=== PATIENT | female | born 1955 | race Caucasian/White ===

== ENCOUNTER → 2017-10-17 15:17 | Outpatient (CLI) | payer OTHER, SELFPAY ==
[2017-10-17 16:10] LABS: AST(SGOT) 20 U/L (15-37); Absolute Lymphocyte Count 1.33 X10^3/ul (0.83-4.51); Absolute Neutrophil Count 2.3 X10^3/uL (2.0-7.7); Alanine Aminotransfer ALT/SGPT 28 U/L (13-56); Albumin, Serum 3.6 g/dL (3.2-5.0); BUN 8 mg/dL (7-18); Basophil# 0.03 X10^3/uL; Basophil% 0.7 % (0-1); CRP 8.18 mg/L (0.0-3.0); Creatinine, Serum 0.78 mg/dL (0.55-1.02); EST Glomerular Filtration Rate 80 mL/min (>60); Eosinophil# 0.04 X10^3/uL; Est Glom Filt Rate - Afr Amer 97 mL/min (>60); Hematocrit 40.8 % (37-47); Hemoglobin 13.4 g/dl (12.0-15.0); Lymphocyte # 1.33 X10^3/ul (4.0); Lymphocyte % 32.6 % (19-41); Mean Corp Hgb Conc 32.8 g/gl (32-36); Mean Corpuscular Hgb 32.9 pg (27.0-32.0); Mean Corpuscular Volume 100.2 fL (81-99); Mean Platelet Vol. 11.3 fl (6.2-12.0); Monocyte% 9.8 % (0-10); Neutrophil # 2.28 X10^3/uL (2.7-7.7); Neutrophil % 55.9 % (47-70); Platelet Count 162 K/mm3 (150-450); RBC Distribution Width CV 12.4 % (11.6-14.6); RBC Distribution Width SD 44.8 fl (35.1-43.9); Red Blood Count 4.07 M/mm3 (4.2-5.4); White Blood Count 4.1 K/mm3 (4.4-11.0)
[2017-10-17 16:18] LABS: POSITIVE COUNT NO; POSITIVE DIFFERENTIAL NO
[2017-10-17 16:19] LABS: POSITIVE MORPHOLOGY NO
[2017-10-17 16:33] LABS: Erythrocyte Sedimentation Rate 7 mm/hr (0-30)
== END ==
PROVIDERS: Family Provider Internal Medicine Infectious Disease; PCP Internal Medicine Infectious Disease; Visit Provider Internal Medicine Rheumatology
DX: M81.0 Age-related osteoporosis without current pathological fracture (principal)
CPT/HCPCS: 36415; 82040; 82565; 84450; 84460; 84520; 85025; 85652; 86140

== ENCOUNTER → 2018-01-20 10:53 | Outpatient (CLI) | payer OTHER, SELFPAY ==
[2018-01-20 12:23] LABS: Vitamin D,25 Hydroxy 34.1 ng/mL (29.95-100.01)
== END ==
PROVIDERS: Family Provider Internal Medicine Infectious Disease; PCP Internal Medicine Infectious Disease; Visit Provider Internal Medicine Rheumatology
DX: M81.0 Age-related osteoporosis without current pathological fracture (principal)
CPT/HCPCS: 36415; 82306; 82310

== ENCOUNTER → 2018-01-23 09:09 | Outpatient (CLI) | payer OTHER, SELFPAY ==
[2018-01-23 10:13] LABS: Absolute Lymphocyte Count 1.15 X10^3/ul (0.83-4.51); Absolute Neutrophil Count 3.7 X10^3/uL (2.0-7.7); Basophil# 0.02 X10^3/uL; Basophil% 0.4 % (0-1); Eosinophil# 0.08 X10^3/uL; Eosinophils% 1.5 % (0-5); Hematocrit 43.1 % (37-47); Hemoglobin 14.2 g/dl (12.0-15.0); Lymphocyte # 1.15 X10^3/ul (4.0); Lymphocyte % 21.8 % (19-41); Mean Corp Hgb Conc 32.9 g/gl (32-36); Mean Corpuscular Hgb 33.1 pg (27.0-32.0); Mean Corpuscular Volume 100.5 fL (81-99); Mean Platelet Vol. 11.4 fl (6.2-12.0); Monocyte# 0.37 X10^3/uL; Neutrophil # 3.65 X10^3/uL (2.7-7.7); Neutrophil % 69.3 % (47-70); Platelet Count 155 K/mm3 (150-450); RBC Distribution Width CV 11.9 % (11.6-14.6); Red Blood Count 4.29 M/mm3 (4.2-5.4); White Blood Count 5.3 K/mm3 (4.4-11.0)
[2018-01-23 10:31] LABS: POSITIVE COUNT NO; POSITIVE DIFFERENTIAL NO; POSITIVE MORPHOLOGY NO
[2018-01-23 10:37] LABS: AST(SGOT) 24 U/L (15-37); Alanine Aminotransfer ALT/SGPT 21 U/L (13-56); Albumin, Serum 3.5 g/dL (3.2-5.0); BUN 8 mg/dL (7-18); CRP < 2.90 mg/L (0.0-3.0); EST Glomerular Filtration Rate 78 mL/min (>60); Est Glom Filt Rate - Afr Amer 94 mL/min (>60)
[2018-01-23 10:38] LABS: Erythrocyte Sedimentation Rate 2 mm/hr (0-30)
== END ==
PROVIDERS: Family Provider Internal Medicine Infectious Disease; PCP Internal Medicine Infectious Disease; Visit Provider Internal Medicine Rheumatology
DX: M81.0 Age-related osteoporosis without current pathological fracture (principal)
CPT/HCPCS: 36415; 82040; 82565; 84450; 84460; 84520; 85025; 85652; 86140

== ENCOUNTER → 2018-05-12 11:48 | Outpatient (CLI) | payer OTHER, SELFPAY ==
--- NOTE | 2018-05-12 11:52 | BI_ITS ---
MAMMOGRAPHY - BILATERAL SCREENING REASON FOR EXAM: Female, 63 years old. Routine annual screening examination. PERTINENT HISTORY: Sister with breast cancer. TECHNIQUE: Digital bilateral breast travis (3D mammographic acquisition) in the CC and MLO projections. 2-D mediolateral oblique (MLO) and craniocaudad (CC) views of both breasts were obtained. CAD: Full Field Digital Mammography with Computer Added Detection was performed. COMPARISON: Comparison is made with prior study dated June 22, 2015 and July 16, 2014. FINDINGS: Breast Composition: There are scattered areas of fibroglandular density. There are no dominant masses or suspicious calcifications. No other significant abnormalities are identified. There has been no significant change since the prior study. BI/SCREENING MAMM (CAD), BILAT IMPRESSION: Stable bilateral screening mammogram. Yearly follow-up mammogram recommended. (A) ASSESSMENT CATEGORY: BIRADS Category 1: Negative. A letter regarding these results will be sent to the patient by the facility within 30 days. Approximately 10% of breast cancers are not detected by mammography. A normal mammogram should not delay biopsy of a clinically suspicious abnormality. [id number] Electronically Signed: Nikolas Masters MD at 11:08 EDT Tel [phone], Service support ,
== END ==
PROVIDERS: Family Provider Internal Medicine Infectious Disease; PCP Internal Medicine Infectious Disease; Referring Provider Obstetrics & Gynecology; Visit Provider Obstetrics & Gynecology
DX: Z12.31 Encounter for screening mammogram for malignant neoplasm of breast (principal)
CPT/HCPCS: 77063; 77067

== ENCOUNTER → 2018-05-14 15:27 | Outpatient (CLI) | payer OTHER, SELFPAY ==
[2018-05-14 17:53] LABS: AST(SGOT) 19 U/L (15-37); Alanine Aminotransfer ALT/SGPT 24 U/L (13-56); Albumin, Serum 3.6 g/dL (3.2-5.0); BUN 9 mg/dL (7-18); CRP < 2.90 mg/L (0.0-3.0); Creatinine, Serum 0.83 mg/dL (0.55-1.02); EST Glomerular Filtration Rate 74 mL/min (>60); Est Glom Filt Rate - Afr Amer 89 mL/min (>60)
[2018-05-14 18:04] LABS: Basophil# 0.04 X10^3/uL; Basophil% 0.7 % (0-1); Eosinophil# 0.07 X10^3/uL; Eosinophils% 1.2 % (0-5); Hematocrit 41.8 % (37-47); Hemoglobin 13.7 g/dl (12.0-15.0); Lymphocyte % 19.2 % (19-41); Mean Corp Hgb Conc 32.8 g/gl (32-36); Mean Corpuscular Hgb 32.6 pg (27.0-32.0); Mean Corpuscular Volume 99.5 fL (81-99); Mean Platelet Vol. 11.7 fl (6.2-12.0); Monocyte% 8.7 % (0-10); Neutrophil # 4.02 X10^3/uL (2.7-7.7); Neutrophil % 70.2 % (47-70); Platelet Count 185 K/mm3 (150-450); RBC Distribution Width CV 12.4 % (11.6-14.6); White Blood Count 5.7 K/mm3 (4.4-11.0)
[2018-05-14 18:11] LABS: POSITIVE COUNT NO; POSITIVE DIFFERENTIAL NO; POSITIVE MORPHOLOGY NO
[2018-05-14 18:23] LABS: Erythrocyte Sedimentation Rate 3 mm/hr (0-30)
== END ==
PROVIDERS: Family Provider Internal Medicine Infectious Disease; PCP Internal Medicine Infectious Disease; Referring Provider Internal Medicine Rheumatology; Visit Provider Internal Medicine Rheumatology
DX: M81.0 Age-related osteoporosis without current pathological fracture (principal)
CPT/HCPCS: 36415; 82040; 82565; 84450; 84460; 84520; 85025; 85652; 86140

== ENCOUNTER → 2018-08-07 11:29 | Outpatient (CLI) | payer OTHER, SELFPAY ==
[2018-08-07 14:10] LABS: Erythrocyte Sedimentation Rate 2 mm/hr (0-30)
[2018-08-07 14:15] LABS: Absolute Lymphocyte Count 1.82 X10^3/ul (0.83-4.51); Absolute Neutrophil Count 2.8 X10^3/uL (2.0-7.7); Basophil# 0.03 X10^3/uL; Basophil% 0.6 % (0-1); Eosinophil# 0.04 X10^3/uL; Eosinophils% 0.8 % (0-5); Hematocrit 44.9 % (37-47); Hemoglobin 14.6 g/dl (12.0-15.0); Lymphocyte # 1.82 X10^3/ul (4.0); Lymphocyte % 36.1 % (19-41); Mean Corp Hgb Conc 32.5 g/gl (32-36); Mean Corpuscular Hgb 32.8 pg (27.0-32.0); Mean Corpuscular Volume 100.9 fL (81-99); Mean Platelet Vol. 11.8 fl (6.2-12.0); Monocyte# 0.36 X10^3/uL; Monocyte% 7.1 % (0-10); Neutrophil # 2.78 X10^3/uL (2.7-7.7); Neutrophil % 55.2 % (47-70); Platelet Count 178 K/mm3 (150-450); RBC Distribution Width CV 12.6 % (11.6-14.6); RBC Distribution Width SD 46.2 fl (35.1-43.9); Red Blood Count 4.45 M/mm3 (4.2-5.4)
[2018-08-07 14:16] LABS: POSITIVE COUNT NO; POSITIVE DIFFERENTIAL NO; POSITIVE MORPHOLOGY NO
[2018-08-07 14:18] LABS: AST(SGOT) 22 U/L (15-37); Alanine Aminotransfer ALT/SGPT 25 U/L (13-56); Albumin, Serum 3.8 g/dL (3.2-5.0); BUN 8 mg/dL (7-18); CRP < 2.90 mg/L (0.0-3.0); Calcium,Total 8.8 mg/dL (8.5-10.1); Creatinine, Serum 0.85 mg/dL (0.55-1.02); EST Glomerular Filtration Rate 72 mL/min (>60); Est Glom Filt Rate - Afr Amer 87 mL/min (>60)
[2018-08-07 14:23] LABS: Vitamin D,25 Hydroxy 74.4 ng/mL (29.95-100.01)
--- OUTSIDE RECORDS SUMMARY | 2018-10-12 03:07 | XMS RPT_ITS ---
:1955 Author Organization OHIP Support Name Relationship Address Phone R Unavailable Unavailable Unavailable SCHRIER, KAVITA Unavailable [address] + [place] [address] Marsha HURTADO Unavailable [address] + [place] [address] R Unavailable Unavailable Unavailable SCHRIER, KAVITA Unavailable [address] + [place] [address] Marsha HURTADO Unavailable [address] + [place] [address] R Unavailable Unavailable Unavailable SCHRIER, KAVITA Unavailable [address] + [place] [address] Marsha HURTADO Unavailable [address] + [place] [address] NOT GIVEN Unavailable Unavailable Unavailable NOT GIVEN Unavailable Unavailable Unavailable NOT GIVEN Unavailable Unavailable Unavailable R Unavailable Unavailable Unavailable NBA KAVITA Unavailable [address] + [place] [address] Marsha HURTADO Unavailable [address] + [place] [address] R Unavailable Unavailable Unavailable NBA, KAVITA Unavailable [address] + [place] [address] Marsha HURTADO Unavailable [address] + [place] [address] R Unavailable Unavailable Unavailable SCHALYSSA, KAVITA Unavailable [address] + [place] [address] Marsha HURTADO Unavailable [address] + [place] [address] Care Team Providers Name Role Phone IVELISSE GRIFFITH MD Admitting Unavailable IVELISSE GRIFFITH MD Attending Unavailable IVELISSE GRIFFITH MD Primary Care Unavailable IVELISSE GRIFFITH MD Consulting Unavailable PROVIDER, UNKNOWN Consulting Unavailable PROVIDER, UNKNOWN Consulting Unavailable PROVIDER, UNKNOWN Consulting Unavailable IVELISSE GIRFFITH MD Admitting Unavailable IVELISSE GRIFFITH MD Attending Unavailable IVELISSE GRIFFITH MD Primary Care Unavailable IVELISSE GRIFFITH MD Consulting Unavailable PROVIDER, UNKNOWN Consulting Unavailable PROVIDER, UNKNOWN Consulting Unavailable PROVIDER, UNKNOWN Consulting Unavailable IVELISSE GRIFFITH MD Admitting Unavailable IVELISSE GRIFFITH MD Attending Unavailable IVELISSE GRIFFITH MD Primary Care Unavailable IVELISSE GRIFFITH MD Consulting Unavailable PROVIDER, UNKNOWN Consulting Unavailable PROVIDER, UNKNOWN Consulting Unavailable PROVIDER, UNKNOWN Consulting Unavailable ALFONSO HAIR Referring Unavailable NADYA, ACHAL Attending Unavailable NADYA, ACHAL Referring Unavailable OMRAN, YASSER Primary Care Unavailable NADYA, ACHAL Attending Unavailable NADYA, ACHAL Referring Unavailable OMRAN, YASSER Primary Care Unavailable NADYA, ACHAL Attending Unavailable NADYA, ACHAL Referring Unavailable OMRAN, YASSER Primary Care Unavailable Alfonso Hair Consulting Unavailable NADYA, ACHAL Attending Unavailable NADYA, ACHAL Referring Unavailable OMRAN, YASSER Primary Care Unavailable Alfonso Hair Consulting Unavailable Sav Lindsay Attending Unavailable OMRAN, YASSER Primary Care Unavailable Sav Lindsay Referring Unavailable NADYA, ACHAL Attending Unavailable NADYA, ACHAL Referring Unavailable OMRAN, YASSER Primary Care Unavailable PROBLEMS PROBLEMS DATE TYPE CONDITION / CODE ATTENDING STATUS SOURCE 08/07/2018 Unknown M81.0 - NADYA, ACHAL Active [place] [facility] osteoporosis [facility] without current Repository pathological fracture / M81.0(ICD-10) 07/16/2018 Active Unknown / NA Active [facility](Unknown) [facility] [place] Repository 2018 Principle Immunodeficiency, IVELISSE GRIFFITH Active [facility] Diagnosis unspecified / MD Rivera D849(ICD-10) Hospital Repository 2018 Secondary Age-related IVELISSE GRIFFITH Active [facility] Diagnosis osteoporosis [facility] without current Hospital pathological Repository fracture / M810(ICD-10) 04/01/2018 Principle Rheumatoid IVELISSE GRIFFITH Active [facility] Diagnosis arthritis, [facility] unspecified / Hospital M069(ICD-10) Repository 03/25/2018 Principle Encounter for IVELISSE GRIFFITH Active Jani Aakash Diagnosis general adult [facility] examination Repository without abnormal findings / Z0000(ICD-10) PROCEDURES PROCEDURES No Procedure Records FoundRESULTS RESULTS ERYTHROCYTE SED RATE Collected: 08/07/2018 Status: F Source: [place] 11:38 AM [facility] REPOSITORY TYPE CODE TESTS RESULT OUT OF RANGE REFERENCE UNITS LAB L102.0000 0-30 mm/hr Normal SED RATE 2 Performed By: #### L101.9900, L100.0100 #### [facility] [address] [place], [address] CBC W/DIFF, AUTOMATED Collected: 08/07/2018 Status: F Source: [place] 11:38 AM [facility] REPOSITORY TYPE CODE TESTS RESULT OUT OF RANGE REFERENCE UNITS LAB L100.1000 4.4-11.0 K/mm3 Normal WBC 5.0 LAB L100.1200 4.2-5.4 M/mm3 Normal RBC 4.45 LAB L100.1300 12.0-15.0 g/dl Normal HGB 14.6 LAB L100.1400 37-47 % Normal HCT 44.9 LAB L100.1500 81-99 fL High MCV 100.9 LAB L100.1600 27.0-32.0 pg High MCH 32.8 LAB L100.1700 32-36 g/gl Normal MCHC 32.5 LAB L100.1810 11.6-14.6 % Normal RDW CV 12.6 LAB L100.1820 35.1-43.9 fl High RDW SD 46.2 LAB L100.1900 150-450 K/mm3 Normal PLT 178 LAB L100.2000 6.2-12.0 fl Normal MPV 11.8 LAB L100.2100 47-70 % Normal NEUT% 55.2 LAB L100.2200 19-41 % Normal LY% 36.1 LAB L100.2300 0-10 % Normal MONO% 7.1 LAB L100.2400 0-5 % Normal EO% 0.8 LAB L100.2500 0-1 % Normal BASO% 0.6 LAB L100.2550 0.0-0.9 % Normal IM GRAN % 0.200 Result Comment: IG% - Immature Granulocytes (promyelocytes, myelocytes and metamyelocytes) > 1% indicates that a LEFT SHIFT is Present. LAB L100.2620 2.0-7.7 X10 3/uL Normal Absolute Neut 2.8 LAB L100.2720 0.83-4.51 X10 3/ul Normal Absolute Lymph 1.82 Performed By: #### L101.9900, L100.0100 #### [facility] [address] [place], [address] BUN Collected: 08/07/2018 Status: F Source: [place] 11:38 AM [facility] REPOSITORY TYPE CODE TESTS RESULT OUT OF RANGE REFERENCE UNITS LAB L501.1000 7-18 mg/dL Normal BUN 8 Performed By: #### L501.1000, L501.1105, L501.1800, L501.2200, L501.4100, L501.4405, L501.6710 #### [facility] [address] [place], [address] SERUM CREATININE AND Collected: 08/07/2018 Status: F Source: [place] GFR 11:38 AM [facility] REPOSITORY TYPE CODE TESTS RESULT OUT OF RANGE REFERENCE UNITS LAB L501.1100 0.55-1.02 mg/dL Normal 0.85 CREAT,SERUM Result Comment: The validity of the calculated GFR AND GFRAA in patients over 70 years has not been determined. Clinical correlation is essential. LAB L501.1110 >60 mL/min Normal EST GFR 72 Result Comment: Non- GFR Calc LAB L501.1115 >60 mL/min Normal EST GFR - AA 87 Result Comment: GFR Calc Performed By: #### L501.1000, L501.1105, L501.1800, L501.2200, L501.4100, L501.4405, L501.6710 #### [facility] [address] [place], [address] ALBUMIN, SERUM Collected: 08/07/2018 Status: F Source: [place] 11:38 AM [facility] REPOSITORY TYPE CODE TESTS RESULT OUT OF RANGE REFERENCE UNITS LAB L501.1800 3.2-5.0 g/dL Normal ALB 3.8 Performed By: #### L501.1000, L501.1105, L501.1800, L501.2200, L501.4100, L501.4405, L501.6710 #### [facility] [address] [place], [address] CALCIUM,TOTAL Collected: 08/07/2018 Status: F Source: [place] 11:38 AM [facility] REPOSITORY TYPE CODE TESTS RESULT OUT OF RANGE REFERENCE UNITS LAB L501.2200 8.5-10.1 mg/dL Normal CA 8.8 Performed By: #### L501.1000, L501.1105, L501.1800, L501.2200, L501.4100, L501.4405, L501.6710 #### [facility] [place], [place], [id number] AST(SGOT) Collected: 08/07/2018 Status: F Source: [place] 11:38 AM [facility] REPOSITORY TYPE CODE TESTS RESULT OUT OF RANGE REFERENCE UNITS LAB L501.4100 15-37 U/L Normal AST 22 Performed By: #### L501.1000, L501.1105, L501.1800, L501.2200, L501.4100, L501.4405, L501.6710 #### [facility] [address] [place], [address] ALANINE AMINOTRANSFERAS Collected: 08/07/2018 Status: F Source: [place] (SGPT) 11:38 AM [facility] REPOSITORY TYPE CODE TESTS RESULT OUT OF RANGE REFERENCE UNITS LAB L501.4405 13-56 U/L Normal ALT 25 Performed By: #### L501.1000, L501.1105, L501.1800, L501.2200, L501.4100, L501.4405, L501.6710 #### [facility] [address] [place], [address] CRP Collected: 08/07/2018 Status: F Source: [place] 11:38 AM [facility] REPOSITORY TYPE CODE TESTS RESULT OUT OF RANGE REFERENCE UNITS LAB L501.6710 0.0-3.0 mg/L Normal < 2.90 C-REACTIVE PROT Result Comment: C-Reactive Protein (CRP) provides useful information for the diagnosis, therapy and monitoring of inflammatory processes and associated diseases. For the evaluation of Relative Risk for Cardiovascular Disease, a High Sensitivity CRP (HSCRP) should be ordered. Performed By: #### L501.1000, L501.1105, L501.1800, L501.2200, L501.4100, L501.4405, L501.6710 #### [facility] [address] [place], [place], [address] VITAMIN D,25 HYDROXY Collected: 08/07/2018 Status: F Source: [place] 11:38 AM [facility] REPOSITORY TYPE CODE TESTS RESULT OUT OF RANGE REFERENCE UNITS LAB L506.1000 29.95-100.01 ng/mL Normal Vitamin D 74.4 25-OH Result Comment: Vitamin D 25(OH) Status Range Deficiency <20 ng/mL (50nmol/L) Insuffciency 20 - 30 ng/mL (50 - 75 nmol/L) Sufficiency 30 - 100 ng/mL (75 - 250 nmol/L) Toxicity >100 ng/mL (>250 nmol/L) Performed By: #### L506.1000 #### [facility] [address] [place], [place], [address] MRI BRAIN WO/W Observed: 07/16/2018 Status: F [facility] REPOSITORY * * *Final Report* * * DATE OF EXAM: Jul 16 2018 11:55AM [facility] 0295 - MRI BRAIN WO/W IVCON / PROCEDURE REASON: MULTIPLE SCLEROSIS * * * * Physician Interpretation * * * * EXAMINATION: MRI BRAIN WO/W IVCON HISTORY: Multiple sclerosis. Routine follow-up TECHNIQUE: Brain MRI with demyelinating disease protocol with and without IV gadolinium. MQ: [id number] Contrast: 9ml mL Dotarem IV COMPARISON: 11/13/2016 brain MRI without and with contrast RESULT: MR BRAIN: Parenchymal Findings: There are multiple foci of hyperintensity on FLAIR and T2 within the white matter, compatible with the clinical diagnosis of multiple sclerosis. New T2 Lesions: None Interval Improvement: None. New Enhancing Lesions: None T2 Gary of Disease: Mild in the supratentorial white matter, and more advanced in severity in the aldo, similar to the prior exam. Parenchymal Volume Loss: Mild. Other Significant Findings/Site(s) of New T2 Lesion(s): Minimally increased heterogenous signal in the right frontal white matter between 2 previously discrete lesions (compare series 2, image 10 on the present study versus series 2, image 9 on the prior study), although no discrete new lesion is present in this region. IMPRESSION: Multiple intracranial white matter lesions compatible with multiple sclerosis. No new T2 lesions and no new enhancing lesions. Mild parenchymal volume loss. Other Significant Intracranial Findings: None *Note: New T2 Lesions includes both new and enlarging plaques on T2-weighted FLAIR images (new lesions greater than or equal to 5mm3 or an increase in diameter of an existing lesion by greater than or equal to 2mm). Shop Manager: PSCB Transcribe Date/Time: Jul 16 2018 2:25P Dictated by : GOLD CARRILLO MD This examination was interpreted and the report reviewed and electronically signed by: GOLD CARRILLO MD on Jul 16 2018 2:32PM EST [id number] PROGRESS Observed: 07/16/2018 Status: COMPLETED Source: [place] EM 11:45 AM [facility] REPOSITORY O ID: [id number] Author: Arianna (Luann Hess Service: (none) Author Type: [place] Type: Progress Notes Filed: 07/16/2018 11:46 AM Note Text: Radiology Service Progress Note PATIENT NAME: Cookie Hurtado DATE OF SERVICE: July 16, 2018 TIME: 11:45 AM PATIENT IDENTITY VERIFICATION COMPLETED USING TWO (2) METHODS: Patient confirmed name verbally and Date of . PATIENT GENDER DATA: Female. status: : No status: NO. PATIENT RELEVANT IMPLANT DATA REVIEWED: Yes CONTRAST INDUCED NEPHROPATHY RISK FACTORS: Patient age > 60 years CREATININE: No results found for: CREAT, EGFROTH, EGFRAA P.O.C.T. RESULTS: Outside Creatinine: .83 mg/dl, Calculated GFR 74, Date 05/14/18 July 16, 2018 RADIOLOGIST NOTIFIED?: No ALLERGIES: Reviewed and unchanged CONTRAST ALLERGY: NO. PERIPHERAL IV ACCESS: Ambulatory: IV type: A peripheral IV was started in the Right antecubital site with a Angio cath: 22 gauge., Site assessment: Clean,Dry and Intact, Site disposition Discontinued RADIOLOGY DEPARTMENT: MR; Exam(s) Completed: Head: Multiple Sclerosis SIGNED BY: RT Oumar July 16, 2018 11:45 AM BUN Collected: 05/14/2018 Status: F Source: [place] 3:40 PM [facility] REPOSITORY TYPE CODE TESTS RESULT OUT OF RANGE REFERENCE UNITS LAB L501.1000 7-18 mg/dL Normal BUN 9 Performed By: #### L501.1000, L501.1105, L501.1800, L501.4100, L501.4405, L501.6710 #### [facility] [address] [place], [place], [id number] SERUM CREATININE AND Collected: 05/14/2018 Status: F Source: [place] G[place] 3:40 PM [facility] REPOSITORY TYPE CODE TESTS RESULT OUT OF RANGE REFERENCE UNITS LAB L501.1100 0.55-1.02 mg/dL Normal 0.83 CREAT,SERUM Result Comment: The validity of the calculated GFR AND GFRAA in patients over 70 years has not been determined. Clinical correlation is essential. LAB L501.1110 >60 mL/min Normal EST GFR 74 Result Comment: Non- GFR Calc LAB L501.1115 >60 mL/min Normal EST GFR - AA 89 Result Comment: GFR Calc Performed By: #### L501.1000, L501.1105, L501.1800, L501.4100, L501.4405, L501.6710 #### [facility] [address] [place], [address] ALBUMIN, SERUM Collected: 05/14/2018 Status: F Source: [place] 3:40 PM [facility] REPOSITORY TYPE CODE TESTS RESULT OUT OF RANGE REFERENCE UNITS LAB L501.1800 3.2-5.0 g/dL Normal ALB 3.6 Performed By: #### L501.1000, L501.1105, L501.1800, L501.4100, L501.4405, L501.6710 #### [facility] [address] [place], [place], [address] AST(SGOT) Collected: 05/14/2018 Status: F Source: [place] 3:40 PM [facility] REPOSITORY TYPE CODE TESTS RESULT OUT OF RANGE REFERENCE UNITS LAB L501.4100 15-37 U/L Normal AST 19 Result Comment: Slight Hemolysis, Result may be falsely increased. Performed By: #### L501.1000, L501.1105, L501.1800, L501.4100, L501.4405, L501.6710 #### [facility] [address] [place], [place], [id number] ALANINE AMINOTRANSFERAS Collected: 05/14/2018 Status: F Source: [place] (SGPT) 3:40 PM [facility] REPOSITORY TYPE CODE TESTS RESULT OUT OF RANGE REFERENCE UNITS LAB L501.4405 13-56 U/L Normal ALT 24 Performed By: #### L501.1000, L501.1105, L501.1800, L501.4100, L501.4405, L501.6710 #### [facility] [address] [facility] [place], [place], [id number] CRP Collected: 05/14/2018 Status: F Source: [place] 3:40 PM [facility] REPOSITORY TYPE CODE TESTS RESULT OUT OF RANGE REFERENCE UNITS LAB L501.6710 0.0-3.0 mg/L Normal < 2.90 C-REACTIVE PROT Result Comment: C-Reactive Protein (CRP) provides useful information for the diagnosis, therapy and monitoring of inflammatory processes and associated diseases. For the evaluation of Relative Risk for Cardiovascular Disease, a High Sensitivity CRP (HSCRP) should be ordered. Performed By: #### L501.1000, L501.1105, L501.1800, L501.4100, L501.4405, L501.6710 #### [facility] [address] [place], [place], [id number] CBC W/DIFF, AUTOMATED Collected: 05/14/2018 Status: F Source: [place] 3:40 PM [facility] REPOSITORY TYPE CODE TESTS RESULT OUT OF RANGE REFERENCE UNITS LAB L100.1000 4.4-11.0 K/mm3 Normal WBC 5.7 LAB L100.1200 4.2-5.4 M/mm3 Normal RBC 4.20 LAB L100.1300 12.0-15.0 g/dl Normal HGB 13.7 LAB L100.1400 37-47 % Normal HCT 41.8 LAB L100.1500 81-99 fL High MCV 99.5 LAB L100.1600 27.0-32.0 pg High MCH 32.6 LAB L100.1700 32-36 g/gl Normal MCHC 32.8 LAB L100.1810 11.6-14.6 % Normal RDW CV 12.4 LAB L100.1820 35.1-43.9 fl High RDW SD 45.0 LAB L100.1900 150-450 K/mm3 Normal PLT 185 LAB L100.2000 6.2-12.0 fl Normal MPV 11.7 LAB L100.2100 47-70 % High NEUT% 70.2 LAB L100.2200 19-41 % Normal LY% 19.2 LAB L100.2300 0-10 % Normal MONO% 8.7 LAB L100.2400 0-5 % Normal EO% 1.2 LAB L100.2500 0-1 % Normal BASO% 0.7 LAB L100.2550 0.0-0.9 % Normal IM GRAN % 0.000 Result Comment: IG% - Immature Granulocytes (promyelocytes, myelocytes and metamyelocytes) > 1% indicates that a LEFT SHIFT is Present. LAB L100.2620 2.0-7.7 X10 3/uL Normal Absolute Neut 4.0 LAB L100.2720 0.83-4.51 X10 3/ul Normal Absolute Lymph 1.10 Performed By: #### L100.0100, L101.9900 #### [facility] [address] [facility] [place], [address] ERYTHROCYTE SED RATE Collected: 05/14/2018 Status: F Source: [place] 3:40 PM [facility] REPOSITORY TYPE CODE TESTS RESULT OUT OF RANGE REFERENCE UNITS LAB L102.0000 0-30 mm/hr Normal SED RATE 3 Performed By: #### L100.0100, L101.9900 #### [facility] [address] [place] [place], [address] SCREENING MAMM (CAD), Observed: 05/12/2018 Status: F Source: [place] 11:54 AM [facility] REPOSITORY [facility] Imaging Services [address] [place] [address] SCREENING MAMM (CAD), BILAT MR#: [id number] Acct: [id number] Name: COOKIE HURTADO Rep #: [id number] : 1955 F 63 From: Nikolas Masters MD PCP: IVELISSE GRIFFITH Status: REG CLI Study: SCREENING MAMM (CAD), BILAT Date of Exam: 05/12/18 Exam# [id number] Ordering Dr: Sav Lindsay MD MAMMOGRAPHY - BILATERAL SCREENING REASON FOR EXAM: Female, 63 years old. Routine annual screening examination. PERTINENT HISTORY: Sister with breast cancer. TECHNIQUE: Digital bilateral breast travis (3D mammographic acquisition) in the CC and MLO projections. 2-D mediolateral oblique (MLO) and craniocaudad (CC) views of both breasts were obtained. CAD: Full Field Digital Mammography with Computer Added Detection was performed. COMPARISON: Comparison is made with prior study dated June 22, 2015 and July 16, 2014. FINDINGS: Breast Composition: There are scattered areas of fibroglandular density. There are no dominant masses or suspicious calcifications. No other significant abnormalities are identified. There has been no significant change since the prior study. BI/SCREENING MAMM (CAD), BILAT IMPRESSION: Stable bilateral screening mammogram. Yearly follow-up mammogram recommended. (A) ASSESSMENT CATEGORY: BIRADS Category 1: Negative. A letter regarding these results will be sent to the patient by the facility within 30 days. Approximately 10% of breast cancers are not detected by mammography. A normal mammogram should not delay biopsy of a clinically suspicious abnormality. [id number] Electronically Signed: Nikolas Masters MD at 11:08 EDT Tel [phone], Service support , CC: Sav Lindsay MD; IVELISSE GRIFFITH Shop Manager: Signed CBC W/DIFF, AUTOMATED Collected: 01/23/2018 Status: F Source: [place] 9:23 AM [facility] REPOSITORY TYPE CODE TESTS RESULT OUT OF RANGE REFERENCE UNITS LAB L100.1000 4.4-11.0 K/mm3 Normal WBC 5.3 LAB L100.1200 4.2-5.4 M/mm3 Normal RBC 4.29 LAB L100.1300 12.0-15.0 g/dl Normal HGB 14.2 LAB L100.1400 37-47 % Normal HCT 43.1 LAB L100.1500 81-99 fL High MCV 100.5 LAB L100.1600 27.0-32.0 pg High MCH 33.1 LAB L100.1700 32-36 g/gl Normal MCHC 32.9 LAB L100.1810 11.6-14.6 % Normal RDW CV 11.9 LAB L100.1820 35.1-43.9 fl Normal RDW SD 43.0 LAB L100.1900 150-450 K/mm3 Normal PLT 155 LAB L100.2000 6.2-12.0 fl Normal MPV 11.4 LAB L100.2100 47-70 % Normal NEUT% 69.3 LAB L100.2200 19-41 % Normal LY% 21.8 LAB L100.2300 0-10 % Normal MONO% 7.0 LAB L100.2400 0-5 % Normal EO% 1.5 LAB L100.2500 0-1 % Normal BASO% 0.4 LAB L100.2550 0.0-0.9 % Normal IM GRAN % 0.000 Result Comment: IG% - Immature Granulocytes (promyelocytes, myelocytes and metamyelocytes) > 1% indicates that a LEFT SHIFT is Present. LAB L100.2620 2.0-7.7 X10 3/uL Normal Absolute Neut 3.7 LAB L100.2720 0.83-4.51 X10 3/ul Normal Absolute Lymph 1.15 Performed By: #### L100.0100, L101.9900 #### [facility] [address] [place], [address] ERYTHROCYTE SED RATE Collected: 01/23/2018 Status: F Source: [place] 9:23 AM [facility] REPOSITORY TYPE CODE TESTS RESULT OUT OF RANGE REFERENCE UNITS LAB L102.0000 0-30 mm/hr Normal SED RATE 2 Performed By: #### L100.0100, L101.9900 #### [facility] [address] [place], [address] BUN Collected: 01/23/2018 Status: F Source: [place] 9:23 AM [facility] REPOSITORY TYPE CODE TESTS RESULT OUT OF RANGE REFERENCE UNITS LAB L501.1000 7-18 mg/dL Normal BUN 8 Performed By: #### L501.1000, L501.1105, L501.1800, L501.4100, L501.4405, L501.6710 #### [facility] [address] [place], [address] SERUM CREATININE AND Collected: 01/23/2018 Status: F Source: [place] GFR 9:23 AM [facility] REPOSITORY TYPE CODE TESTS RESULT OUT OF RANGE REFERENCE UNITS LAB L501.1100 0.55-1.02 mg/dL Normal 0.80 CREAT,SERUM Result Comment: The validity of the calculated GFR AND GFRAA in patients over 70 years has not been determined. Clinical correlation is essential. LAB L501.1110 >60 mL/min Normal EST GFR 78 Result Comment: Non- GFR Calc LAB L501.1115 >60 mL/min Normal EST GFR - AA 94 Result Comment: GFR Calc Performed By: #### L501.1000, L501.1105, L501.1800, L501.4100, L501.4405, L501.6710 #### [facility] [address] [place], [address] ALBUMIN, SERUM Collected: 01/23/2018 Status: F Source: [place] 9:23 AM [facility] REPOSITORY TYPE CODE TESTS RESULT OUT OF RANGE REFERENCE UNITS LAB L501.1800 3.2-5.0 g/dL Normal ALB 3.5 Performed By: #### L501.1000, L501.1105, L501.1800, L501.4100, L501.4405, L501.6710 #### [facility] [address] [place], [address] AST(SGOT) Collected: 01/23/2018 Status: F Source: [place] 9:23 AM [facility] REPOSITORY TYPE CODE TESTS RESULT OUT OF RANGE REFERENCE UNITS LAB L501.4100 15-37 U/L Normal AST 24 Performed By: #### L501.1000, L501.1105, L501.1800, L501.4100, L501.4405, L501.6710 #### [facility] [address] [facility] [address] [place], [place], [address] ALANINE AMINOTRANSFERAS Collected: 01/23/2018 Status: F Source: [place] (SGPT) 9:23 AM [facility] REPOSITORY TYPE CODE TESTS RESULT OUT OF RANGE REFERENCE UNITS LAB L501.4405 13-56 U/L Normal ALT 21 Performed By: #### L501.1000, L501.1105, L501.1800, L501.4100, L501.4405, L501.6710 #### [facility] [address] [place], [address] CRP Collected: 01/23/2018 Status: F Source: [place] 9:23 AM [facility] REPOSITORY TYPE CODE TESTS RESULT OUT OF RANGE REFERENCE UNITS LAB L501.6710 0.0-3.0 mg/L Normal < 2.90 C-REACTIVE PROT Result Comment: C-Reactive Protein (CRP) provides useful information for the diagnosis, therapy and monitoring of inflammatory processes and associated diseases. For the evaluation of Relative Risk for Cardiovascular Disease, a High Sensitivity CRP (HSCRP) should be ordered. Performed By: #### L501.1000, L501.1105, L501.1800, L501.4100, L501.4405, L501.6710 #### [facility] [address] [place], [address] CALCIUM,TOTAL Collected: 01/20/2018 Status: F Source: [place] 10:56 AM [facility] REPOSITORY TYPE CODE TESTS RESULT OUT OF RANGE REFERENCE UNITS LAB L501.2200 8.5-10.1 mg/dL Normal CA 9.0 Performed By: #### L501.2200 #### [facility] [address] [place], [address] VITAMIN D,25 HYDROXY Collected: 01/20/2018 Status: F Source: [place] 10:56 AM [facility] REPOSITORY TYPE CODE TESTS RESULT OUT OF RANGE REFERENCE UNITS LAB L506.1000 29.95-100.01 ng/mL Normal Vitamin D 34.1 25-OH Result Comment: Vitamin D 25(OH) Status Range Deficiency <20 ng/mL (50nmol/L) Insuffciency 20 - 30 ng/mL (50 - 75 nmol/L) Sufficiency 30 - 100 ng/mL (75 - 250 nmol/L) Toxicity >100 ng/mL (>250 nmol/L) Performed By: #### L506.1000 #### [facility] [address] [place], [address] BUN Collected: 10/17/2017 Status: F Source: BLAIR 3:26 PM [facility] REPOSITORY TYPE CODE TESTS RESULT OUT OF RANGE REFERENCE UNITS LAB L501.1000 7-18 mg/dL Normal BUN 8 Performed By: #### L501.1000, L501.1105, L501.1800, L501.4100, L501.4405, L501.6710 #### [facility] [address] [place], [address] SERUM CREATININE AND Collected: 10/17/2017 Status: F Source: BLAIR GFR 3:26 PM [facility] REPOSITORY TYPE CODE TESTS RESULT OUT OF RANGE REFERENCE UNITS LAB L501.1100 0.55-1.02 mg/dL Normal 0.78 CREAT,SERUM Result Comment: The validity of the calculated GFR AND GFRAA in patients over 70 years has not been determined. Clinical correlation is essential. LAB L501.1110 >60 mL/min Normal EST GFR 80 Result Comment: Non- GFR Calc LAB L501.1115 >60 mL/min Normal EST GFR - AA 97 Result Comment: GFR Calc Performed By: #### L501.1000, L501.1105, L501.1800, L501.4100, L501.4405, L501.6710 #### [facility] [address] [place], [address] ALBUMIN, SERUM Collected: 10/17/2017 Status: F Source: LAPEL 3:26 PM [facility] REPOSITORY TYPE CODE TESTS RESULT OUT OF RANGE REFERENCE UNITS LAB L501.1800 3.2-5.0 g/dL Normal ALB 3.6 Performed By: #### L501.1000, L501.1105, L501.1800, L501.4100, L501.4405, L501.6710 #### [facility] [address] [place], [address] AST(SGOT) Collected: 10/17/2017 Status: F Source: LAPEL 3:26 PM [facility] REPOSITORY TYPE CODE TESTS RESULT OUT OF RANGE REFERENCE UNITS LAB L501.4100 15-37 U/L Normal AST 20 Performed By: #### L501.1000, L501.1105, L501.1800, L501.4100, L501.4405, L501.6710 #### [facility] [address] [place], [address] ALANINE AMINOTRANSFERAS Collected: 10/17/2017 Status: F Source: LAPEL (SGPT) 3:26 PM [facility] REPOSITORY TYPE CODE TESTS RESULT OUT OF RANGE REFERENCE UNITS LAB L501.4405 13-56 U/L Normal ALT 28 Result Comment: Please note revised ALT reference range effective 2017. Performed By: #### L501.1000, L501.1105, L501.1800, L501.4100, L501.4405, L501.6710 #### [facility] [address] [place], [address] CRP Collected: 10/17/2017 Status: F Source: LAPEL 3:26 PM [facility] REPOSITORY TYPE CODE TESTS RESULT OUT OF RANGE REFERENCE UNITS LAB L501.6710 0.0-3.0 mg/L High 8.18 C-REACTIVE PROT Result Comment: C-Reactive Protein (CRP) provides useful information for the diagnosis, therapy and monitoring of inflammatory processes and associated diseases. For the evaluation of Relative Risk for Cardiovascular Disease, a High Sensitivity CRP (HSCRP) should be ordered. Performed By: #### L501.1000, L501.1105, L501.1800, L501.4100, L501.4405, L501.6710 #### [facility] [address] [place], [place], [address] CBC W/DIFF, AUTOMATED Collected: 10/17/2017 Status: F Source: LAPEL 3:26 PM [facility] REPOSITORY TYPE CODE TESTS RESULT OUT OF RANGE REFERENCE UNITS LAB L100.1000 4.4-11.0 K/mm3 Low WBC 4.1 LAB L100.1200 4.2-5.4 M/mm3 Low RBC 4.07 LAB L100.1300 12.0-15.0 g/dl Normal HGB 13.4 LAB L100.1400 37-47 % Normal HCT 40.8 LAB L100.1500 81-99 fL High MCV 100.2 LAB L100.1600 27.0-32.0 pg High MCH 32.9 LAB L100.1700 32-36 g/gl Normal MCHC 32.8 LAB L100.1810 11.6-14.6 % Normal RDW CV 12.4 LAB L100.1820 35.1-43.9 fl High RDW SD 44.8 LAB L100.1900 150-450 K/mm3 Normal PLT 162 LAB L100.2000 6.2-12.0 fl Normal MPV 11.3 LAB L100.2100 47-70 % Normal NEUT% 55.9 LAB L100.2200 19-41 % Normal LY% 32.6 LAB L100.2300 0-10 % Normal MONO% 9.8 LAB L100.2400 0-5 % Normal EO% 1.0 LAB L100.2500 0-1 % Normal BASO% 0.7 LAB L100.2550 0.0-0.9 % Normal IM GRAN % 0.000 Result Comment: IG% - Immature Granulocytes (promyelocytes, myelocytes and metamyelocytes) > 1% indicates that a LEFT SHIFT is Present. LAB L100.2620 2.0-7.7 X10 3/uL Normal Absolute Neut 2.3 LAB L100.2720 0.83-4.51 X10 3/ul Normal Absolute Lymph 1.33 Performed By: #### L100.0100, L101.9900 #### [facility] [address] [place], [place], [address] ERYTHROCYTE SED RATE Collected: 10/17/2017 Status: F Source: LAPEL 3:26 PM [facility] REPOSITORY TYPE CODE TESTS RESULT OUT OF RANGE REFERENCE UNITS LAB L102.0000 0-30 mm/hr Normal SED RATE 7 Performed By: #### L100.0100, L101.9900 #### [facility] [address] [place], [place], [address] ALLERGIES ALLERGIES DATE TYPE / CODE NAME / CODE REACTION SEVERITY SOURCE DRUG/[id number](SNO AMOXICILLIN-POT DIARRHEA [place] [address]) CLAVULANATE [facility] [place] Repository Drug succinylcholine Unknown Unknown [place] 4 Allergy/089137626( chloride/W757561053( Community SNOMED CT) RXNORM) Hospital Repository Drug erythromycin Nausea/Vom/D Unknown [place] 4 Allergy/098221685( base/[id number](RXNO iarrhea Community SNOMED CT) RM) Hospital Repository Miscellaneous OTHER [place] 6 Allergy/706990406( [facility] SNOMED CT) [place] Repository DRUG/691695996(SNO ERYTHROMYCIN [place] [address]) [facility] [place] Repository DRUG PHENAZOPYRIDINE HCL [place] 6 INGREDI/656333506( [facility] SNOMED CT) [place] Repository Drug SULFA (SULFONAMIDE GI UPSET [place] 6 Class/381304993(SN ANTIBIOTICS) [facility] OMED CT) [place] Repository Miscellaneous No Known Drug Moderate Jani Pomeremary jane Allergy/848280076( Allergies ([facility]) Modifier) Hospital (Qualifier Repository Value) ENCOUNTERS ENCOUNTERS ADMIT/DISCHARGE ACCOUNT ADMITTING ENCOUNTER LOCATION SOURCE NUMBER CLASS 08/07/2018 [id number] [facility] ing:MTLAB Repository 07/16/2018/07/16/20 [id number] [address]ulatory [address] Repository 05/14/2018 [id number] [facility] ing:MTLAB Repository 05/12/2018 [id number] [facility] ing:OPBI Repository 2018 [id number] [facility] 04/01/2018 [id number] IVELISSE GRIFFITH [facility] Repository 03/25/2018/03/25/20 [id number] IVELISSE GRIFFITH [address] Repository 01/23/2018 [id number] [facility] ing:MTLAB Repository 01/20/2018 [id number] [facility] ing:MTLAB Repository 10/17/2017 [id number] [facility] ing:MTLAB Repository PAYERS PAYERS ENCOUNTER GUARANTOR PAYER SUBSCRIBER SOURCE 08/07/2018 Marsha CHILDSKHURRAM [employer] [id number] E Insurance:AULTCAREPol WAITKUNASDOB: [facility]ly [facility] icy Number: [id number] [id number] Repository [address]23[address]Lcz: (040) e Date:8529-51-53SJ [phone] () [address] [place] [address]DH: 08/07/2018 Secondary NOT GIVENUNK [place] Insurance:SELF PAY [facility] Number: Effective Repository Date:2018-08-07 05/14/2018 Marsha NORMAN [employer] [id number] E Insurance:AULTCAREPol WAITKUNASDOB: [facility] icy Number: [id number], [place] [id number] Repository 22002Plw: (888) e Date:5491-99-30ZQ [phone] () [address] [place] [address]NP: 05/14/2018 Secondary NOT GIVENUNK [place] Insurance:SELF PAY [facility] Number: Effective Repository Date:2018-05-14 05/12/2018 Marsha LAGUNAS Primary COOKIE [place] [id number] E Insurance:AULTCAREPol WAITKUNASDOB: [facility] icy Number: [id number], [place] [id number] Repository [address]Jar: (166) e Date:4479-93-03NA [phone] () [address] [place] [address]DE: 05/12/2018 Secondary NOT GIVENUNK [place] Insurance:SELF PAY [facility] Number: Effective Repository Date:2018 2018 COOKIE Morris Primary COOKIE Reesene WAITKUNASDOB: Insurance:AULTCAREPol WAITKUNASDOB: [facility] E icy Number: [id number] [place] [address] [id number] [address] [place], [place] e Date:1017-52-02Lpfx [place], [place] [address]Cyv: (330) Name: [id number] [phone] () 03/25/2018 COOKIE Morris Primary COOKIE Reesene WAITKUNASDOB: Insurance:ANTHEMPolic WAITKUNASDOB: [facility] E y Number: [id number] [place] [address] [id number] [address] [place], [place] Date:9526-61-82Kbwo [place], [place] [address]Yoc: (330) Name: [id number] [phone] () 01/23/2018 Marsha NORMAN [place] [id number] E Insurance:AULTCAREPol WAITKUNASDOB: [facility] AGATAHDaniele icy Number: [id number], [place] [id number] Repository [address]Ilu: (330) e Date:5935-30-24QR [phone] () [address] [place] [address]OT: 01/23/2018 Secondary NOT GIVENUNK [place] Insurance:SELF PAY [facility] Number: Effective Repository Date:2018-01-23 01/20/2018 D NORMAN [facility] COOKIE Mroris [place] [id number] E Insurance:AULTCAREPol WAITKUNASDOB: [facility] AGATHA icy Number: [id number], [place] [id number] Repository [address]Vbs: (992) e Date:0762-11-52NI [phone] () [address] [place] [address]ES: 01/20/2018 Secondary NOT GIVENUNK [place] Insurance:SELF PAY [facility] Number: Effective Repository Date:2018-01-20 10/17/2017 D Norman [facility] COOKIE [place] [id number] E Insurance:AULTCAREPol WAITKUNASDOB: [facility] [place] icy Number: [id number] [id number] Repository [address]Wvw: (330) e Date:2462-14-83UX [phone] () [address] [place] [address]HO: 10/17/2017 Secondary NOT GIVENUNK [place] Insurance:SELF PAY [facility] Number: Effective Repository Date:2017-10-17
== END ==
PROVIDERS: Family Provider Internal Medicine Infectious Disease; PCP Internal Medicine Infectious Disease; Referring Provider Internal Medicine Rheumatology; Visit Provider Internal Medicine Rheumatology
DX: M81.0 Age-related osteoporosis without current pathological fracture (principal)
CPT/HCPCS: 36415; 82040; 82306; 82310; 82565; 84450; 84460; 84520; 85025; 85652; 86140

== ENCOUNTER → 2018-08-22 15:07 | Outpatient (CLI) | payer OTHER, SELFPAY ==
[2018-08-22 17:13] LABS: Absolute Lymphocyte Count 1.01 X10^3/ul (0.83-4.51); Absolute Neutrophil Count 4.1 X10^3/uL (2.0-7.7); Basophil# 0.02 X10^3/uL; Basophil% 0.4 % (0-1); Eosinophil# 0.01 X10^3/uL; Eosinophils% 0.2 % (0-5); Hematocrit 42.4 % (37-47); Lymphocyte # 1.01 X10^3/ul (4.0); Lymphocyte % 18.3 % (19-41); Mean Corpuscular Hgb 33.4 pg (27.0-32.0); Mean Corpuscular Volume 101.2 fL (81-99); Mean Platelet Vol. 11.8 fl (6.2-12.0); Monocyte# 0.34 X10^3/uL; Monocyte% 6.1 % (0-10); Neutrophil # 4.14 X10^3/uL (2.7-7.7); Neutrophil % 74.8 % (47-70); POSITIVE COUNT NO; POSITIVE DIFFERENTIAL NO; POSITIVE MORPHOLOGY NO; Platelet Count 176 K/mm3 (150-450); RBC Distribution Width CV 12.5 % (11.6-14.6); RBC Distribution Width SD 45.6 fl (35.1-43.9); Red Blood Count 4.19 M/mm3 (4.2-5.4); White Blood Count 5.5 K/mm3 (4.4-11.0)
[2018-08-22 17:33] LABS: AST(SGOT) 20 U/L (15-37); Alanine Aminotransfer ALT/SGPT 24 U/L (13-56); Albumin, Serum 3.9 g/dL (3.2-5.0); Alkaline Phosphatase 88 U/L (45-117); Bilirubin, Direct 0.08 mg/dL (0.00-0.30); Globulin 3.3 g/dL (2.2-4.2); Protein, Total 7.2 g/dL (6.4-8.2)
== END ==
PROVIDERS: Family Provider Internal Medicine Infectious Disease; PCP Internal Medicine Infectious Disease; Referring Provider Psychiatry & Neurology Neurology; Visit Provider Psychiatry & Neurology Neurology
DX: G35 Multiple sclerosis (principal); M06.9 Rheumatoid arthritis, unspecified
CPT/HCPCS: 36415; 80076; 85025

== ENCOUNTER → 2018-10-28 | Outpatient (CLI) | payer OTHER, SELFPAY ==
[2018-10-28 12:26] LABS: Erythrocyte Sedimentation Rate 1 mm/hr (0-30)
[2018-10-28 12:31] LABS: Absolute Lymphocyte Count 1.26 X10^3/ul (0.83-4.51); Basophil# 0.02 X10^3/uL; Basophil% 0.4 % (0-1); Eosinophil# 0.07 X10^3/uL; Eosinophils% 1.4 % (0-5); Hematocrit 42.5 % (37-47); Lymphocyte # 1.26 X10^3/ul (4.0); Lymphocyte % 25.2 % (19-41); Mean Corp Hgb Conc 32.9 g/gl (32-36); Mean Platelet Vol. 11.3 fl (6.2-12.0); Monocyte# 0.61 X10^3/uL; Monocyte% 12.2 % (0-10); Neutrophil # 3.03 X10^3/uL (2.7-7.7); Neutrophil % 60.6 % (47-70); POSITIVE COUNT NO; POSITIVE DIFFERENTIAL NO; POSITIVE MORPHOLOGY NO; Platelet Count 174 K/mm3 (150-450); RBC Distribution Width CV 11.7 % (11.6-14.6); RBC Distribution Width SD 40.7 fl (35.1-43.9); Red Blood Count 4.38 M/mm3 (4.2-5.4)
[2018-10-28 12:47] LABS: AST(SGOT) 24 U/L (15-37); Alanine Aminotransfer ALT/SGPT 29 U/L (13-56); Albumin, Serum 3.8 g/dL (3.2-5.0); BUN 11 mg/dL (7-18); CRP < 2.90 mg/L (0.0-3.0); Calcium,Total 8.8 mg/dL (8.5-10.1); Creatinine, Serum 0.75 mg/dL (0.55-1.02); EST Glomerular Filtration Rate 84 mL/min (>60); Est Glom Filt Rate - Afr Amer 101 mL/min (>60); Vitamin D,25 Hydroxy 78.5 ng/mL (29.95-100.01)
== END | disposition home or self-care (01) ==
LOC: MTLAB 11:02
PROVIDERS: Family Provider Internal Medicine Infectious Disease; PCP Internal Medicine Infectious Disease; Referring Provider Internal Medicine Rheumatology; Visit Provider Internal Medicine Rheumatology
DX: M05.79 Rheumatoid arthritis with rheumatoid factor of multiple sites without organ or systems involvement (principal); G35 Multiple sclerosis
CPT/HCPCS: 36415; 82040; 82306; 82310; 82565; 84450; 84460; 84520; 85025; 85652; 86140

== ENCOUNTER → 2019-01-27 | Outpatient (CLI) | payer OTHER, SELFPAY ==
[2019-01-27 13:37] LABS: Absolute Lymphocyte Count 1.33 X10^3/ul (0.83-4.51); Absolute Neutrophil Count 2.8 X10^3/uL (2.0-7.7); Basophil# 0.02 X10^3/uL; Basophil% 0.4 % (0-1); Hematocrit 42.3 % (37-47); Hemoglobin 13.9 g/dl (12.0-15.0); Lymphocyte # 1.33 X10^3/ul (4.0); Lymphocyte % 27.3 % (19-41); Mean Corp Hgb Conc 32.9 g/gl (32-36); Mean Corpuscular Hgb 30.9 pg (27.0-32.0); Mean Platelet Vol. 10.5 fl (6.2-12.0); Monocyte# 0.63 X10^3/uL; Monocyte% 12.9 % (0-10); Neutrophil % 57.4 % (47-70); Platelet Count 200 K/mm3 (150-450); RBC Distribution Width CV 12.5 % (11.6-14.6); RBC Distribution Width SD 42.6 fl (35.1-43.9); White Blood Count 4.9 K/mm3 (4.4-11.0)
[2019-01-27 13:38] LABS: POSITIVE COUNT NO; POSITIVE DIFFERENTIAL NO; POSITIVE MORPHOLOGY NO
[2019-01-27 13:54] LABS: AST(SGOT) 19 U/L (15-37); Alanine Aminotransfer ALT/SGPT 22 U/L (13-56); Albumin, Serum 3.7 g/dL (3.2-5.0); BUN 10 mg/dL (7-18); CRP < 2.90 mg/L (0.0-3.0); Calcium,Total 8.9 mg/dL (8.5-10.1); Creatinine, Serum 0.73 mg/dL (0.55-1.02); EST Glomerular Filtration Rate 85 mL/min (>60); Est Glom Filt Rate - Afr Amer 103 mL/min (>60)
[2019-01-27 18:28] LABS: Erythrocyte Sedimentation Rate 1 mm/hr (0-30)
== END | disposition home or self-care (01) ==
LOC: MTLAB 12:00
PROVIDERS: Internal Medicine Rheumatology; Family Provider Internal Medicine Infectious Disease; PCP Internal Medicine Infectious Disease; Referring Provider Psychiatry & Neurology Neurology; Visit Provider Psychiatry & Neurology Neurology
DX: M05.79 Rheumatoid arthritis with rheumatoid factor of multiple sites without organ or systems involvement (principal); G35 Multiple sclerosis
CPT/HCPCS: 36415; 82040; 82306; 82310; 82565; 84450; 84460; 84520; 85025; 85652; 86140

== ENCOUNTER → 2019-04-15 14:08 | Outpatient (CLI) | payer OTHER, SELFPAY ==
[2019-04-21 16:23] LABS: HPV Reflexed? NOT INDICATED
== END ==
PROVIDERS: Visit Provider Obstetrics & Gynecology
DX: Z12.4 Encounter for screening for malignant neoplasm of cervix (principal)
CPT/HCPCS: 87624; 88175; G0145

== ENCOUNTER → 2019-04-27 16:23 | Outpatient (CLI) | payer OTHER, SELFPAY ==
[2019-04-27 18:12] LABS: Hematocrit 45.6 % (37-47); Hemoglobin 14.2 g/dL (12.0-15.0); Mean Corp Hgb Conc 31.1 g/dL (32-36); Mean Corpuscular Volume 96.4 fL (81-99); Mean Platelet Vol. 10.7 fl (6.2-12.0); Platelet Count 192 K/mm3 (150-450); RBC Distribution Width SD 43.2 fl (35.1-43.9); Red Blood Count 4.73 M/mm3 (4.2-5.4); White Blood Count 4.9 K/mm3 (4.4-11.0)
[2019-04-27 18:22] LABS: Erythrocyte Sedimentation Rate 1 mm/hr (0-30)
[2019-04-27 18:29] LABS: ALB/GLOB Ratio 1.2 RATIO (0.9-2.4); AST(SGOT) 19 U/L (15-37); Alanine Aminotransfer ALT/SGPT 21 U/L (13-56); Alkaline Phosphatase 75 U/L (45-117); Anion Gap 9 (5-15); BUN 10 mg/dL (7-18); BUN/Creat Ratio 13.5 RATIO (10-20); CRP < 2.90 mg/L (0.0-3.0); Calcium,Total 8.7 mg/dL (8.5-10.1); Chloride 102 mmol/L (98-107); Creatinine, Serum 0.74 mg/dL (0.55-1.02); EST Glomerular Filtration Rate 84 mL/min (>60); Est Glom Filt Rate - Afr Amer 102 mL/min (>60); Globulin 3.2 g/dL (2.2-4.2); Glucose 88 mg/dL (74-106); Potassium 4.1 mmol/L (3.5-5.1); Protein, Total 7.2 g/dL (6.4-8.2); Rheumatoid Factor < 10.0 IU/mL (<15); Sodium Level 142 mmol/L (136-145); Uric Acid 2.7 mg/dL (2.6-6.0)
[2019-04-28 10:30] LABS: Hepatitis B Surface Antibody Non-Reactive; Hepatitis B Surface Antigen Non-Reactive (Nonreactive); Hepatitis C Antibody Non-Reactive (Nonreactive); Vitamin D,25 Hydroxy 69.3 ng/mL (29.95-100.01)
[2019-04-28 15:57] LABS: Absolute Lymphocyte Count 0.58 X10^3/uL (0.83-4.51); Basophil# 0.04 X10^3/uL; Basophil% 0.8 % (0-1); Eosinophil# 0.07 X10^3/uL; Eosinophils% 1.4 % (0-5); Lymphocyte # 0.58 X10^3/ul (4.0); Lymphocyte % 11.2 % (19-41); Monocyte# 0.42 X10^3/uL; Monocyte% 8.1 % (0-10); Neutrophil # 4.04 X10^3/uL (2.7-7.7); Neutrophil % 78.3 % (47-70)
[2019-04-30 03:06] LABS: Hepatitis B Core Ab Total Negative (Negative)
[2019-04-30 12:42] LABS: ANTINUCLEAR ANTIBODIES DIRECT Positive (Negative)
[2019-04-30 13:05] LABS: CCP IgG Antibodies 7 units (0-19); Hepatitis B Core AB IgM Negative (Negative)
== END ==
PROVIDERS: Family Provider Internal Medicine Infectious Disease; PCP Internal Medicine Infectious Disease; Referring Provider Internal Medicine Rheumatology; Visit Provider Internal Medicine Rheumatology
DX: M81.0 Age-related osteoporosis without current pathological fracture (principal); M05.79 Rheumatoid arthritis with rheumatoid factor of multiple sites without organ or systems involvement; G35 Multiple sclerosis; G43.119 Migraine with aura, intractable, without status migrainosus; G47.00 Insomnia, unspecified
CPT/HCPCS: 36415; 80053; 82306; 84550; 85025; 85027; 85652; 86038; 86140; 86200; 86431; 86704; 86705; 86706; 86803; 87340

== ENCOUNTER → 2019-05-14 14:42 | Outpatient (CLI) | payer OTHER, SELFPAY ==
--- NOTE | 2019-05-14 14:45 | BI_ITS ---
MAMMOGRAPHY - BILATERAL SCREENING REASON FOR EXAM: Female, 64 years old. Routine annual screening examination. PERTINENT HISTORY: Sister with breast cancer. TECHNIQUE: Digital bilateral breast juan (3D mammographic acquisition) in the CC and MLO projections. 2-D mediolateral oblique (MLO) and craniocaudad (CC) views of both breasts were obtained. CAD: Full Field Digital Mammography with Computer Added Detection was performed. COMPARISON: Comparison is made with prior study dated May 12, 2018 and June 22, 2015. FINDINGS: Breast Composition: There are scattered areas of fibroglandular density. There are no dominant masses or suspicious calcifications. No other significant abnormalities are identified. There has been no significant change since the prior study. BI/SCREEN MAMM (CAD) W/JUAN BILAT IMPRESSION: Stable bilateral screening mammogram. Yearly follow-up mammogram recommended. (A) ASSESSMENT CATEGORY: BIRADS Category 1: Negative. A letter regarding these results will be sent to the patient by the facility within 30 days. Approximately 10% of breast cancers are not detected by mammography. A normal mammogram should not delay biopsy of a clinically suspicious abnormality. [id number] Electronically Signed: Nikolas Masters, at 15:42 EDT , Service support ,
== END ==
PROVIDERS: Family Provider Internal Medicine Infectious Disease; PCP Internal Medicine Infectious Disease; Referring Provider Obstetrics & Gynecology; Visit Provider Obstetrics & Gynecology
DX: Z12.31 Encounter for screening mammogram for malignant neoplasm of breast (principal)
CPT/HCPCS: 77063; 77067

== ENCOUNTER → 2019-07-14 12:27 | Outpatient (CLI) | payer OTHER, SELFPAY ==
[2019-07-14 09:09] VITALS: BMI 18.3
== END ==
PROVIDERS: Family Provider Internal Medicine Infectious Disease; PCP Internal Medicine Infectious Disease; Referring Provider Physician Assistant Surgical; Visit Provider Physician Assistant Surgical
DX: J02.9 Acute pharyngitis, unspecified (principal)
CPT/HCPCS: 87070

== ENCOUNTER → 2019-08-04 10:40 | Outpatient (CLI) | payer OTHER, SELFPAY ==
[2019-07-14 09:09] VITALS: BMI 18.3
[2019-08-04 12:32] LABS: ALB/GLOB Ratio 1.1 RATIO (0.9-2.4); AST(SGOT) 19 U/L (15-37); Alanine Aminotransfer ALT/SGPT 28 U/L (13-56); Albumin, Serum 3.5 g/dL (3.2-5.0); Alkaline Phosphatase 68 U/L (45-117); Anion Gap 3 (5-15); BUN 10 mg/dL (7-18); BUN/Creat Ratio 14.1 RATIO (10-20); CRP < 2.90 mg/L (0.0-3.0); Calcium,Total 8.7 mg/dL (8.5-10.1); Chloride 99 mmol/L (98-107); Creatinine, Serum 0.71 mg/dL (0.55-1.02); EST Glomerular Filtration Rate 88 mL/min (>60); Est Glom Filt Rate - Afr Amer 107 mL/min (>60); Globulin 3.3 g/dL (2.2-4.2); Glucose 88 mg/dL (74-106); Potassium 3.9 mmol/L (3.5-5.1); Protein, Total 6.8 g/dL (6.4-8.2); Sodium Level 133 mmol/L (136-145)
[2019-08-04 13:51] LABS: Erythrocyte Sedimentation Rate 2 mm/hr (0-30)
[2019-08-04 13:52] LABS: Absolute Lymphocyte Count 0.64 X10^3/uL (0.83-4.51); Absolute Neutrophil Count 4.8 X10^3/uL (2.0-7.7); Basophil# 0.03 X10^3/uL; Basophil% 0.5 % (0-1); Eosinophil# 0.07 X10^3/uL; Eosinophils% 1.2 % (0-5); Hematocrit 38.9 % (37-47); Hemoglobin 12.7 g/dL (12.0-15.0); Lymphocyte # 0.64 X10^3/ul (4.0); Lymphocyte % 10.6 % (19-41); Mean Corp Hgb Conc 32.6 g/dL (32-36); Mean Corpuscular Hgb 30.7 pg (27.0-32.0); Mean Platelet Vol. 10.5 fl (6.2-12.0); Monocyte# 0.44 X10^3/uL; Monocyte% 7.3 % (0-10); NRBC Flagged by Analyzer 0 % (0-5); Neutrophil # 4.83 X10^3/uL (2.7-7.7); Neutrophil % 80.2 % (47-70); Platelet Count 192 K/mm3 (150-450); RBC Distribution Width CV 12.1 % (11.6-14.6); Red Blood Count 4.14 M/mm3 (4.2-5.4)
== END ==
PROVIDERS: Family Provider Internal Medicine Infectious Disease; PCP Internal Medicine Infectious Disease; Referring Provider Internal Medicine Rheumatology; Visit Provider Internal Medicine Rheumatology
DX: G35 Multiple sclerosis (principal)
CPT/HCPCS: 36415; 80053; 82306; 85025; 85652; 86140

== ENCOUNTER → 2019-11-16 10:30 | Outpatient (CLI) | payer OTHER, SELFPAY ==
[2019-07-14 09:09] VITALS: BMI 18.3
[2019-11-16 12:15] LABS: Erythrocyte Sedimentation Rate 3 mm/hr (0-30)
[2019-11-16 12:18] LABS: Absolute Lymphocyte Count 0.67 X10^3/uL (0.83-4.51); Absolute Neutrophil Count 3.5 X10^3/uL (2.0-7.7); Basophil# 0.05 X10^3/uL; Eosinophil# 0.21 X10^3/uL; Eosinophils% 4.2 % (0-5); Hematocrit 43.5 % (37-47); Lymphocyte # 0.67 X10^3/ul (4.0); Lymphocyte % 13.5 % (19-41); Mean Corp Hgb Conc 32.2 g/dL (32-36); Mean Corpuscular Hgb 30.4 pg (27.0-32.0); Mean Corpuscular Volume 94.6 fL (81-99); Mean Platelet Vol. 10.8 fl (6.2-12.0); Monocyte# 0.58 X10^3/uL; Monocyte% 11.6 % (0-10); NRBC Flagged by Analyzer 0 % (0-5); Neutrophil # 3.46 X10^3/uL (2.7-7.7); Neutrophil % 69.5 % (47-70); Platelet Count 218 K/mm3 (150-450); RBC Distribution Width SD 41.8 fl (35.1-43.9)
[2019-11-16 12:21] LABS: Vitamin D,25 Hydroxy 67.4 ng/mL
[2019-11-16 12:26] LABS: ALB/GLOB Ratio 1.2 RATIO (0.9-2.4); AST(SGOT) 17 U/L (15-37); Alanine Aminotransfer ALT/SGPT 19 U/L (13-56); Albumin, Serum 3.8 g/dL (3.2-5.0); Alkaline Phosphatase 74 U/L (45-117); Anion Gap 6 (5-15); BUN 11 mg/dL (7-18); BUN/Creat Ratio 14.2 RATIO (10-20); CRP, High Sensitivity Cardiac 1.01 mg/L; Chloride 101 mmol/L (98-107); Creatinine, Serum 0.77 mg/dL (0.55-1.02); EST Glomerular Filtration Rate 80 mL/min (>60); Est Glom Filt Rate - Afr Amer 97 mL/min (>60); Globulin 3.3 g/dL (2.2-4.2); Glucose 89 mg/dL (74-106); Potassium 3.8 mmol/L (3.5-5.1); Protein, Total 7.1 g/dL (6.4-8.2); Sodium Level 136 mmol/L (136-145)
== END ==
PROVIDERS: PCP Internal Medicine Infectious Disease; Referring Provider Psychiatry & Neurology Neurology; Visit Provider Psychiatry & Neurology Neurology
DX: G35 Multiple sclerosis (principal); M81.0 Age-related osteoporosis without current pathological fracture
CPT/HCPCS: 80053; 82306; 85025; 85652; 86141

== ENCOUNTER → 2020-02-01 16:00 | Outpatient (CLI) | payer OTHER, SELFPAY ==
[2019-07-14 09:09] VITALS: BMI 18.3
[2020-02-01 18:59] LABS: Vitamin D,25 Hydroxy 89.4 ng/mL
[2020-02-01 19:01] LABS: Erythrocyte Sedimentation Rate 2 mm/hr (0-30)
[2020-02-01 19:02] LABS: ALB/GLOB Ratio 1.2 RATIO (0.9-2.4); AST(SGOT) 20 U/L (15-37); Alanine Aminotransfer ALT/SGPT 32 U/L (13-56); Albumin, Serum 3.9 g/dL (3.2-5.0); Alkaline Phosphatase 77 U/L (45-117); Anion Gap 5 (5-15); BUN 11 mg/dL (7-18); BUN/Creat Ratio 15.6 RATIO (10-20); CRP < 2.90 mg/L (0.0-3.0); Calcium,Total 8.7 mg/dL (8.5-10.1); Chloride 100 mmol/L (98-107); EST Glomerular Filtration Rate 89 mL/min (>60); Est Glom Filt Rate - Afr Amer 108 mL/min (>60); Globulin 3.3 g/dL (2.2-4.2); Glucose 72 mg/dL (74-106); Potassium 3.9 mmol/L (3.5-5.1); Protein, Total 7.2 g/dL (6.4-8.2); Sodium Level 136 mmol/L (136-145)
[2020-02-01 19:04] LABS: Absolute Lymphocyte Count 0.53 X10^3/uL (0.83-4.51); Absolute Neutrophil Count 3.5 X10^3/uL (2.0-7.7); Basophil# 0.04 X10^3/uL; Basophil% 0.9 % (0-1); Eosinophil# 0.04 X10^3/uL; Eosinophils% 0.9 % (0-5); Hematocrit 42.2 % (37-47); Hemoglobin 13.6 g/dL (12.0-15.0); Lymphocyte # 0.53 X10^3/ul (4.0); Lymphocyte % 11.4 % (19-41); Mean Corp Hgb Conc 32.2 g/dL (32-36); Mean Corpuscular Hgb 31.2 pg (27.0-32.0); Mean Corpuscular Volume 96.8 fL (81-99); Mean Platelet Vol. 10.8 fl (6.2-12.0); Monocyte% 10.8 % (0-10); NRBC Flagged by Analyzer 0 % (0-5); Neutrophil # 3.52 X10^3/uL (2.7-7.7); Neutrophil % 75.8 % (47-70); POSITIVE DIFFERENTIAL YES; Platelet Count 204 K/mm3 (150-450); RBC Distribution Width CV 12.3 % (11.6-14.6); RBC Distribution Width SD 43.7 fl (35.1-43.9); Red Blood Count 4.36 M/mm3 (4.2-5.4); White Blood Count 4.6 K/mm3 (4.4-11.0)
[2020-02-01 19:06] LABS: Differential Indicated SCAN CRITERIA MET
[2020-02-01 21:20] LABS: Anisocytosis RARE; Macrocytosis RARE; Platelet Estimate ADEQUATE (ADEQ)
== END ==
PROVIDERS: PCP Internal Medicine Infectious Disease; Referring Provider Psychiatry & Neurology Neurology; Visit Provider Psychiatry & Neurology Neurology
DX: G35 Multiple sclerosis (principal); M81.0 Age-related osteoporosis without current pathological fracture
CPT/HCPCS: 36415; 80053; 82306; 85025; 85652; 86140

== ENCOUNTER → 2020-05-03 15:27 | Outpatient (CLI) | payer OTHER, SELFPAY ==
[2019-07-14 09:09] VITALS: BMI 18.3
[2020-05-03 17:43] LABS: Absolute Lymphocyte Count 0.57 X10^3/uL (0.83-4.51); Absolute Neutrophil Count 3.4 X10^3/uL (2.0-7.7); Basophil# 0.04 X10^3/uL; Basophil% 0.9 % (0-1); Eosinophil# 0.11 X10^3/uL; Eosinophils% 2.4 % (0-5); Hematocrit 42.2 % (37-47); Hemoglobin 13.5 g/dL (12.0-15.0); Lymphocyte # 0.57 X10^3/ul (4.0); Lymphocyte % 12.4 % (19-41); Mean Corpuscular Hgb 30.9 pg (27.0-32.0); Mean Corpuscular Volume 96.6 fL (81-99); Mean Platelet Vol. 11.1 fl (6.2-12.0); Monocyte% 10.9 % (0-10); NRBC Flagged by Analyzer 0 % (0-5); Neutrophil # 3.37 X10^3/uL (2.7-7.7); Neutrophil % 73.2 % (47-70); POSITIVE DIFFERENTIAL YES; Platelet Count 195 K/mm3 (150-450); RBC Distribution Width CV 12.1 % (11.6-14.6); RBC Distribution Width SD 43.7 fl (35.1-43.9); Red Blood Count 4.37 M/mm3 (4.2-5.4); White Blood Count 4.6 K/mm3 (4.4-11.0)
[2020-05-03 18:00] LABS: Erythrocyte Sedimentation Rate 6 mm/hr (0-30)
[2020-05-03 18:01] LABS: Differential Indicated SCAN CRITERIA MET
[2020-05-03 18:10] LABS: Vitamin D,25 Hydroxy 46.5 ng/mL
[2020-05-03 18:34] LABS: Anisocytosis RARE; Macrocytosis RARE; Platelet Estimate ADEQUATE (ADEQ); Red Cell Morphology N CHROM NORMAL (NORM C&C)
[2020-05-03 19:03] LABS: AST(SGOT) 16 U/L (15-37); Alanine Aminotransfer ALT/SGPT 22 U/L (13-56); Albumin, Serum 3.8 g/dL (3.2-5.0); BUN 8 mg/dL (7-18); CRP < 2.90 mg/L (0.0-3.0); Calcium,Total 8.9 mg/dL (8.5-10.1); EST Glomerular Filtration Rate 89 mL/min (>60); Est Glom Filt Rate - Afr Amer 108 mL/min (>60)
== END ==
PROVIDERS: PCP Internal Medicine Infectious Disease; Referring Provider Internal Medicine Rheumatology; Visit Provider Internal Medicine Rheumatology
DX: M81.0 Age-related osteoporosis without current pathological fracture (principal)
CPT/HCPCS: 82040; 82306; 82310; 82565; 84450; 84460; 84520; 85025; 85652; 86140

== ENCOUNTER → 2020-05-18 12:53 | Outpatient (CLI) | payer OTHER, SELFPAY ==
[2019-07-14 09:09] VITALS: BMI 18.3
--- NOTE | 2020-05-18 12:55 | BI_ITS ---
MAMMOGRAPHY - BILATERAL SCREENING REASON FOR EXAM: Female, 65 years old. Routine annual screening examination. PERTINENT HISTORY: Sister with breast cancer. TECHNIQUE: Digital bilateral breast juan (3D mammographic acquisition) in the CC and MLO projections. 2-D mediolateral oblique (MLO) and craniocaudad (CC) views of both breasts were obtained. CAD: Full Field Digital Mammography with Computer Added Detection was performed. COMPARISON: Comparison is made with prior study dated 05/14/2019 and 05/12/2018. FINDINGS: Breast Composition: There are scattered areas of fibroglandular density. There are no dominant masses or suspicious calcifications. No other significant abnormalities are identified. There has been no significant change since the prior study. BI/SCREEN MAMM (CAD) W/JUAN BILAT IMPRESSION: Stable bilateral screening mammogram. Yearly follow-up mammogram recommended. (A) ASSESSMENT CATEGORY: BIRADS Category 1: Negative. A letter regarding these results will be sent to the patient by the facility within 30 days. Approximately 10% of breast cancers are not detected by mammography. A normal mammogram should not delay biopsy of a clinically suspicious abnormality. [id number] Electronically Signed: Nikolas Masters, at 14:11 EDT , Service support ,
== END ==
PROVIDERS: PCP Internal Medicine Infectious Disease; Referring Provider Obstetrics & Gynecology; Visit Provider Obstetrics & Gynecology
DX: Z12.31 Encounter for screening mammogram for malignant neoplasm of breast (principal)
CPT/HCPCS: 77063; 77067

== ENCOUNTER → 2020-08-03 07:41 | Outpatient (CLI) | payer OTHER, SELFPAY ==
[2019-07-14 09:09] VITALS: BMI 18.3
[2020-08-03 10:20] LABS: Absolute Lymphocyte Count 0.49 X10^3/uL (0.83-4.51); Absolute Neutrophil Count 3.3 X10^3/uL (2.0-7.7); Basophil# 0.03 X10^3/uL; Basophil% 0.7 % (0-1); Eosinophil# 0.04 X10^3/uL; Eosinophils% 0.9 % (0-5); Hematocrit 42.1 % (37-47); Hemoglobin 13.6 g/dL (12.0-15.0); Lymphocyte # 0.49 X10^3/ul (4.0); Lymphocyte % 11.3 % (19-41); Mean Corp Hgb Conc 32.3 g/dL (32-36); Mean Corpuscular Hgb 30.8 pg (27.0-32.0); Mean Corpuscular Volume 95.5 fL (81-99); Mean Platelet Vol. 10.9 fl (6.2-12.0); Monocyte% 11.5 % (0-10); NRBC Flagged by Analyzer 0 % (0-5); Neutrophil # 3.28 X10^3/uL (2.7-7.7); Neutrophil % 75.4 % (47-70); POSITIVE DIFFERENTIAL YES; Platelet Count 205 K/mm3 (150-450); RBC Distribution Width CV 12.1 % (11.6-14.6); RBC Distribution Width SD 42.5 fl (35.1-43.9); Red Blood Count 4.41 M/mm3 (4.2-5.4); White Blood Count 4.4 K/mm3 (4.4-11.0)
[2020-08-03 10:22] LABS: Differential Indicated SCAN CRITERIA MET
[2020-08-03 10:41] LABS: Differential Comment SCANNED; Erythrocyte Sedimentation Rate 3 mm/hr (0-30)
[2020-08-03 10:46] LABS: ALB/GLOB Ratio 1.2 RATIO (0.9-2.4); AST(SGOT) 22 U/L (15-37); Alanine Aminotransfer ALT/SGPT 22 U/L (13-56); Albumin, Serum 3.8 g/dL (3.2-5.0); Alkaline Phosphatase 76 U/L (45-117); Anion Gap 5 (5-15); BUN 10 mg/dL (7-18); BUN/Creat Ratio 14.7 RATIO (10-20); CRP < 2.90 mg/L (0.0-3.0); Calcium,Total 8.6 mg/dL (8.5-10.1); Chloride 101 mmol/L (98-107); Creatinine, Serum 0.68 mg/dL (0.55-1.02); EST Glomerular Filtration Rate 93 mL/min (>60); Est Glom Filt Rate - Afr Amer 112 mL/min (>60); Globulin 3.1 g/dL (2.2-4.2); Glucose 77 mg/dL (74-106); Potassium 3.6 mmol/L (3.5-5.1); Protein, Total 6.9 g/dL (6.4-8.2); Sodium Level 135 mmol/L (136-145)
== END ==
PROVIDERS: PCP Internal Medicine Infectious Disease; Referring Provider Internal Medicine Infectious Disease; Visit Provider Internal Medicine Infectious Disease
DX: M81.0 Age-related osteoporosis without current pathological fracture (principal); G35 Multiple sclerosis
CPT/HCPCS: 36415; 80053; 85025; 85652; 86140

== ENCOUNTER → 2020-09-19 08:41 | Outpatient (CLI) | payer OTHER, SELFPAY ==
[2019-07-14 09:09] VITALS: BMI 18.3
--- NOTE | 2020-09-19 08:43 | RAD_ITS ---
STUDY: X-RAY - BILATERAL RIBS WITH CHEST REASON FOR EXAM: Female, 65 years old. b/l rib pain, seems to be mid to lower back area-no injury x 4 days TECHNIQUE - RIBS: 4 view(s) of the ribs. TECHNIQUE - CHEST: Single PA view of the chest. COMPARISON: 08/26/2015. FINDINGS: Cardiac silhouette unremarkable. Pulmonary vascularity unremarkable. Aorta unremarkable. No focal patchy airspace opacities. No pleural effusions. COPD/emphysema. Upper abdomen unremarkable. Osseous structures intact. No pneumothorax. Chronic/healed right rib fractures. RAD/Ribs Attila Min 4V w/PA Chest IMPRESSION: No acute cardiopulmonary findings COPD/emphysema Chronic/healed right rib fractures Electronically Signed: Jarvis Santo DO at 9:16 EST Tel , Service support ,
== END ==
PROVIDERS: PCP Internal Medicine Infectious Disease; Referring Provider Nurse Practitioner Family; Visit Provider Nurse Practitioner Family
DX: R07.81 Pleurodynia (principal)
CPT/HCPCS: 71111

== ENCOUNTER 2020-09-27 16:22 | Outpatient (RCR) | payer OTHER, SELFPAY ==
[2019-07-14 09:09] VITALS: BMI 18.3
[2020-09-27] MEDS: COVID-19 VACC, MRNA(PFIZER)/PF 30 MCG/0.3 ML SYRINGE IM (14:10)
[2020-10-18] MEDS: COVID-19 VACC, MRNA(PFIZER)/PF 30 MCG/0.3 ML SYRINGE IM (14:00)
== END 2020-12-27 23:59 ==
LOC: IMMUN 16:22
PROVIDERS: PCP Internal Medicine Infectious Disease; Visit Provider Family Medicine
DX: Z23 Encounter for immunization (principal)
CPT/HCPCS: 0001A; 0002A; 91300

== ENCOUNTER → 2020-11-23 07:40 | Outpatient (CLI) | payer OTHER, SELFPAY ==
[2019-07-14 09:09] VITALS: BMI 18.3
[2020-11-23 10:35] LABS: Erythrocyte Sedimentation Rate 3 mm/hr (0-30)
[2020-11-23 10:37] LABS: Absolute Lymphocyte Count 0.67 X10^3/uL (0.83-4.51); Basophil# 0.03 X10^3/uL; Basophil% 0.7 % (0-1); Eosinophil# 0.06 X10^3/uL; Eosinophils% 1.4 % (0-5); Hematocrit 43.8 % (37-47); Lymphocyte # 0.67 X10^3/ul (0.83-4.51); Lymphocyte % 15.9 % (19-41); Mean Corpuscular Hgb 30.7 pg (27.0-32.0); Mean Corpuscular Volume 96.1 fL (81-99); Mean Platelet Vol. 11.2 fl (6.2-12.0); Monocyte# 0.47 X10^3/uL; Monocyte% 11.2 % (0-10); NRBC Flagged by Analyzer 0 % (0-5); Neutrophil # 2.97 X10^3/uL (2.7-7.7); Neutrophil % 70.6 % (47-70); Platelet Count 187 K/mm3 (150-450); RBC Distribution Width CV 12.1 % (11.6-14.6); RBC Distribution Width SD 42.9 fl (35.1-43.9); Red Blood Count 4.56 M/mm3 (4.2-5.4); White Blood Count 4.2 K/mm3 (4.4-11.0)
[2020-11-23 10:50] LABS: Cholesterol 279 mg/dL (200); High Density Lipoprotein 87 mg/dL; Triglycerides 152 mg/dL; Very Low Density Lipoprotein 30 mg/dL (5-40)
[2020-11-23 11:17] LABS: ALB/GLOB Ratio 1.1 RATIO (0.9-2.4); AST(SGOT) 22 U/L (15-37); Alanine Aminotransfer ALT/SGPT 23 U/L (13-56); Albumin, Serum 3.8 g/dL (3.2-5.0); Alkaline Phosphatase 87 U/L (45-117); Anion Gap 4 (5-15); BUN 12 mg/dL (7-18); BUN/Creat Ratio 17.8 RATIO (10-20); CRP < 2.90 mg/L (0.0-3.0); Calcium,Total 8.7 mg/dL (8.5-10.1); Chloride 102 mmol/L (98-107); Creatinine, Serum 0.68 mg/dL (0.55-1.02); EST Glomerular Filtration Rate 93 mL/min (>60); Est Glom Filt Rate - Afr Amer 113 mL/min (>60); Globulin 3.4 g/dL (2.2-4.2); Glucose 80 mg/dL (74-106); Potassium 3.8 mmol/L (3.5-5.1); Protein, Total 7.2 g/dL (6.4-8.2); Sodium Level 137 mmol/L (136-145)
== END ==
PROVIDERS: PCP Internal Medicine Infectious Disease; Referring Provider Internal Medicine Rheumatology; Visit Provider Internal Medicine Rheumatology
DX: M81.0 Age-related osteoporosis without current pathological fracture (principal); G35 Multiple sclerosis
CPT/HCPCS: 36415; 80053; 80061; 82306; 85025; 85652; 86140

== ENCOUNTER → 2021-02-24 13:38 | Outpatient (CLI) | payer OTHER, SELFPAY ==
[2019-07-14 09:09] VITALS: BMI 18.3
[2021-02-24 15:35] LABS: Absolute Lymphocyte Count 0.54 X10^3/uL (0.83-4.51); Absolute Neutrophil Count 3.5 X10^3/uL (2.0-7.7); Basophil# 0.03 X10^3/uL; Basophil% 0.7 % (0-1); Eosinophil# 0.03 X10^3/uL; Eosinophils% 0.7 % (0-5); Hematocrit 41.2 % (37-47); Hemoglobin 13.5 g/dL (12.0-15.0); Lymphocyte # 0.54 X10^3/ul (0.83-4.51); Lymphocyte % 12.2 % (19-41); Mean Corp Hgb Conc 32.8 g/dL (32-36); Mean Corpuscular Volume 94.7 fL (81-99); Monocyte# 0.35 X10^3/uL; Monocyte% 7.9 % (0-10); NRBC Flagged by Analyzer 0 % (0-5); Neutrophil # 3.46 X10^3/uL (2.7-7.7); Neutrophil % 78.3 % (47-70); POSITIVE DIFFERENTIAL YES; Platelet Count 195 K/mm3 (150-450); RBC Distribution Width SD 42.2 fl (35.1-43.9); Red Blood Count 4.35 M/mm3 (4.2-5.4); White Blood Count 4.4 K/mm3 (4.4-11.0)
[2021-02-24 15:46] LABS: ALB/GLOB Ratio 1.1 RATIO (0.9-2.4); AST(SGOT) 31 U/L (15-37); Alanine Aminotransfer ALT/SGPT 43 U/L (13-56); Albumin, Serum 3.7 g/dL (3.2-5.0); Alkaline Phosphatase 79 U/L (45-117); Anion Gap 7 (5-15); BUN 9 mg/dL (7-18); BUN/Creat Ratio 13.3 RATIO (10-20); Calcium,Total 9.1 mg/dL (8.5-10.1); Chloride 101 mmol/L (98-107); Creatinine, Serum 0.68 mg/dL (0.55-1.02); EST Glomerular Filtration Rate 93 mL/min (>60); Est Glom Filt Rate - Afr Amer 112 mL/min (>60); Globulin 3.4 g/dL (2.2-4.2); Glucose 107 mg/dL (74-106); Potassium 4.1 mmol/L (3.5-5.1); Protein, Total 7.1 g/dL (6.4-8.2); Sodium Level 137 mmol/L (136-145)
[2021-02-24 15:50] LABS: Differential Indicated SCAN CRITERIA MET
[2021-02-24 16:14] LABS: Differential Comment SCANNED
[2021-02-27 14:32] LABS: Pathologist Review Reviewed
== END ==
PROVIDERS: Referring Provider Psychiatry & Neurology Neurology; Visit Provider Psychiatry & Neurology Neurology
DX: G35 Multiple sclerosis (principal)
CPT/HCPCS: 36415; 80053; 85025

== ENCOUNTER → 2021-03-09 08:18 | Outpatient (CLI) | payer OTHER, SELFPAY ==
[2019-07-14 09:09] VITALS: BMI 18.3
--- NOTE | 2021-03-09 08:25 | BD_ITS ---
STUDY: DUAL ENERGY X-RAY ABSORPTIOMETRY / DXA REASON FOR EXAM: Female, 65 years old. M810. The patient is postmenopausal. TECHNIQUE: Bone Mineral Density (BMD) measurements of lumbar spine and bilateral hips were obtained. COMPARISON: Comparison is made with prior study dated 02/23/2016. FINDINGS: Lumbar Spine (L1-L4): g/cm2 (0.533) / T-score (-4.4) / Z-score (-2.7) Findings are suggestive of osteoporosis with a high fracture risk. Left Femur Total: g/cm2 (0.647) / T-score (-2.4) / Z-score (-1.2) Left Femoral Neck: g/cm2 (0.457) / T-score (-3.5) / Z-score (-2.0) Right Femur Total: g/cm2 (0.687) / T-score (-2.1) / Z-score (-0.9) Right Femoral Neck: g/cm2 (0.496) / T-score (-3.2) / Z-score (-1.7) The T-Scores on the most recent prior examination were: Lumbar Spine (L1-L4): There has been worsening of bone density since the previous examination. Left Femur Total: which represents an improvement of 3.2%. Right Femur Total: which represents a worsening of 0.3%. BD/Dexa Bone Density Study IMPRESSION: The patient is considered osteoporotic as outlined below according to World Ramo Organization (WHO) criteria with a high fracture risk. There has been worsening of bone density since the previous examination. Reference Information: The T-score is the number of standard deviations above or below the standard which is normal for young adults at their peak bone mineral density. The World Health Organization (WHO) interprets the T-scores as follows: Above -1 Normal bone density Between -1 and -2.5 Osteopenia Equal to / or below -2.5 Osteoporosis As a practical clinical guideline, osteopenia may be graded as follows: Mild -1 through -1.5 Moderate -1.6 through -2.0 Severe -2.1 through -2.4 The Z-score is the number of standard deviations above or below age-matched controls. A Z-score of less than -1.5 would be considered abnormal. References: 1. NIH Osteoporosis and Related Bone Diseases www osteo.org 2. International Society for Clinical Densitometry www iscd.org 3. National Osteoporosis Foundation www nof.org Electronically Signed: Nikolas Masters MD at 15:08 EDT , Service support ,
== END ==
PROVIDERS: Referring Provider Internal Medicine Rheumatology; Visit Provider Internal Medicine Rheumatology
DX: M81.0 Age-related osteoporosis without current pathological fracture (principal)
CPT/HCPCS: 77080

== ENCOUNTER → 2021-06-02 12:30 | Outpatient (CLI) | payer MEDICARE, OTHER, SELFPAY ==
--- NOTE | 2021-06-02 12:33 | BI_ITS ---
MAMMOGRAPHY - BILATERAL SCREENING REASON FOR EXAM: Female, 66 years old. Routine annual screening examination. PERTINENT HISTORY: Sister with breast cancer. TECHNIQUE: Digital bilateral breast juan (3D mammographic acquisition) in the CC and MLO projections. 2-D mediolateral oblique (MLO) and craniocaudad (CC) views of both breasts were obtained. CAD: Full Field Digital Mammography with Computer Added Detection was performed. COMPARISON: Comparison is made with prior examination dated 05/18/2020 and 05/14/2019. FINDINGS: Breast Composition: There are scattered areas of fibroglandular density. There are no dominant masses or suspicious calcifications. No other significant abnormalities are identified. There has been no significant change since the prior study. BI/SCRN MAMM (CAD)W/JUAN BILAT IMPRESSION: Stable bilateral screening mammogram. Yearly follow-up mammogram recommended. (A) ASSESSMENT CATEGORY: BIRADS Category 1: Negative. A letter regarding these results will be sent to the patient by the facility within 30 days. Approximately 10% of breast cancers are not detected by mammography. A normal mammogram should not delay biopsy of a clinically suspicious abnormality. [id number] Electronically Signed: Nikolas Masters MD at 13:18 EST , Service support ,
== END ==
PROVIDERS: PCP Internal Medicine Infectious Disease; Referring Provider Student in an Organized Health Care Education/Training Program; Visit Provider Student in an Organized Health Care Education/Training Program
DX: Z12.31 Encounter for screening mammogram for malignant neoplasm of breast (principal)
CPT/HCPCS: 77063; 77067

== ENCOUNTER → 2021-06-21 10:13 | Outpatient (CLI) | payer MEDICARE, OTHER, SELFPAY ==
[2021-06-21 12:19] LABS: Hematocrit 43.3 % (37-47); Mean Corp Hgb Conc 32.3 g/dL (32-36); Mean Corpuscular Hgb 30.4 pg (27.0-32.0); Mean Corpuscular Volume 94.1 fL (81-99); Platelet Count 174 K/mm3 (150-450); RBC Distribution Width CV 12.7 % (11.6-14.6); White Blood Count 5.3 K/mm3 (4.4-11.0)
[2021-06-21 12:38] LABS: ALB/GLOB Ratio 0.9 RATIO (0.9-2.4); AST(SGOT) 30 U/L (15-37); Alanine Aminotransfer ALT/SGPT 27 U/L (13-56); Albumin, Serum 3.6 g/dL (3.2-5.0); Alkaline Phosphatase 91 U/L (45-117); Anion Gap 10 (5-15); BUN 11 mg/dL (7-18); BUN/Creat Ratio 16.8 RATIO (10-20); Calcium,Total 8.9 mg/dL (8.5-10.1); Chloride 96 mmol/L (98-107); Creatinine, Serum 0.65 mg/dL (0.55-1.02); EST Glomerular Filtration Rate 97 mL/min (>60); Est Glom Filt Rate - Afr Amer 117 mL/min (>60); Globulin 3.8 g/dL (2.2-4.2); Glucose 115 mg/dL (74-106); Potassium 3.4 mmol/L (3.5-5.1); Protein, Total 7.4 g/dL (6.4-8.2); Sodium Level 136 mmol/L (136-145)
== END ==
PROVIDERS: PCP Internal Medicine Infectious Disease; Referring Provider Internal Medicine Infectious Disease; Visit Provider Internal Medicine Infectious Disease
DX: G35 Multiple sclerosis (principal); M81.0 Age-related osteoporosis without current pathological fracture
CPT/HCPCS: 36415; 80053; 82652; 85027

== ENCOUNTER 2021-07-25 15:41 | Outpatient (CLI) | payer MEDICARE, OTHER, SELFPAY ==
[2021-07-31 09:32] LABS: HPV APTIMA, High Risk Negative (Negative)
== END 2021-07-25 23:59 | disposition short-term general hospital (02) ==
LOC: LABSPEC 15:42
PROVIDERS: PCP Internal Medicine Infectious Disease; Visit Provider Student in an Organized Health Care Education/Training Program
DX: Z12.4 Encounter for screening for malignant neoplasm of cervix (principal)
CPT/HCPCS: 87624; 88175; G0145

== ENCOUNTER 2021-08-12 16:19 | Outpatient (CLI) | payer MEDICARE, OTHER, SELFPAY ==
[2021-08-12] MEDS: 0.9% Saline Lock 10 ML Syringe IV (16:30)
[2021-08-12 16:37] VITALS: BP 132/66; PULSE 92; RESP 16; TEMP 36.4; O2SAT 100; BMI 19.5
[2021-08-12 17:05] VITALS: BP 113/65; PULSE 88; RESP 16; TEMP 36.8; O2SAT 98
[2021-08-12 17:57] VITALS: BP 119/71; PULSE 84; RESP 16; TEMP 36.9; O2SAT 97
== END 2021-08-12 23:59 | disposition home or self-care (01) ==
LOC: MS3OUT 16:23 → MS3 16:24
PROVIDERS: PCP Internal Medicine Infectious Disease; Referring Provider Nurse Practitioner Adult Health; Visit Provider Nurse Practitioner Adult Health
DX: Z23 Encounter for immunization (principal); U07.1 COVID-19
CPT/HCPCS: J7050; M0247; Q0245; A4216; Q0247

== ENCOUNTER 2021-08-25 08:35 | Emergency (ER) | payer MEDICARE, OTHER, SELFPAY ==
[2021-08-25 08:36] VITALS: BP 138/63; PULSE 106; RESP 14; TEMP 36.1; O2SAT 100; BMI 19.5
--- NOTE | 2021-08-25 09:24 | CT_ITS ---
STUDY: CT BRAIN WITHOUT CONTRAST REASON FOR EXAM: Female, 66 years old. Laceration to the left eyebrow following a fall. RADIATION DOSAGE (If Supplied By Facility): CTDIvol = ( 44.99 ) mGy, DLP = ( 779.24 ) mGycm TECHNIQUE: Transaxial CT imaging of the brain was performed without administration of intravenous contrast material. Individualized dose optimization techniques were used for this CT. COMPARISON: No relevant priors. FINDINGS: Normal soft tissue structures. Normal calvarium. There is mild cerebral atrophy with widening of the extra-axial spaces and ventricular dilatation. There are areas of decreased attenuation within the white matter tracts of the supratentorial brain, consistent with microvascular disease changes. Normal basal ganglia and thalami. Normal brainstem. Normal cerebellum. There is no intracranial hemorrhage. There are no findings of an acute ischemic infarction. Atherosclerotic calcification of the cavernous portions of the internal carotid arteries bilaterally. Normal visualized paranasal sinuses. CT/Brain/Head without Contrast IMPRESSION: Chronic involutional changes of the brain. Electronically Signed: Nikolas Masters MD at 10:12 EST ,
--- NOTE | 2021-08-25 09:24 | RAD_ITS ---
STUDY: X-RAY - PELVIS AND LEFT HIP REASON FOR EXAM: Female, 66 years old. Left-sided pain following a fall. TECHNIQUE: 3 views of the pelvis and hip. COMPARISON: None. FINDINGS: There is a non-specific bowel gas pattern. There are multiple calcified phleboliths. Normal bilateral iliac wings, sacroiliac joints and visualized sacrum. Normal bilateral superior and inferior pubic rami. Normal pubic symphysis. Normal bilateral ischial tuberosities. Normal visualized femoral head. Normal acetabulum. There is mild articular joint space narrowing of the hip. RAD/HIP, UNI W/ Pelvis 2-3 Views IMPRESSION: Mild joint space narrowing of both hip joints. No acute abnormality is seen. Electronically Signed: Nikolas Masters MD at 10:27 EST ,
--- NOTE | 2021-08-25 09:24 | RAD_ITS ---
STUDY: X-RAY CHEST REASON FOR EXAM: Female, 66 years old. Injury TECHNIQUE: PA and lateral views of the chest. COMPARISON: Comparison is made with prior examination dated 08/26/2015. FINDINGS: Hyperinflation. The lungs are clear. There is no demonstrated pleural abnormality. Normal size heart. Normal mediastinum and kevin. Normal visualized pulmonary arteries. Normal visualized aortic arch and descending thoracic aorta. There is demineralization of the osseous structures. Normal visualized ribs, clavicles, and shoulders. There is no demonstrated abnormality of the visualized soft tissue structures of the upper abdomen. RAD/Chest PA and Lateral IMPRESSION: Hyperinflation. The lungs are clear. Electronically Signed: Nikolas Masters MD at 10:26 [facility] ,
--- NOTE | 2021-08-25 09:56 | EDS_ITS ---
HPI History of Present Illness Chief Complaint: Fall Informant: patient and spouse/S.O. Narrative Narrative: 66-year-old female presents to the emergency department for evaluation of injuries sustained from a fall. Patient states that last night she got up due to GERD and took some Tums. She sat on their hearth and fell asleep. When she fell asleep she fell off the hearth striking her head and glasses on the ground and injuring left side of her body. She notes discomfort near the left axilla and left hip. She notes that her glasses broke resulting in a cut to the left eyebrow. No nausea vomiting. No no loss of consciousness. Patient has a history of multiple sclerosis. She is not on any blood thinners. [facility] Medical History History of arthritis Multiple sclerosis Seasonal allergic reaction Worsening headaches Home Medications alprazolam 0.5 mg PO BID PRN PRN 09/25/13 [History Last Taken Unknown] [id number]-[id number]-[id number] 1 cap PO BID PRN PRN 09/25/13 [History Last Taken Unknown] gabapentin 800 mg PO QHS 09/25/13 [History Last Taken Unknown] hydroxychloroquine 200 mg PO BIDCM 09/25/13 [History Last Taken Unknown] nitrofurantoin macrocrystal 100 mg PO PRN PRN 09/25/13 [History Last Taken Unknown] protriptyline 15 mg PO QHS 09/25/13 [History Last Taken Unknown] rizatriptan 10 mg PO .X1 PRN 09/25/13 [History Last Taken Unknown] dimethyl fumarate 240 mg capsule,delayed release 240 mg PO BID 07/14/19 [History Last Taken Unknown] ibandronate 3 mg/3 mL intravenous syringe 3 mg .ROUTE QMONTH 07/14/19 [History Last Taken Unknown] albuterol sulfate 90 mcg/actuation aerosol inhaler 1 inh INHALATION ONCE 09/18/20 [History Last Taken Unknown] prednisone 2.5 mg tablet 2.5 ea PO PRN PRN 09/18/20 [History Last Taken Unknown] zolpidem 12.5 mg tablet,extended release,multiphase 12.5 mg PO QHS tab 09/18/20 [History Last Taken Unknown] ergocalciferol (vitamin D2) [Ergo-D] 1,250 mcg PO QMONTH 08/25/21 [History Last Taken Unknown] omeprazole 20 mg PO DAILY 08/25/21 [History Last Taken Unknown] Allergy/AdvReac Type Severity Reaction Status Date / Time succinylcholine Allergy Unknown Verified 08/25/21 08:36 [From Anectine] clavulanic acid AdvReac Unknown Unknown Verified 08/25/21 08:36 [From Augmentin] amoxicillin AdvReac Unknown Verified 08/25/21 08:36 erythromycin base AdvReac Unknown Verified 08/25/21 08:36 Social History Smoking Status: Never smoker alcohol intake: never ROS ROS ED Constitutional Constitutional ED: Denies chills or weight loss Eyes Eyes: Denies change in vision or diplopia ENT ENT ED: Denies ear pain, rhinorrhea or sore throat Cardiovascular Cardiovascular: Reports other Details: Left axillary chest wall pain ; Denies chest pain, orthopnea, palpitations or racing heartbeat Respiratory/Chest Respiratory/Chest: Denies cough, dyspnea or orthopnea Gastrointestinal Gastrointestinal: Denies abdominal pain, diarrhea, nausea or vomiting Genitourinary Genitourinary ED: Denies dysuria, hematuria or urinary frequency Musculoskeletal Musculoskeletal: Reports other Details: Left hip pain ; Denies arthralgias or myalgias Integumentary Reports other Details: Left eyebrow laceration ; Denies abscess or rash Neurologic Neurologic: Denies headache(s) or weakness Psychiatric Psychiatric: Denies anxiety, depression, suicidal ideation or suicidal thoughts Endocrine Endocrinology: Denies polydipsia, polyphagia or polyuria Allergic/Immunologic Allergic/Immunologic ED: Denies mouth swelling, tongue swelling or urticaria EXAM Physical Exam Const Vital Signs: 08/25/21 08:36 08/25/21 08:48 Temperature 97 F L Temperature Source Temporal Pulse Rate 106 H Respiratory Rate 14 Respiratory Effort Normal Non-Labored Respiratory Depth Normal Respiratory Pattern Normal Blood Pressure 138/63 H Blood Pressure Mean 88 Pulse Ox 100 Oxygen Delivery Method Room Air Room Air Positive well nourished and well developed General Appearance ED: well developed HEENT Reports normocephalic, head/scalp atraumatic and moist mucous membranes HEENT Narrative: There are 2 superficial half centimeter lacerations to the lateral aspect of the left eyebrow. There is ecchymosis of the nose and of the left periorbital region. trauma Eyes PERRL and EOMs intact bilaterally Neck no lymphadenopathy, supple and no JVD Chest Wall Chest Narrative: Tender to palpation of the ribs in the left axilla. Resp normal respiratory effort and clear to auscultation bilaterally Cardio regular rate, regular rhythm and no murmurs GI normal to inspection, nondistended, normoactive bowel sounds and non-tender Palpation: soft Back/Spine no CVA tenderness and normal ROM Extremity Extremity Narrative: Left hip tenderness to palpation General Extremety ED: Negative for edema General Extremity: Negative for edema Neuro oriented x3 and CN's II-XII intact bilaterally Sensorium / Orientation: alert Motor Exam: strength 5/5 throughout Psych mental status grossly normal Mood & Affect: Negative for depressed or tearful Skin no rashes or lesions noted and no wounds MDM MDM MDM Narrative Medical decision making narrative: My interpretation of the plain films of the left hip is no acute fracture. My interpretation of the plain films of the chest is no acute fracture. CT the brain was negative. The laceration does not appear to require sutures. Local wound care. Patient return if worsening or concerns Radiography Diagnostic Testing: Clinical Impression(s) from Imaging Studies Brain CT 08/25/21 09:24 IMPRESSION: Chronic involutional changes of the brain. Electronically Signed: Nikolas Masters MD at 10:12 EST , Chest X-Ray 08/25/21 09:24 IMPRESSION: Hyperinflation. The lungs are clear. Electronically Signed: Nikolas Masters MD at 10:26 EST , Hip/Pelvis X-Ray 08/25/21 09:24 IMPRESSION: Mild joint space narrowing of both hip joints. No acute abnormality is seen. Electronically Signed: Nikolas Masters MD at 10:27 EST , Discharge Plan Triage Chief Complaint: Fall ED Provider: Xavier Detn Dx/Rx/DC Orders Clinical Impression: Facial laceration, Contusion of face, Contusion of hip, left, Chest wall contusion Instructions: ED Head Injury (Adult), ED Contusion, Rib Prescriptions: No Action ibandronate [Boniva] 3 mg/3 mL syringe 3 mg .Route QMONTH RF: 0 Tecfidera 240 mg capsule,delayed release(DR/EC) 240 mg PO BID RF: 0 albuterol sulfate [ProAir HFA] 90 mcg/actuation HFA aerosol inhaler 1 inh INHALATION ONCE RF: 0 prednisone 2.5 mg tablet 2.5 ea PO PRN PRN (Reason: arthritis) RF: 0 zolpidem 12.5 mg tablet,ext release multiphase 12.5 mg PO QHS RF: 0 rizatriptan 10 MG tablet 10 mg PO .X1 PRN RF: 0 btlccfzmsx-yfwcsmgoiwzwv-tppe 1 TABLET tablet 1 cap PO BID PRN PRN (Reason: Pain) RF: 0 protriptyline 10 MG tablet 15 mg PO QHS RF: 0 alprazolam 0.5 MG tablet 0.5 mg PO BID PRN PRN (Reason: Anxiety) RF: 0 gabapentin 800 MG tablet 800 mg PO QHS RF: 0 nitrofurantoin macrocrystal 100 MG capsule 100 mg PO PRN PRN (Reason: Bladder Spasm) RF: 0 hydroxychloroquine 200 MG tablet 200 mg PO BIDCM RF: 0 ergocalciferol (vitamin D2) [Ergo-D] 1,250 mcg (50,000 unit) Capsule 1,250 mcg PO QMONTH RF: 0 omeprazole 20 mg Tablet,Delayed Release (Dr/Ec) 20 mg PO DAILY RF: 0 Primary Care Provider: Elena Loo Referrals: Elena Loo MD [Primary Care Provider] - As Needed Disposition Disposition: Home, Self Care
== END 2021-08-25 10:36 | disposition home or self-care (01) ==
PROVIDERS: Emergency Provider Emergency Medicine; PCP Internal Medicine Infectious Disease; Visit Provider Emergency Medicine
DX: S01.81XA Laceration without foreign body of other part of head, initial encounter (principal); G35 Multiple sclerosis; S20.20XA Contusion of thorax, unspecified, initial encounter; S70.02XA Contusion of left hip, initial encounter; S00.33XA Contusion of nose, initial encounter; S00.12XA Contusion of left eyelid and periocular area, initial encounter; W17.89XA Other fall from one level to another, initial encounter; Y93.9 Activity, unspecified; Y92.9 Unspecified place or not applicable; Z79.899 Other long term (current) drug therapy
CPT/HCPCS: 70450; 71046; 73502; 99282

== ENCOUNTER 2021-09-13 09:40 | Outpatient (CLI) | payer MEDICARE, OTHER, SELFPAY ==
[2021-09-13 12:21] LABS: Erythrocyte Sedimentation Rate 13 mm/hr (0-30)
[2021-09-13 12:24] LABS: Absolute Lymphocyte Count 0.91 X10^3/uL (0.83-4.51); Absolute Neutrophil Count 2.8 X10^3/uL (2.0-7.7); Basophil# 0.05 X10^3/uL; Basophil% 1.1 % (0-1); Eosinophil# 0.11 X10^3/uL; Eosinophils% 2.4 % (0-5); Hematocrit 41.9 % (37-47); Hemoglobin 13.8 g/dL (12.0-15.0); Lymphocyte # 0.91 X10^3/ul (0.83-4.51); Lymphocyte % 20.1 % (19-41); Mean Corp Hgb Conc 32.9 g/dL (32-36); Mean Corpuscular Hgb 31.3 pg (27.0-32.0); Mean Platelet Vol. 11.4 fl (6.2-12.0); Monocyte# 0.62 X10^3/uL; Monocyte% 13.7 % (0-10); NRBC Flagged by Analyzer 0 % (0-5); Neutrophil # 2.82 X10^3/uL (2.7-7.7); Neutrophil % 62.5 % (47-70); Platelet Count 201 K/mm3 (150-450); RBC Distribution Width CV 12.6 % (11.6-14.6); RBC Distribution Width SD 44.1 fl (35.1-43.9); Red Blood Count 4.41 M/mm3 (4.2-5.4); White Blood Count 4.5 K/mm3 (4.4-11.0)
[2021-09-13 12:34] LABS: Vitamin D,25 Hydroxy 47.6 ng/mL
[2021-09-13 12:47] LABS: AST(SGOT) 16 U/L (15-37); Alanine Aminotransfer ALT/SGPT 27 U/L (13-56); Albumin, Serum 3.8 g/dL (3.2-5.0); BUN 11 mg/dL (7-18); CPK Total, Creatine Kinase 65 U/L (26-192); CRP < 2.90 mg/L (0.0-3.0); Calcium,Total 9.2 mg/dL (8.5-10.1); EST Glomerular Filtration Rate 107 mL/min (>60); Est Glom Filt Rate - Afr Amer 130 mL/min (>60)
[2021-09-15 11:23] LABS: CCP IgG Antibodies 9 units (0-19)
== END 2021-09-13 23:59 | disposition home or self-care (01) ==
PROVIDERS: PCP Internal Medicine Infectious Disease; Referring Provider Internal Medicine Rheumatology; Visit Provider Internal Medicine Rheumatology
DX: M81.0 Age-related osteoporosis without current pathological fracture (principal); Z79.899 Other long term (current) drug therapy
CPT/HCPCS: 36415; 82040; 82306; 82310; 82550; 82565; 84450; 84460; 84520; 85025; 85652; 86140; 86200

== ENCOUNTER → 2022-01-19 | Outpatient (CLI) | payer MEDICARE, OTHER, SELFPAY ==
--- NOTE | 2022-01-19 12:33 | ECHOD_ITS ---
Reason For Study: Amaurosis Fugax Procedure This was a 2D Doppler, Color Flow transthoracic echocardiogram. Bubble Study Performed. The exam was of adequate technical quality. Exam performed in department. Left Ventricle Normal LV size. Mid cavitary false tendon noted. Left ventricular systolic function is normal. The estimated ejection fraction is 70 %. No evidence for diastolic dysfunction. No regional wall motion abnormalities noted. Right Ventricle Normal RV size. Normal systolic function. Atria Normal left atrium. Normal right atrium. No doppler evidence for ASD. Bubble contrast study negative for right to left interatrial shunt. Mitral Valve There is mild mitral annular calcification. Normal mitral valve. Trivial mitral valve insufficiency. Tricuspid Valve Normal tricuspid valve. Trivial tricuspid valve insufficiency. Unable to estimate RV systolic pressure due to insufficient tricuspid regurgitant envelope. Aortic Valve Trisinus/trileaflet aortic valve. Normal aortic valve. Pulmonic Valve The pulmonic valve is not well visualized. Great Vessels The aortic root is not well visualized. Pericardium/Pleural No pericardial effusion. Medication 20 gauge I.V. with prn adaptor inserted into right arm. Performed a rapid injection of agitated mix of 9 cc saline and 1cc air to assess for atrial septal defect. MMode/2D Measurements & Calculations LVIDd: 3.4 cm IVSd: 0.74 cm LA dimension: 2.8 cm LVIDs: 2.1 cm LVPWd: 0.66 cm RVDd: 2.2 cm FS: 38.5 % LAV(MOD-bp): 15.5 ml LA A4 area: 8.2 cm2 RA A4 area: 7.1 cm2 LAV(MOD-bp) Indexed: 11.4 ml/m2 LAV(MOD-sp2): 16.7 ml LAV(MOD-sp4): 14.3 ml Time Measurements MV dec time: 0.26 sec Doppler Measurements & Calculations MV E max estevan: 89.5 cm/sec Lat Peak E' Estevan: 10.9 cm/sec Med Peak E' Estevan: 9.0 cm/sec MV A max estevan: 98.9 cm/sec E/E' lat: 8.2 E/E' med: 10.0 MV E/A: 0.90 MV V2 max: 103.0 cm/sec MV P1/2t max estevan: 92.2 cm/sec Ao V2 max: 111.7 cm/sec MV max P.2 mmHg MV P1/2t: 53.5 msec Ao max P.0 mmHg MV V2 mean: 59.9 cm/sec MV dec slope: 504.7 cm/sec2 MV mean P.7 mmHg MV V2 VTI: 23.3 cm MVA(P1/2t): 4.1 cm2 LV V1 max: 91.3 cm/sec PA V2 max: 104.0 cm/sec LV V1 max P.3 mmHg ECHO/Echo Complete Interpretation Summary Left ventricular systolic function is normal. The estimated ejection fraction is 70 %. Mid cavitary false tendon noted. There is mild mitral annular calcification. Trivial mitral valve insufficiency. Trivial tricuspid valve insufficiency. Unable to estimate RV systolic pressure due to insufficient tricuspid regurgita nt envelope. No evidence for diastolic dysfunction. Bubble contrast study negative for right to left interatrial shunt. Ordering Physician: Sotero Brewer Referring Physician: Sotero Brewer Performed By: Tayo Hicks RCS
--- NOTE | 2022-01-19 12:34 | CDU_ITS ---
Reason For Study: Amaurosis Fugax Rt. Velocities/BP Lt. Velocities/BP Prox CCA 82/18 cm/sec. Prox CCA 95/25 cm/sec. Mid CCA 94/23 cm/sec. Mid CCA 77/24 cm/sec. Dist CCA 70/24 cm/sec. Dist CCA 62/20 cm/sec. Prox ICA 77/19 cm/sec. Prox ICA 64/21 cm/sec. Mid ICA 90/30 cm/sec. Mid ICA 71/28 cm/sec. Dist ICA 91/35 cm/sec. Dist ICA 100/39 cm/sec. Rt. ICA/CCA = 1.0. Lt. ICA/CCA = 1.3. Prox ECA 83/11 cm/sec. Prox ECA 75/15 cm/sec. Rt. Vert. 57/17 cm/sec. Lt. Vert. 45/8 cm/sec. Right Extracranial There is heterogeneous, smooth atherosclerotic plaque noted in the right common carotid artery. There is intimal thickening but no significant atherosclerotic plaque noted in the right internal carotid artery. There is heterogeneous, smooth atherosclerotic plaque noted in the right external carotid artery. Antegrade flow is noted in the right vertebral artery. Left Extracranial There is intimal thickening but no significant atherosclerotic plaque noted in the left common carotid artery. There is heterogeneous, smooth atherosclerotic plaque noted in the left internal carotid artery. There is intimal thickening but no significant atherosclerotic plaque noted in the left external carotid artery. Antegrade flow is noted in the left vertebral artery. Procedure Carotid Duplex 51701. This is a Carotid Duplex examination using B-mode, color flow and specral Doppler. Exam performed in department. VL/Carotid Duplex Ultrasound Interpretation Summary No significant atherosclerotic plaque or stenosis noted in the right internal c arotid artery. Mild (<50%) stenosis left extracranial internal carotid. Flow within the vertebral a rteries is antegrade bilaterally. Ordering Physician: Sotero Brewer Referring Physician: Elena Loo Performed By: Arleen Glover, SARY, RVT
== END | disposition home or self-care (01) ==
LOC: CVS 12:32
PROVIDERS: PCP Internal Medicine Infectious Disease; Referring Provider Ophthalmology; Visit Provider Ophthalmology
DX: G45.3 Amaurosis fugax (principal); G43.801 Other migraine, not intractable, with status migrainosus
CPT/HCPCS: 93306; 93880; A4216

== ENCOUNTER → 2022-02-20 | Outpatient (CLI) | payer MEDICARE, OTHER, SELFPAY ==
[2022-02-20 13:06] LABS: ALB/GLOB Ratio 1.2 RATIO (0.9-2.4); AST(SGOT) 24 U/L (15-37); Alanine Aminotransfer ALT/SGPT 35 U/L (13-56); Albumin, Serum 3.7 g/dL (3.2-5.0); Alkaline Phosphatase 73 U/L (45-117); Anion Gap 5 (5-15); BUN 7 mg/dL (7-18); BUN/Creat Ratio 10.3 RATIO (10-20); Chloride 100 mmol/L (98-107); Creatinine, Serum 0.68 mg/dL (0.55-1.02); EST Glomerular Filtration Rate 92 mL/min (>60); Est Glom Filt Rate - Afr Amer 112 mL/min (>60); Globulin 3.2 g/dL (2.2-4.2); Glucose 113 mg/dL (74-106); Potassium 3.8 mmol/L (3.5-5.1); Protein, Total 6.9 g/dL (6.4-8.2); Sodium Level 136 mmol/L (136-145)
== END | disposition home or self-care (01) ==
LOC: MTLAB 10:54
PROVIDERS: PCP Internal Medicine Infectious Disease; Referring Provider Internal Medicine Rheumatology; Visit Provider Internal Medicine Rheumatology
DX: Z79.899 Other long term (current) drug therapy (principal)
CPT/HCPCS: 36415; 80053

== ENCOUNTER → 2022-03-29 | Outpatient (CLI) | payer MEDICARE, OTHER, SELFPAY ==
[2022-03-29 09:58] LABS: Color, Urine Yellow (Yellow); Glucose, Dipstick Normal (Normal); Ketone-Dipstick Negative (Negative); Leukocyte Esterase-Dipstick 25 /ul (Negative); Nitrite-Dipstick Negative (Negative); Occult Blood-Urine 25 /ul (Negative); Protein-Dipstick Negative (Negative); Urine Bilirubin Dipstick Negative (Negative); Urine Clarity Clear (Clear); Urine Urobilinogen Normal (Normal); Urine pH 6.5 (5.0 - 8.0)
[2022-03-29 10:03] LABS: Hematocrit 42.4 % (37-47); Hemoglobin 13.9 g/dL (12.0-15.0); Mean Corp Hgb Conc 32.8 g/dL (32-36); Mean Corpuscular Hgb 31.2 pg (27.0-32.0); Mean Corpuscular Volume 95.1 fL (81-99); Mean Platelet Vol. 10.5 fl (6.2-12.0); Platelet Count 181 K/mm3 (150-450); RBC Distribution Width CV 12.1 % (11.6-14.6); Red Blood Count 4.46 M/mm3 (4.2-5.4); White Blood Count 4.1 K/mm3 (4.4-11.0)
[2022-03-29 10:14] LABS: ALB/GLOB Ratio 1.1 RATIO (0.9-2.4); AST(SGOT) 22 U/L (15-37); Alanine Aminotransfer ALT/SGPT 28 U/L (13-56); Albumin, Serum 3.7 g/dL (3.2-5.0); Alkaline Phosphatase 74 U/L (45-117); Anion Gap 8 (5-15); BUN 11 mg/dL (7-18); BUN/Creat Ratio 16.9 RATIO (10-20); Calcium,Total 8.9 mg/dL (8.5-10.1); Chloride 99 mmol/L (98-107); Cholesterol 271 mg/dL (200); Creatinine, Serum 0.65 mg/dL (0.55-1.02); EST Glomerular Filtration Rate 97 mL/min (>60); Est Glom Filt Rate - Afr Amer 117 mL/min (>60); Globulin 3.4 g/dL (2.2-4.2); Glucose 77 mg/dL (74-106); High Density Lipoprotein 78 mg/dL; Potassium 3.4 mmol/L (3.5-5.1); Protein, Total 7.1 g/dL (6.4-8.2); Sodium Level 136 mmol/L (136-145); Triglycerides 180 mg/dL; Very Low Density Lipoprotein 36 mg/dL (5-40)
== END | disposition home or self-care (01) ==
LOC: MTLAB 08:00
PROVIDERS: PCP Internal Medicine Infectious Disease; Referring Provider Internal Medicine Infectious Disease; Visit Provider Internal Medicine Infectious Disease
DX: M81.0 Age-related osteoporosis without current pathological fracture (principal); Z79.899 Other long term (current) drug therapy
CPT/HCPCS: 36415; 80053; 80061; 81002; 82306; 85027

== ENCOUNTER → 2022-05-17 | Outpatient (CLI) | payer MEDICARE, OTHER, SELFPAY ==
[2022-05-17 12:16] LABS: Absolute Lymphocyte Count 0.77 X10^3/uL (0.83-4.51); Basophil# 0.04 X10^3/uL; Basophil% 0.9 % (0-1); Eosinophil# 0.08 X10^3/uL; Eosinophils% 1.8 % (0-5); Hematocrit 41.5 % (37-47); Hemoglobin 13.8 g/dL (12.0-15.0); Lymphocyte # 0.77 X10^3/ul (0.83-4.51); Lymphocyte % 17.5 % (19-41); Mean Corp Hgb Conc 33.3 g/dL (32-36); Mean Corpuscular Hgb 31.7 pg (27.0-32.0); Mean Corpuscular Volume 95.2 fL (81-99); Mean Platelet Vol. 10.7 fl (6.2-12.0); Monocyte% 11.4 % (0-10); NRBC Flagged by Analyzer 0 % (0-5); Neutrophil # 2.99 X10^3/uL (2.7-7.7); Neutrophil % 68.2 % (47-70); Platelet Count 178 K/mm3 (150-450); RBC Distribution Width CV 12.3 % (11.6-14.6); RBC Distribution Width SD 43.7 fl (35.1-43.9); Red Blood Count 4.36 M/mm3 (4.2-5.4); White Blood Count 4.4 K/mm3 (4.4-11.0)
[2022-05-17 12:35] LABS: Erythrocyte Sedimentation Rate 8 mm/hr (0-30)
[2022-05-17 12:48] LABS: ALB/GLOB Ratio 1.1 RATIO (0.9-2.4); AST(SGOT) 16 U/L (15-37); Alanine Aminotransfer ALT/SGPT 24 U/L (13-56); Albumin, Serum 3.8 g/dL (3.2-5.0); Alkaline Phosphatase 74 U/L (45-117); Anion Gap 6 (5-15); BUN 9 mg/dL (7-18); CRP < 2.90 mg/L (0.0-3.0); Calcium,Total 9.2 mg/dL (8.5-10.1); Chloride 102 mmol/L (98-107); Creatinine, Serum 0.64 mg/dL (0.55-1.02); EST Glomerular Filtration Rate 99 mL/min (>60); Est Glom Filt Rate - Afr Amer 119 mL/min (>60); Globulin 3.4 g/dL (2.2-4.2); Glucose 109 mg/dL (74-106); Potassium 3.6 mmol/L (3.5-5.1); Protein, Total 7.2 g/dL (6.4-8.2); Sodium Level 138 mmol/L (136-145)
== END | disposition home or self-care (01) ==
LOC: MTLAB 10:48
PROVIDERS: PCP Internal Medicine Infectious Disease; Referring Provider Internal Medicine Infectious Disease; Visit Provider Internal Medicine Infectious Disease
DX: E87.6 Hypokalemia (principal); Z79.899 Other long term (current) drug therapy
CPT/HCPCS: 36415; 80053; 85025; 85652; 86140

== ENCOUNTER → 2022-05-23 | Outpatient (CLI) | payer MEDICARE, OTHER, SELFPAY ==
[2022-05-23 15:36] LABS: T4 Free Direct 0.86 ng/dL (0.76-1.46); Thyroid Stim Hormone (TSH) 3.48 uIU/mL (0.358-3.74)
[2022-05-25 16:08] LABS: PROEL- A/G Ratio 1.4 (0.7-1.7); PROEL- Albumin 3.9 g/dL (2.9-4.4); PROEL- Alpha-1 Globulin 0.3 g/dL (0.0-0.4); PROEL- Alpha-2 Globulin 0.6 g/dL (0.4-1.0); PROEL- Gamma Globulin 0.9 g/dL (0.4-1.8); PROEL- Globulin, Total 2.7 g/dL (2.2-3.9); PROEL- TOTAL PROTEIN 6.6 g/dL (6.0-8.5)
== END | disposition home or self-care (01) ==
PROVIDERS: PCP Internal Medicine Infectious Disease; Referring Provider Internal Medicine Rheumatology; Visit Provider Internal Medicine Rheumatology
DX: E07.9 Disorder of thyroid, unspecified (principal); M81.0 Age-related osteoporosis without current pathological fracture
CPT/HCPCS: 36415; 82310; 83970; 84165; 84439; 84443

== ENCOUNTER 2022-05-31 05:35 | Emergency (ER) | payer MEDICARE, OTHER, SELFPAY ==
[2022-05-31 05:35] VITALS: BP 132/88; PULSE 134; RESP 18; TEMP 36.8; O2SAT 93; BMI 19.8
[2022-05-31 05:57] VITALS: O2SAT 100
--- NOTE | 2022-05-31 06:05 | RAD_ITS ---
STUDY: X-RAY CHEST REASON FOR EXAM: Female, 67 years old. Cough TECHNIQUE: Portable, upright, AP chest x-ray COMPARISON: 08/25/2021 FINDINGS: Right lower lung 2.7 cm nodular opacity. There is no demonstrated pleural abnormality. Normal size heart. Normal mediastinum and kevin. Normal visualized pulmonary arteries. Normal visualized aortic arch and descending thoracic aorta. There is no demonstrated abnormality of the visualized soft tissue structures of the upper abdomen. RAD/Chest 1 View (Portable) IMPRESSION: Right lower lung 2.7 cm nodular opacity may represent pulmonary nodule versus focal consolidation. Recommend chest CT to evaluate malignant potential. Electronically Signed: Patrick Jenkins MD at 6:24 EST ,
[2022-05-31 06:17] LABS: Absolute Lymphocyte Count 0.27 X10^3/uL (0.83-4.51); Absolute Neutrophil Count 5.9 X10^3/uL (2.0-7.7); Basophil# 0.02 X10^3/uL; Basophil% 0.3 % (0-1); Differential Indicated SCAN CRITERIA MET; Eosinophil# 0.01 X10^3/uL; Eosinophils% 0.1 % (0-5); Hematocrit 40.5 % (37-47); Hemoglobin 13.5 g/dL (12.0-15.0); Lymphocyte # 0.27 X10^3/ul (0.83-4.51); Mean Corp Hgb Conc 33.3 g/dL (32-36); Mean Corpuscular Hgb 31.3 pg (27.0-32.0); Mean Corpuscular Volume 93.8 fL (81-99); Mean Platelet Vol. 10.1 fl (6.2-12.0); Monocyte% 7.4 % (0-10); NRBC Flagged by Analyzer 0 % (0-5); Neutrophil # 5.93 X10^3/uL (2.7-7.7); Neutrophil % 87.9 % (47-70); POSITIVE DIFFERENTIAL YES; Platelet Count 133 K/mm3 (150-450); RBC Distribution Width CV 12.2 % (11.6-14.6); RBC Distribution Width SD 42.8 fl (35.1-43.9); Red Blood Count 4.32 M/mm3 (4.2-5.4); White Blood Count 6.8 K/mm3 (4.4-11.0)
[2022-05-31 06:28] LABS: Anion Gap 9 (5-15); BUN 7 mg/dL (7-18); BUN/Creat Ratio 9.9 RATIO (10-20); Calcium,Total 8.7 mg/dL (8.5-10.1); Chloride 97 mmol/L (98-107); Creatinine, Serum 0.71 mg/dL (0.55-1.02); EST Glomerular Filtration Rate 88 mL/min (>60); Est Glom Filt Rate - Afr Amer 106 mL/min (>60); Estimated Creatinine Clearance 38.96 ml/min; Glucose 109 mg/dL (74-106); Potassium 3.8 mmol/L (3.5-5.1); Sodium Level 134 mmol/L (136-145)
[2022-05-31 06:29] LABS: Differential Comment SCANNED
--- NOTE | 2022-05-31 06:41 | EKG12_ITS ---
Test Reason : cough Blood Pressure : / mmHG Vent. Rate : 130 BPM Atrial Rate : 130 BPM P-R Int : 150 ms QRS Dur : 058 ms QT Int : 294 ms P-R-T Axes : 067 -08 060 degrees QTc Int : 432 ms Sinus tachycardia with occasional Premature ventricular complexes Septal infarct , age undetermined Abnormal ECG Confirmed by NOE MARTINEZ, ALMAZ ([id number]), metropolitan editor GARRY MADERA ([id number]) on 06/05/2022 9:34:34 A M Referred By: Confirmed By:KELLI LIU MD
--- NOTE | 2022-05-31 06:52 | CT_ITS ---
EXAM: CT ANGIOGRAPHY CHEST WITHOUT AND WITH INTRAVENOUS CONTRAST CLINICAL INDICATION: chest pain TECHNIQUE: Helically acquired angiography images were obtained of the chest without and with intravenous contrast. This CT exam was performed using one or more of the following dose reduction techniques: automated exposure control, adjustment of the mA and/or kV according to patient size, and/or use of iterative reconstruction technique. This report was created using [employer] report generation technology. MIP reconstructed images were created and reviewed. CONTRAST: 75 cc of Isovue-370 IV. RADIATION DOSE: CTDIvol = 4.32 mGy, DLP = 121.25 mGy-cm. COMPARISON: None. FINDINGS: PULMONARY ARTERIES: Unremarkable. Normal in caliber. No evidence of pulmonary embolism. AORTA: Unremarkable. Normal in caliber. No evidence of dissection. GREAT VESSELS OF AORTIC ARCH: Unremarkable. Normal in caliber. No evidence of dissection. LUNGS AND PLEURAL SPACES: Bronchial wall thickening and plugging of several segmental and subsegmental bronchi in the posterior aspect of the right lower lobe associated with centrilobular nodular opacities, patchy groundglass opacities and small consolidations posteriorly. Mild groundglass opacities in the right middle lobe. No mass. No pleural effusion or thickening. No pneumothorax. HEART: Unremarkable. Heart size is normal. No pericardial effusion. No signs of right heart strain, ratio of right ventricle to left ventricle measures less than 1. MEDIASTINUM: Unremarkable. No mediastinal or hilar adenopathy. Esophagus is unremarkable. No hiatal hernia. THYROID: Unremarkable. No thyroid lesions. BONES/JOINTS: Unremarkable. No suspicious lytic or blastic abnormality. CT/CTA Chest W/WO Contrast IMPRESSION: 1. No pulmonary embolism or dissection. 2. Bronchial wall thickening and plugging of several segmental and subsegmental bronchi in the posterior aspect of the right lower lobe associated with centrilobular nodular opacities, patchy groundglass opacities and small consolidations posteriorly. Mild groundglass opacities in the right middle lobe. Differential diagnosis includes infection and allergic bronchopulmonary aspergillosis. Electronically Signed: Calin Barraza MD at 7:49 EST ,
--- NOTE | 2022-05-31 06:55 | EX.ED.VIS.UR ---
HPI HPI - URI History of Present Illness Chief Complaint: Cough Narrative Narrative: Patient presenting with a cough. She states she has an upcoming trip to [place] tomorrow and she wants a magic wand to fix her symptoms. She is been coughing for about 8 days. Initial symptoms were congestion and rhinorrhea. She is not had fever. She does admit to feeling body aches and chills. No nausea or vomiting. She is not having chest pain. She does at times feel like she is short of breath. She states her biggest complaint is coughing and she states that she is a little annoyed she is not coughing anymore now that she is in the emergency room. Patient was seen at urgent care a few days ago and was started on Keflex for sinusitis and has been taking this without significant relief of her symptoms. She does have an albuterol inhaler as well. Manuel of asthma or COPD. She gets this inhaler for acute bronchitis at times. ROS ROS ED Constitutional Constitutional ED: Reports chills; Denies fever(s) or weight loss Eyes Eyes: Denies change in vision or diplopia ENT ENT ED: Reports ear pain bilateral and rhinorrhea Cardiovascular Cardiovascular: Reports racing heartbeat; Denies chest pain Respiratory/Chest Respiratory/Chest: Reports cough and dyspnea Gastrointestinal Gastrointestinal: Denies abdominal pain, nausea or vomiting Genitourinary Genitourinary ED: Denies dysuria or hematuria Musculoskeletal Musculoskeletal: Reports myalgias Integumentary Denies abscess or Abrasions Neurologic Neurologic: Reports headache(s); Denies paresthesias or weakness Psychiatric Psychiatric: Denies anxiety or depression [facility] Medical History History of arthritis Multiple sclerosis Seasonal allergic reaction Worsening headaches Home Medications alprazolam 0.5 mg tablet 0.5 mg PO BID PRN PRN Anxiety 09/25/13 [History Last Taken Unknown] ikpmuyjize-iyzukcfahoydx-qwlossfs 50 mg-325 mg-40 mg tablet 1 cap PO BID PRN PRN Pain 09/25/13 [History Last Taken Unknown] gabapentin 800 mg tablet 800 mg PO QHS 09/25/13 [History Last Taken Unknown] hydroxychloroquine 200 mg tablet 200 mg PO BIDCM 09/25/13 [History Last Taken Unknown] protriptyline 10 mg tablet 15 mg PO QHS 09/25/13 [History Last Taken Unknown] rizatriptan 10 mg tablet 10 mg PO .X1 PRN 09/25/13 [History Last Taken Unknown] dimethyl fumarate 240 mg capsule,delayed release (Tecfidera) 240 mg PO BID 07/14/19 [History Last Taken Unknown] ibandronate 3 mg/3 mL intravenous syringe (Boniva) 3 mg .Route QMONTH 07/14/19 [History Last Taken Unknown] albuterol sulfate 90 mcg/actuation aerosol inhaler (ProAir HFA) 1 inh inhalation ONCE 09/18/20 [History Last Taken Unknown] prednisone 2.5 mg tablet 2.5 ea PO PRN PRN arthritis 09/18/20 [History Last Taken Unknown] zolpidem 12.5 mg tablet,extended release,multiphase 12.5 mg PO QHS 09/18/20 [History Last Taken Unknown] ergocalciferol (vitamin D2) 1,250 mcg (50,000 unit) capsule 1,250 mcg PO QMONTH 08/25/21 [History Last Taken Unknown] omeprazole 20 mg tablet,delayed release 20 mg PO DAILY 08/25/21 [History Last Taken Unknown] cephalexin 500 mg capsule 500 mg PO Q12H 10 days #20 caps 05/28/22 [Rx Last Taken Unknown] prednisone 10 mg tablet 50 mg PO DAILY 5 days #25 tabs 05/31/22 [Rx Last Taken Unknown] Allergy/AdvReac Type Severity Reaction Status Date / Time succinylcholine Allergy Unknown Verified 05/31/22 05:38 [From Anectine] clavulanic acid AdvReac Unknown Unknown Verified 05/31/22 05:38 [From Augmentin] amoxicillin AdvReac Unknown Verified 05/31/22 05:38 erythromycin base AdvReac Unknown Verified 05/31/22 05:38 Social History Smoking Status: Never smoker alcohol intake: never EXAM Physical Exam Const Vital Signs: 05/31/22 05:35 05/31/22 05:57 Temperature 98.2 F Temperature Source Temporal Pulse Rate 134 H Respiratory Rate 18 Respiratory Effort Normal Respiratory Depth Normal Respiratory Pattern Normal Blood Pressure 132/88 H Blood Pressure Mean 102 Pulse Ox 93 Oxygen Delivery Method Room Air Room Air Positive well nourished General Appearance ED: Negative for pallor HEENT Reports moist mucous membranes normocephalic and atraumatic Throat: posterior oropharynx normal Eyes PERRL and EOMs intact bilaterally Neck no lymphadenopathy, supple and no meningeal signs Resp normal respiratory effort and clear to auscultation bilaterally Resp Narrative: Coarse breath sounds bilaterally without any wheezing. Auscultation: Negative for wheezes Cardio Rate: tachycardic Rhythm: regular rhythm GI non-tender and non-distended Back/Spine no CVA tenderness Neuro oriented x3 and CN's II-XII intact bilaterally Sensorium / Orientation: alert Motor Exam: strength 5/5 throughout Psych mental status grossly normal Skin General Skin Exam: Negative for jaundice or pallor MDM MDM MDM Narrative Medical decision making narrative: DoneObtained blood work and her CBC shows no leukocytosis and her white blood cell count is 6.8. Hemoglobin 13.5 and stable. Platelets are slightly low at 133. She is noted to be lymphopenic. Renal function and electrolytes unremarkable. I obtained a chest x-ray which on my interpretation shows concern for an opacity in the right lower lung. The radiologist states this is either a pulmonary nodule or focal infection. Radiology recommended that a CT scan. Since the patient is slightly hypoxic at 93% on room air and tachycardic at 134 I will obtain a CTA. EKG was obtained and on my interpretation this shows sinus tachycardia with a ventricular rate of 130 bpm. High-sensitivity troponin is 22. CTA of the chest was obtainedBronchial wall thickening and plugging of several segmental and subsegmental bronchi in the posterior aspect of the right lower lobe associated with centrilobular nodular opacities, patchy groundglass opacities and small consolidations posteriorly.? Mild groundglass opacities in the right middle lobe.? Differential diagnosis includes infection and allergic bronchopulmonary aspergillosis. I spoke with Dr. Gray about this read and he thought this was likely due to a initial virus and patient is having trouble clearing her secretions. He recommended Pep therapy and increase her steroids for a few days at home. She will be given 50 mg for the next 5 days. He did states she can follow-up with him. He also recommended checking a viral respiratory panel. He did not recommend antibiotics. Patient I do not believe the patient needs to wait for the results of this. She will follow-up with us online. She is leaving town tomorrow but is recommended that she follow-up. Return precautions were provided. Impression: 1. Viral syndrome 2. Mucous plugging 3. Tachycardia Lab Data Attestation: I reviewed the patient's lab results. Labs: Laboratory Results - last 24 hr 05/31/22 05/31/22 05/31/22 06:11 06:11 06:46 WBC 6.8 RBC 4.32 Hgb 13.5 Hct 40.5 MCV 93.8 MCH 31.3 MCHC 33.3 RDW Std Deviation 42.8 RDW Coeff of You 12.2 Plt Count 133 L MPV 10.1 Immature Gran % (Auto) 0.300 Neut % (Auto) 87.9 H Lymph % (Auto) 4.0 L [place] % (Auto) 7.4 Eos % (Auto) 0.1 Baso % (Auto) 0.3 Absolute Neuts (auto) 5.9 Absolute Lymphs (auto) 0.27 L Nucleated RBC % 0 Differential Comment SCANNED Sodium 134 L Potassium 3.8 Chloride 97 L Carbon Dioxide 28.0 Anion Gap 9 BUN 7 Creatinine 0.71 Estim Creat Clear Calc 38.96 Est GFR (MDRD) Af Amer 106 Est GFR (MDRD) Non-Af 88 BUN/Creatinine Ratio 9.9 L Glucose 109 H Calcium 8.7 Troponin I High Sens 22 Radiography Diagnostic Testing: Clinical Impression(s) from Imaging Studies Chest X-Ray 05/31/22 06:05 IMPRESSION: Right lower lung 2.7 cm nodular opacity may represent pulmonary nodule versus focal consolidation. Recommend chest CT to evaluate malignant potential. Electronically Signed: Patrick Jenkins MD at 6:24 EST , Chest CTA 05/31/22 06:52 IMPRESSION: 1. No pulmonary embolism or dissection. 2. Bronchial wall thickening and plugging of several segmental and subsegmental bronchi in the posterior aspect of the right lower lobe associated with centrilobular nodular opacities, patchy groundglass opacities and small consolidations posteriorly. Mild groundglass opacities in the right middle lobe. Differential diagnosis includes infection and allergic bronchopulmonary aspergillosis. Electronically Signed: Calin Barraza MD at 7:49 EST , Discharge Plan Triage Chief Complaint: Cough ED Provider: Ananth Cui Dx/Rx/DC Orders Instructions: ED Bronchitis, No Antibiotic (Adult) Prescriptions: New prednisone 10 mg tablet 50 mg PO DAILY 5 Days Qty: 25 0RF No Action ibandronate [Boniva] 3 mg/3 mL syringe 3 mg .Route QMONTH Rx Instructions: 3mg/3ml every 3 months Tecfidera 240 mg capsule,delayed release(DR/EC) 240 mg PO BID albuterol sulfate [ProAir HFA] 90 mcg/actuation HFA aerosol inhaler 1 inh INHALATION ONCE prednisone 2.5 mg tablet 2.5 ea PO PRN PRN (Reason: arthritis) Label Comments: TAKE 1 OR 2 OR 3 TABLETS BY MOUTH EVERY MORNING DIRECTED zolpidem 12.5 mg tablet,ext release multiphase 12.5 mg PO QHS cephalexin 500 mg capsule 500 mg PO Q12H 10 Days Qty: 20 0RF rizatriptan 10 MG tablet 10 mg PO .X1 PRN hifoapbmex-huveegfwrrkjx-tybq 1 TABLET tablet 1 cap PO BID PRN PRN (Reason: Pain) Label Comments: protriptyline 10 MG tablet 15 mg PO QHS alprazolam 0.5 MG tablet 0.5 mg PO BID PRN PRN (Reason: Anxiety) gabapentin 800 MG tablet 800 mg PO QHS Label Comments: may take up to 1600 mg hydroxychloroquine 200 MG tablet 200 mg PO BIDCM ergocalciferol (vitamin D2) [Ergo-D] 1,250 mcg (50,000 unit) Capsule 1,250 mcg PO QMONTH omeprazole 20 mg Tablet,Delayed Release (Dr/Ec) 20 mg PO DAILY Primary Care Provider: Elena Loo Referrals: Terry Gray MD [Med Staff - Active Staff] - As Needed Elena Loo MD [Primary Care Provider] - Disposition Disposition: Home, Self Care
[2022-05-31 07:08] LABS: Troponin-I HS 22 pg/mL (3.0-54.0)
== END 2022-05-31 09:02 | disposition home or self-care (01) ==
PROVIDERS: Emergency Provider Student in an Organized Health Care Education/Training Program; PCP Internal Medicine Infectious Disease; Visit Provider Student in an Organized Health Care Education/Training Program
DX: B34.9 Viral infection, unspecified (principal); R00.0 Tachycardia, unspecified
CPT/HCPCS: 99281; 71045; 71275; 80048; 84484; 85025; 87633; 93005; 94667; 99251; 99282; Q9967; A4216; G0463

== ENCOUNTER → 2022-06-29 | Outpatient (CLI) | payer MEDICARE, OTHER, SELFPAY ==
[2022-06-29 15:16] LABS: Hematocrit 39.9 % (37-47); Mean Corp Hgb Conc 32.6 g/dL (32-36); Mean Corpuscular Hgb 31.3 pg (27.0-32.0); Mean Corpuscular Volume 96.1 fL (81-99); Mean Platelet Vol. 10.6 fl (6.2-12.0); Platelet Count 258 K/mm3 (150-450); RBC Distribution Width CV 12.9 % (11.6-14.6); RBC Distribution Width SD 45.9 fl (35.1-43.9); Red Blood Count 4.15 M/mm3 (4.2-5.4); White Blood Count 5.3 K/mm3 (4.4-11.0)
[2022-06-29 15:48] LABS: ALB/GLOB Ratio 1.2 RATIO (0.9-2.4); AST(SGOT) 14 U/L (15-37); Alanine Aminotransfer ALT/SGPT 21 U/L (13-56); Albumin, Serum 3.7 g/dL (3.2-5.0); Alkaline Phosphatase 132 U/L (45-117); Anion Gap 7 (5-15); BUN 6 mg/dL (7-18); BUN/Creat Ratio 10.1 RATIO (10-20); Calcium,Total 9.2 mg/dL (8.5-10.1); Chloride 99 mmol/L (98-107); Creatinine, Serum 0.59 mg/dL (0.55-1.02); EST Glomerular Filtration Rate 108 mL/min (>60); Est Glom Filt Rate - Afr Amer 130 mL/min (>60); Globulin 3.1 g/dL (2.2-4.2); Glucose 96 mg/dL (74-106); Potassium 3.8 mmol/L (3.5-5.1); Protein, Total 6.8 g/dL (6.4-8.2); Sodium Level 135 mmol/L (136-145)
== END | disposition home or self-care (01) ==
LOC: MTLAB 11:42
PROVIDERS: PCP Internal Medicine Infectious Disease; Referring Provider Internal Medicine Infectious Disease; Visit Provider Internal Medicine Infectious Disease
DX: E87.6 Hypokalemia (principal)
CPT/HCPCS: 36415; 80053; 85027

== ENCOUNTER → 2022-07-27 | Outpatient (CLI) | payer MEDICARE, OTHER, SELFPAY ==
--- NOTE | 2022-07-27 11:42 | RAD_ITS ---
STUDY: X-RAY CHEST REASON FOR EXAM: Female, 67 years old. Cough. TECHNIQUE: Frontal and lateral views of the chest. COMPARISON: May 31, 2022. FINDINGS: Stable mild hyperinflation. There is no demonstrated pleural abnormality. Normal size heart. Normal mediastinum and kevin. Normal visualized pulmonary arteries. Normal visualized aortic arch and descending thoracic aorta. Normal visualized thoracic spine. Normal visualized ribs, clavicles, and shoulders. There is no demonstrated abnormality of the visualized soft tissue structures of the upper abdomen. RAD/Chest PA and Lateral IMPRESSION: Hyperinflation with no acute or active cardiopulmonary disease. Electronically Signed: Eben Mortensen, at 13:01 EST ,
== END | disposition home or self-care (01) ==
LOC: MTRAD 11:37
PROVIDERS: PCP Internal Medicine Infectious Disease; Referring Provider Internal Medicine Pulmonary Disease; Visit Provider Internal Medicine Pulmonary Disease
DX: R05.9 Cough, unspecified (principal)
CPT/HCPCS: 71046

== ENCOUNTER → 2022-08-16 | Outpatient (CLI) | payer MEDICARE, OTHER, SELFPAY ==
--- NOTE | 2022-08-16 10:32 | BI_ITS ---
MAMMOGRAPHY - BILATERAL SCREENING REASON FOR EXAM: Female, 67 years old. Routine annual screening examination. PERTINENT HISTORY: Sister with breast cancer. TECHNIQUE: Digital bilateral breast juan (3D mammographic acquisition) in the CC and MLO projections. 2-D mediolateral oblique (MLO) and craniocaudad (CC) views of both breasts were obtained. CAD: Full Field Digital Mammography with Computer Added Detection was performed. COMPARISON: Comparison is made with prior examination dated 06/02/2021 and 05/18/2020. FINDINGS: Breast Composition: There are scattered areas of fibroglandular density. There are no dominant masses or suspicious calcifications. No other significant abnormalities are identified. There has been no significant change since the prior study. BI/SCRN MAMM (CAD)W/JUAN BILAT IMPRESSION: Stable bilateral screening mammogram. Yearly follow-up mammogram recommended. (A) ASSESSMENT CATEGORY: BIRADS Category 1: Negative. A letter regarding these results will be sent to the patient by the facility within 30 days. Approximately 10% of breast cancers are not detected by mammography. A normal mammogram should not delay biopsy of a clinically suspicious abnormality. [id number] Electronically Signed: Nikolas Masters MD at 12:56 EST ,
== END | disposition home or self-care (01) ==
LOC: OPBI 10:30
PROVIDERS: PCP Internal Medicine Infectious Disease; Referring Provider Student in an Organized Health Care Education/Training Program; Visit Provider Student in an Organized Health Care Education/Training Program
DX: Z12.31 Encounter for screening mammogram for malignant neoplasm of breast (principal); Z80.3 Family history of malignant neoplasm of breast
CPT/HCPCS: 77063; 77067

== ENCOUNTER 2022-12-07 10:30 | Outpatient (RCR) | payer MEDICARE, OTHER, SELFPAY ==
--- NOTE | 2022-11-01 15:43 | HP.PTEVAL_ITS ---
Patient's Visit Information NATHAN BAPTISTE is a 67 year old F referred to Physical Therapy by Dr. Te Alberts DO with a diagnosis of WEDGE COMPRESSION FRACTURE T11-T12 VERTEBRA, 4TH LUMBAR VERTEBRA FRACTURE. Date of Evaluation: 11/01/22 Physical Therapist: Baldemar Espinoza, PT, Cert MDT, OCS - Visit Plan Frequency: 2x /Week Duration: 4 Weeks Plan: PT INTERVENTIONS WB ACTIVITIES OSTEOPROSIS ,DLS ,POSTURAL EX'S , AND FUNCTIONAL STRENGTHENING - Subjective This 67 y/o female presents to physical therapy for wedge fracture compression lumbar/thoracic. Patient has h/o osteoporosis and has taken medication which will be changed by [employer]. Patient seen back specialist and had CATSCAN at [facility] which showed T11 12 and lumbar. Patient injury was Aug [facility] twisted and flexion heard pop with immediate pain. Patient legs gave way and fell down. Patient went to ER by friend. Patient pain located at lumbar /thoracic . Aggravating factors bending/lifting/twisting and extended standing . Alleviating factors walking and ,rest and sitting. Denies paresthesia/tingling-. Bowel/bladder -. Patient sleeping good but with sleep aide. Patient has no abnormal night pain. Patient goals to have no pain and get stronger. SOCIAL: . VOCATION: retired - Objective POSTURE: mild thoracic kyphosis swayed spine. NEURO: denies paresthesia/tingling. PALAPTION: unremarkable. AROM: BUE WFL. LUMBAR ROM: flexion min loss ,extension mod loss ,side glides mod loss. THORACIC ROM: flexion mod loss ,extension mod loss ,. MMT: BUE grossly 4/5 ,hips 4-/5 ankle 4/5. quads/hams 4/5 ,hip flexion 4-/5 , ankle 4/5 - Special Tests L/S Slump test left side: Negative L/S Slump test right side: Negative L/S Left Straight Leg Raise: Negative L/S Right Straight Leg Raise: Negative - Balance/Special Test Scores Oswestry Low Back Score: 18 - Goals Goal 1:: Patient to be HEP for back Goal Time Frame: 4-6 Weeks Goal 2:: Patient to improve posture/body mechanics 80% for ADLS Goal Time Frame: 4-6 Weeks Goal 3:: Patient to demonstrate 50% improvement with function with less pain Goal Time Frame: 4-6 Weeks Goal 4:: Patient to improve back oswestry score by 5 points to improve and QOL. Goal Time Frame: 4-6 Weeks - Rehabilitation Potential Physical Therapy Diagnosis: This patient has osteoporosis with fracture vertebra T11 -T12 ,L4 with decrease function and pain with position and motion testing and motion testing thus benefit from skilled PT Rehabilitation Potential: Good - Anticipated Interventions Patient/Client Instruction: Educate patient on: Condition, Plan of Care For the Purpose of:: To decrease pain, To increase ROM, To improve muscle performance and motor function, To improve ability to perform ADL's, To increase tolerance to activity/condition/position, To improve ability of physical actions for home/community/work/leisure, To improve health of tissue, To decrease soft tissue restriction, To increase flexibility/ROM, To prevent re-injury Therapeutic Exercise to Include: Strength training, Power training, Endurance training, Postural training, Dynamic Lumbar Stabilization Comment: WB ACTIVITIES For the Purpose of:: To decrease pain, To increase ROM, To improve muscle performance and motor function, To improve ability to perform ADL's, To increase tolerance to activity/condition/position, To improve ability of physical actions for home/community/work/leisure, To improve health of tissue, To decrease soft tissue restriction, To increase flexibility/ROM Thank you for the opportunity to evaluate your patient. For Medicare and Medicare HMO plans, please review the plan of care and approve it. It will need to be FAXED BACK to us at [phone] for Medicare purposes. For Medicare only, by signing this I certify the plan of care. Please let me know if there are questions or concerns regarding this plan of care. Physician Signature: Date:
--- NOTE | 2022-12-07 10:49 | HP.PTDCSUM ---
It has been my pleasure to treat NATHAN BAPTISTE referred by Dr. Te Alberts DO, with the diagnosis of WEDGE COMPRESSION FRACTURE T11-T12 VERTEBRA, 4TH LUMBAR VERTEBRA FRACTURE for a total of 9 visit(s). Discharge Date: 12/07/22 Please see the following information for a summary of their discharge status. Subjective: Doing well ,ready for d/c LB Pain Intensity (Out of 10): 3 % Improvement: 90 Objective/Function: POSTURE: mild thoracic kyphosis swayed spine. NEURO: denies paresthesia/tingling. AROM: BUE WFL. LUMBAR ROM: flexion min loss ,extension mod loss ,side glides mod loss. THORACIC ROM: flexion mIN loss ,extension mod loss ,. MMT: BUE grossly 4/5 ,hips 4/5 ankle 4/5. quads/hams 4/5 ,hip flexion 4/5 , ankle 4/5 Goal 1:: Patient to be HEP for back Goal Progress: Goal Met Goal 2:: Patient to improve posture/body mechanics 80% for ADLS Goal Progress: Goal Met Goal 3:: Patient to demonstrate 50% improvement with function with less pain Goal Progress: Goal Met Goal 4:: Patient to improve back oswestry score by 5 points to improve and QOL. Goal Progress: Goal Met Plan: D/C Discharge Comments: HEP If there are questions or concerns regarding this patient's physical therapy, please feel free to call me at [phone]. Thank you for the referral of this patient. Sincerely, Baldemar Espinoza, PT, Cert MDT, OCS Balance/Gait/Functional tests - Balance/Special Test Scores Oswestry Low Back Score: 1
== END 2022-12-07 19:00 | disposition home or self-care (01) ==
LOC: PT 10:30
PROVIDERS: PCP Internal Medicine Infectious Disease; Referring Provider Orthopaedic Surgery; Visit Provider Orthopaedic Surgery
DX: S22.080D Wedge compression fracture of T11-T12 vertebra, subsequent encounter for fracture with routine healing (principal); S22.040D Wedge compression fracture of fourth thoracic vertebra, subsequent encounter for fracture with routine healing
CPT/HCPCS: 97110; 97162; 97530

== ENCOUNTER 2023-02-22 11:53 | Outpatient (CLI) | payer MEDICARE, OTHER, SELFPAY | END 2023-02-22 23:59 | disposition home or self-care (01) | LOC: MTLAB 11:54 | PROVIDERS: PCP Internal Medicine Infectious Disease; Referring Provider Internal Medicine Rheumatology; Visit Provider Internal Medicine Rheumatology | DX: Z79.899 Other long term (current) drug therapy (principal); E55.9 Vitamin D deficiency, unspecified | CPT/HCPCS: 36415; 82306 ==

== ENCOUNTER → 2023-04-19 | Outpatient (CLI) | payer MEDICARE, OTHER, SELFPAY ==
--- NOTE | 2023-04-19 07:26 | CT_ITS ---
EXAM: CT CHEST WITHOUT INTRAVENOUS CONTRAST CLINICAL INDICATION: Cough TECHNIQUE: Helically acquired images were obtained of the chest without intravenous contrast. This CT exam was performed using one or more of the following dose reduction techniques: automated exposure control, adjustment of the mA and/or kV according to patient size, and/or use of iterative reconstruction technique. RADIATION DOSE: CTDIvol = 6.16 mGy, DLP = 201.68 mGy-cm COMPARISON: CTA chest 05/31/2022 FINDINGS: LUNGS AND PLEURAL SPACES: Unremarkable. No mass. No consolidation or edema. No pleural effusion or thickening. No pneumothorax. HEART: Unremarkable. Heart size is normal. No pericardial effusion. No significant coronary artery calcifications. MEDIASTINUM: Unremarkable. No mediastinal or hilar adenopathy. Esophagus is unremarkable. No hiatal hernia. THYROID: Unremarkable. No thyroid lesions. BONES/JOINTS: Degenerative changes of the spine. No suspicious lytic or blastic abnormality. VASCULATURE: Unremarkable. Thoracic aorta is non-dilated. CT/Chest without Contrast IMPRESSION: No acute findings in the chest. Electronically Signed: Maxim Villegas MD at 8:00 EDT ,
== END | disposition home or self-care (01) ==
LOC: CT 07:25
PROVIDERS: PCP Internal Medicine Infectious Disease; Referring Provider Internal Medicine Pulmonary Disease; Visit Provider Internal Medicine Pulmonary Disease
DX: J45.991 Cough variant asthma (principal); M05.40 Rheumatoid myopathy with rheumatoid arthritis of unspecified site; R91.8 Other nonspecific abnormal finding of lung field
CPT/HCPCS: 71250

== ENCOUNTER → 2023-07-08 | Outpatient (CLI) | payer MEDICARE, OTHER, SELFPAY ==
[2023-07-08 11:08] LABS: Erythrocyte Sedimentation Rate 3 mm/hr (0-30)
[2023-07-08 11:11] LABS: Absolute Lymphocyte Count 0.64 X10^3/uL (0.83-4.51); Absolute Neutrophil Count 2.9 X10^3/uL (2.0-7.7); Basophil# 0.05 X10^3/uL; Basophil% 1.2 % (0-1); Eosinophil# 0.04 X10^3/uL; Hematocrit 41.3 % (37-47); Lymphocyte # 0.64 X10^3/ul (0.83-4.51); Lymphocyte % 15.7 % (19-41); Mean Corp Hgb Conc 31.5 g/dL (32-36); Mean Corpuscular Volume 95.4 fL (81-99); Mean Platelet Vol. 11.3 fl (6.2-12.0); Monocyte# 0.45 X10^3/uL; Monocyte% 11.1 % (0-10); NRBC Flagged by Analyzer 0 % (0-5); Neutrophil # 2.87 X10^3/uL (2.7-7.7); Neutrophil % 70.5 % (47-70); Platelet Count 175 K/mm3 (150-450); RBC Distribution Width CV 12.5 % (11.6-14.6); RBC Distribution Width SD 44.3 fl (35.1-43.9); Red Blood Count 4.33 M/mm3 (4.2-5.4); White Blood Count 4.1 K/mm3 (4.4-11.0)
[2023-07-08 11:23] LABS: ALB/GLOB Ratio 1.1 RATIO (0.9-2.4); AST(SGOT) 19 U/L (15-37); Alanine Aminotransfer ALT/SGPT 21 U/L (13-56); Albumin, Serum 3.6 g/dL (3.2-5.0); Alkaline Phosphatase 62 U/L (45-117); Anion Gap 7 (5-15); BUN 9 mg/dL (7-18); BUN/Creat Ratio 14.1 RATIO (10-20); CRP < 2.90 mg/L (0.0-3.0); Calcium,Total 8.3 mg/dL (8.5-10.1); Chloride 106 mmol/L (98-107); Cholesterol 255 mg/dL (200); Creatinine, Serum 0.64 mg/dL (0.55-1.02); EST Glomerular Filtration Rate 99 mL/min (>60); Est Glom Filt Rate - Afr Amer 120 mL/min (>60); Globulin 3.2 g/dL (2.2-4.2); Glucose 88 mg/dL (74-106); High Density Lipoprotein 72 mg/dL; Potassium 3.8 mmol/L (3.5-5.1); Protein, Total 6.8 g/dL (6.4-8.2); Sodium Level 139 mmol/L (136-145); Triglycerides 137 mg/dL; Very Low Density Lipoprotein 27 mg/dL (5-40)
[2023-07-08 14:24] LABS: Hemoglobin A1c 5.2 % (3.8-5.6)
[2023-07-08 15:18] LABS: Color, Urine Yellow (Yellow); Glucose, Dipstick Normal (Normal); Ketone-Dipstick Negative (Negative); Leukocyte Esterase-Dipstick 500 /ul (Negative); Nitrite-Dipstick Negative (Negative); Occult Blood-Urine 25 /ul (Negative); Protein-Dipstick Negative (Negative); Urine Bilirubin Dipstick Negative (Negative); Urine Clarity Sl. Cloudy (Clear); Urine Urobilinogen Normal (Normal)
== END | disposition home or self-care (01) ==
LOC: MTLAB 08:32
PROVIDERS: PCP Internal Medicine Infectious Disease; Referring Provider Internal Medicine Infectious Disease; Visit Provider Internal Medicine Infectious Disease
DX: E78.5 Hyperlipidemia, unspecified (principal); M05.79 Rheumatoid arthritis with rheumatoid factor of multiple sites without organ or systems involvement; M81.0 Age-related osteoporosis without current pathological fracture; Z79.899 Other long term (current) drug therapy
CPT/HCPCS: 36415; 80053; 80061; 81002; 83036; 85025; 85652; 86140

== ENCOUNTER → 2023-08-14 | Outpatient (CLI) | payer MEDICARE, OTHER, SELFPAY ==
--- NOTE | 2023-08-14 09:54 | BD_ITS ---
STUDY: DUAL ENERGY X-RAY ABSORPTIOMETRY / DXA REASON FOR EXAM: Female, 68 years old. M810 TECHNIQUE: Bone Mineral Density (BMD) measurements of lumbar spine and bilateral hips were obtained. COMPARISON: Comparison is made with prior study of March 09, 2021. FINDINGS: Lumbar Spine (L1-L4): g/cm2 (0.510) / T-score (-4.6) / Z-score (-2.7) Findings are suggestive of osteoporosis with a high fracture risk. Left Femur Total: g/cm2 (0.621) / T-score (-2.6) / Z-score (-1.3) Left Femoral Neck: g/cm2 (0.442) / T-score (-3.7) / Z-score (-2.0) Right Femur Total: g/cm2 (0.656) / T-score (-2.3) / Z-score (-1.0) Right Femoral Neck: g/cm2 (0.479) / T-score (-3.3) / Z-score (-1.7) The T-Scores on the most recent prior examination were: Lumbar Spine (L1-L4): There has been worsening of bone density since the previous examination. Left Femur Total: which represents a worsening of 4.1. Right Femur Total: which represents a worsening of 4.5%. BD/Dexa Bone Density Study IMPRESSION: The patient is considered osteoporotic as outlined below according to World Ramo Organization (WHO) criteria with a high fracture risk. There has been worsening of bone density since the previous examination. Reference Information: The T-score is the number of standard deviations above or below the standard which is normal for young adults at their peak bone mineral density. The World Health Organization (WHO) interprets the T-scores as follows: Above -1 Normal bone density Between -1 and -2.5 Osteopenia Equal to / or below -2.5 Osteoporosis As a practical clinical guideline, osteopenia may be graded as follows: Mild -1 through -1.5 Moderate -1.6 through -2.0 Severe -2.1 through -2.4 The Z-score is the number of standard deviations above or below age-matched controls. A Z-score of less than -1.5 would be considered abnormal. References: 1. NIH Osteoporosis and Related Bone Diseases www osteo.org 2. International Society for Clinical Densitometry www iscd.org 3. National Osteoporosis Foundation www nof.org Electronically Signed: Nikolas Masters MD at 10:19 EST ,
--- OUTSIDE RECORDS SUMMARY | 2023-08-14 10:17 | XMS RPT_ITS | CCD ---
Author Name Unknown Address [address] [facility] [address] [place] [address] Organization [facility] Care Team Providers Care [employer] Professor Name Role Phone CHAN DUVALL MD Attending Unavailable GLADIS MARTINEZ, DR OVIEDO Primary Care Unavailable ANTWON LESTER Referring Unavailable IVELISSE LOO Primary Care Unavailable Ivelisse Loo MD Primary Care Provider FELIPA VILLALOBOS Attending Unavailable IVELISSE LOO MD Consulting Unavailable IVELISSE LOO MD Referring Unavailable FELIPA VILLALOBOS Admitting Unavailable FELIPA VILLALOBOS Primary Care Unavailable PROVIDER, UNKNOWN Consulting Unavailable PROVIDER, UNKNOWN Consulting Unavailable PROVIDER, UNKNOWN Consulting Unavailable IVELISSE LOO MD Attending Unavailable IVELISSE LOO MD Admitting Unavailable IVELISSE LOO MD Primary Care Unavailable IVELISSE LOO MD Consulting Unavailable PROVIDER, UNKNOWN Consulting Unavailable PROVIDER, UNKNOWN Consulting Unavailable PROVIDER, UNKNOWN Consulting Unavailable IVELISSE LOO MD Primary Care Unavailable IVELISSE LOO MD Attending Unavailable IVELISSE LOO MD Admitting Unavailable IVELISSE LOO MD Consulting Unavailable PROVIDER, UNKNOWN Consulting Unavailable PROVIDER, UNKNOWN Consulting Unavailable PROVIDER, UNKNOWN Consulting Unavailable IVELISSE LOO MD Attending Unavailable IVELISSE LOO MD Admitting Unavailable IVELISSE LOO MD Consulting Unavailable IVELISSE LOO MD Primary Care Unavailable PROVIDER, UNKNOWN Consulting Unavailable PROVIDER, UNKNOWN Consulting Unavailable PROVIDER, UNKNOWN Consulting Unavailable Allergies Allergy Classification Reported Allergen(s) Allergy Type Date of Onset Reaction(s) Facility (2 sources) Erythromycin; Translations: [ERYTHROMYCIN] Drug Allergy 6 [facility] (2 sources) Phenazopyridine; Translations: [PHENAZOPYRIDINE HCL] Drug Allergy 6 [facility] (2 sources) Sulfonamides (Antibiotic); Translations: [SULFA (SULFONAMIDE ANTIBIOTICS)] Propensity to adverse reactions to drug (disorder) 6 GI Upset [facility] (2 sources) AMOXICILLIN-POT CLAVULANATE; Translations: [AMOXICILLIN-POT CLAVULANATE] Propensity to adverse reactions to drug (disorder) 6 Diarrhea [facility] (1 source) OTHER; Translations: [OTHER] Propensity to adverse reactions (disorder) 6 [facility] (1 source) nectine [Other] Propensity to adverse reactions 6 [facility] Work Phone: Medications Completed/Discontinued Medications Medication Drug Class(es) Dates Sig (Normalized) Sig (Original) acetaminophen 325 mg / butalbital 50 mg / caffeine 40 mg oral tablet (1 source) Barbiturate, Central Nervous System Stimulant, Methylxanthine Start: 06-26-2001 FIORICET TABLET 325-40-50 PO 1 po prn headaches 0 06/26/2001 Active Problems Problem Classification Problem Date Documented Da te Episodic/Chronic Disorders of lipid metabolism (1 source) Hyperlipidemia, unspecified; Translations: [Hyperlipidemia, unspecified] Onset: 07-04-2023 Chronic Fluid and electrolyte disorders (1 source) Hypokalemia; Translations: [Hypokalemia] Onset: 07-04-2023 Episodic Multiple sclerosis (1 source) Multiple sclerosis; Translations: [Multiple sclerosis] Onset: 05-22-2012 05-22-2012 Chronic Osteoporosis (2 sources) Osteoporosis; Translations: [Age-related osteoporosis without current pathological fracture] Onset: 05-22-2012 05-22-2012 Chronic Other nervous system disorders (1 source) Spinal cord disease; Translations: [Other specified diseases of spinal cord] 11-15-2003 Chronic Rheumatoid arthritis and related disease (1 source) Rheumatoid arthritis, unspecified; Translations: [Rheumatoid arthritis] 11-15-2003 Chronic Results Test Name Value Interpretation Reference Range Facil ity Encounters Encounter Date Encounter Type Care Provider Facility Start: 07-04-2023 ambulatory IVELISSE Valeznuela [facility] Start: 11-21-2022 End: 11-26-2022 ambulatory CHAN DUVALL MD Facility:A Start: 08-25-2022 End: 08-25-2022 Emergency department patient visit FELIPA VILLALOBOS [facility] Start: 07-12-2022 End: 07-12-2022 ambulatory ANTWON LESTER Facility:[facility] Start: 07-12-2022 End: 07-12-2022 Subsequent hospital visit by physician Mri Radio [facility] (I-Stat/1.5t) Work Phone: Radiology Procedures Date Procedure Procedure Detail Performing Clinician Start: 07-12-2022 BRAIN & CERVICAL SPI NE MRI DISCRETE DATA [facility] Provider Start: 07-12-2022 Mri brain brain stem w/o w/contrast material [facility] Provider Start: 11-19-2006 Lipid 1996 panel - S starr or Plasma Mri (I-Stat/1.5t) Work Phone: Plan of Treatment Date Care Activity Detail Author Start: 03-22-2023 Covid-19 Vaccine () Covid-19 Vaccine () [facility] Start: 03-22-2023 Influenza vaccination Influenza Vacc ine (#1) [facility] Start: 07-22-2022 Advance Directive Discussion Advance Directive Discussion [facility] Start: 07-22-2022 Depression Assessment Depression Ass essment [facility] Start: 2021 Bone Density Screening Bone Density Screening [facility] Start: 2021 Pneumococcal Vaccine : 65+ (1 - PCV) Pneumococcal Vaccine: 65+ (1 - PCV) [facility] Start: 09-20-[address] [facility] Start: 11-20-2011 Lipid 1996 panel - S starr or Plasma Lipid Screening [facility] Start: 11-19-2009 Diabetes Screening Diabetes Screenin g [facility] Start: 2006 Shingrix Vaccine (1 of 2) Shingrix V accine (1 of 2) [facility] Start: 2001 Cologuard (FIT-DNA) Cologuard (FIT-D NA) [facility] Start: 2001 Colonoscopy Colonoscopy [facility] Start: 2001 Colorectal Cancer Screening Colorectal Cancer Screening [facility] Start: [address] Colonography [facility] Start: 2001 Fecal Occult Blood Fecal Occult Bloo d [facility] Start: 2001 Sigmoidoscopy Sigmoidoscopy [facility] Start: 1975 Urine microalbumin profile DTa P,Tdap,Td Vaccine (1 - Tdap) [facility] Start: 1974 Hepatitis C Screening Hepatitis C Sc crystal [facility] Immunizations Immunization Date Immunization Notes Care Provider Fa cility 04-21-2020 influenza virus vacc ine, unspecified formulation Mri (I-Stat/1.5t) Work Phone: [facility] 05-03-2016 influenza virus vacc ine, unspecified formulation Mri (I-Stat/1.5t) Work Phone: [facility] Payers Date Payer Category Payer Medicare [id number] 2022 Unknown MMO MMO MEDICARE SUPPLEMENT [id number] 2022-Present [phone] [address] [place] [address] Indemnity [id number] 2021 Medicare [id number] 2021 Medicare MEDICARE MEDICAR E A AND B [id number] 2021-Present [phone] [address] [address] [place] [address] Medicare 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 Author Type: Technologist Type: Progress Notes Filed: 07/12/2022 12:05 PM Note Text: Radiology Service Progress Note DATE OF SERVICE: July 12, 2022 TIME: 12:04 PM PATIENT IDENTITY VERIFICATION COMPLETED USING TWO (2) STANDARD IDENTIFIERS: Name and Date of confirmed by patient verbally. FALL SCREENING: Has the patient had 2 falls in the last year or 1 fall with injury or currently using an Ambulatory Assistive Device (Walker, Cane, Wheelchair, Crutches, etc.)? No PATIENT GENDER DATA: Female. status: : No status: NO. PATIENT RELEVANT IMPLANT DATA REVIEWED: Yes ALLERGIES: Reviewed and unchanged CONTRAST ALLERGY: NO. EXAM: MRI - CONTRAST TYPE: GROUP II PERIPHERAL IV DATA: Ambulatory: A peripheral IV was started in the Right antecubital site with a Angio cath: 22 gauge. RADIOLOGY DEPARTMENT: MR; Exam(s) Completed: Head: Multiple Sclerosis SIGNATURE: RT Oumar(Georgina) PATIENT NAME: Cookie Hurtado DATE: July 12, 2022 TIME: 12:04 PM [facility] History of Present illness Narrative 07-12-2022 Arianna Polo RT(R) - 07/12/2022 11:20 AM EST Note Date & Type Note Facility 07-12-2022 History of Presen t illness Narrative Radiology Service Progress Note DATE OF SERVICE: July 12, 2022 TIME: 12:04 PM PATIENT IDENTITY VERIFICATION COMPLETED USING TWO (2) STANDARD IDENTIFIERS: Name and Date of confirmed by patient verbally. FALL SCREENING: Has the patient had 2 falls in the last year or 1 fall with injury or currently using an Ambulatory Assistive Device (Walker, Cane, Wheelchair, Crutches, etc.)? No PATIENT GENDER DATA: Female. status: : No status: NO. PATIENT RELEVANT IMPLANT DATA REVIEWED: Yes ALLERGIES: Reviewed and unchanged CONTRAST ALLERGY: NO. EXAM: MRI - CONTRAST TYPE: GROUP II PERIPHERAL IV DATA: Ambulatory: A peripheral IV was started in the Right antecubital site with a Angio cath: 22 gauge. RADIOLOGY DEPARTMENT: MR; Exam(s) Completed: Head: Multiple Sclerosis SIGNATURE: RT Oumar(R) PATIENT NAME: Cookie Hurtado DATE: July 12, 2022 TIME: 12:04 PM documented in this encounter [facility] Summary Purpose Family History No Family History Records FoundNo Family History Records FoundNo Family History Records Found Advance Directives No Advanced Directives Records FoundNo Advanced Directives Records FoundNo Advanced Directives Records Found Additional Source Comments INFORMATION SOURCE (unrecogn ized section and content) DATE CREATED AUTHOR AUTHOR'S ORGANIZ ATION 04/25/2023 [facility] DATE CREATED AUTHOR AUTHOR'S ORGANIZ ATION 07/06/2023 [facility] Source Comments (unrecognize d section and content) In the event this informatio n is protected by the Federal Confidentiality of Alcohol and Drug Abuse Patient Records regulations: The Federal rules restrict any use of the information to criminally investigate or prosecute any alcohol or drug abuse patient.[facility] Care Teams (unrecognized sec tion and content) FOR RECORDS PERTAINING TO PATIENTS WHO ARE OR HAVE BEEN ENROLLED IN A CHEMICAL DEPENDENCY/SUBSTANCEABUSE PROGRAM, SOME INFORMATION MAY BE OMITTED. This clinical summary was aggregated from multiple sources. Caution should be exercised in using it in the provision of clinical care. This summary normalizes information from multiple sources, and as a consequence, information in this document may materially change the coding, format and clinical context of patient data. In addition, data may be omitted in some cases. CLINICAL DECISIONS SHOULD BE BASED ON THE PRIMARY CLINICAL RECORDS. [facility] [employer] [facility]. provides no warranty or guarantee of the accuracy or completeness of information in this document.
== END | disposition home or self-care (01) ==
LOC: OPBD 09:52
PROVIDERS: PCP Internal Medicine Infectious Disease; Visit Provider Internal Medicine Rheumatology
DX: M81.0 Age-related osteoporosis without current pathological fracture (principal)
CPT/HCPCS: 77080

== ENCOUNTER → 2023-08-19 | Outpatient (CLI) | payer MEDICARE, OTHER, SELFPAY ==
--- NOTE | 2023-08-19 10:40 | BI_ITS ---
MAMMOGRAPHY - BILATERAL SCREENING REASON FOR EXAM: Female, 68 years old. Routine annual screening examination. PERTINENT HISTORY: Sister with breast cancer. TECHNIQUE: Digital bilateral breast juan (3D mammographic acquisition) in the CC and MLO projections. 2-D mediolateral oblique (MLO) and craniocaudad (CC) views of both breasts were obtained. CAD: Full Field Digital Mammography with Computer Added Detection was performed. COMPARISON: Comparison is made with prior study dated February 13, 2023 and June 02, 2021. FINDINGS: Breast Composition: There are scattered areas of fibroglandular density. Focal area of architectural distortion is seen in the slightly upper lateral aspect of the right breast. The patient will be recalled for additional views including 90 degree lateral and compression spot views. No other significant abnormalities are identified. BI/SCRN MAMM (CAD)W/JUAN BILAT IMPRESSION: Focal area of articular distortion is now seen in the slightly upper lateral aspect of the right breast. The patient will be called for additional views including 90 degree lateral and compression spot views. Recall Side: Right Breast ASSESSMENT CATEGORY: BIRADS Category 0: Incomplete. Need additional imaging evaluation. A letter regarding these results will be sent to the patient by the facility within 30 days. Approximately 10% of breast cancers are not detected by mammography. A normal mammogram should not delay biopsy of a clinically suspicious abnormality. [id number] Electronically Signed: Nikolas Mastesr MD at 12:22 EST ,
== END | disposition home or self-care (01) ==
LOC: OPBI 10:38
PROVIDERS: PCP Internal Medicine Infectious Disease; Referring Provider Internal Medicine Infectious Disease; Visit Provider Internal Medicine Infectious Disease
DX: Z12.31 Encounter for screening mammogram for malignant neoplasm of breast (principal)
CPT/HCPCS: 77063; 77067

== ENCOUNTER → 2023-08-23 | Outpatient (CLI) | payer MEDICARE, OTHER, SELFPAY ==
--- NOTE | 2023-08-23 08:54 | BI_ITS ---
MAMMOGRAPHY - UNILATERAL DIAGNOSTIC: RIGHT BREAST REASON FOR EXAM: Female, 68 years old. Abnormal screening mammogram. PERTINENT HISTORY: Sister with breast cancer. TECHNIQUE: Compression spot views of the right breast in mediolateral oblique and craniocaudal projections were obtained. 90 degree lateral view of the right breast was obtained as well. CAD: Full Field Digital Mammography with Computer Added Detection was performed. COMPARISON: Comparison is made with prior study dated August 19, 2023. FINDINGS: Breast Composition: There are scattered areas of fibroglandular density. There are no dominant masses or suspicious calcifications. No other significant abnormalities are identified. BI/DIAG MAMM W/CAD, UNILAT IMPRESSION: Negative unilateral diagnostic mammogram. Yearly followup mammogram recommended. (A) ASSESSMENT CATEGORY: BIRADS Category 1: Negative. A letter regarding these results will be sent to the patient by the facility within 30 days. Approximately 10% of breast cancers are not detected by mammography. A normal mammogram should not delay biopsy of a clinically suspicious abnormality. Electronically Signed: Nikolas Masters MD at 9:47 EST ,
== END | disposition home or self-care (01) ==
PROVIDERS: PCP Internal Medicine Infectious Disease; Referring Provider Internal Medicine Infectious Disease; Visit Provider Internal Medicine Infectious Disease
DX: R92.8 Other abnormal and inconclusive findings on diagnostic imaging of breast (principal)
CPT/HCPCS: 77065

== ENCOUNTER → 2023-12-04 | Outpatient (CLI) | payer MEDICARE, OTHER, SELFPAY ==
[2023-12-04 18:20] LABS: Absolute Lymphocyte Count 1.04 X10^3/uL (0.83-4.51); Absolute Neutrophil Count 4.4 X10^3/uL (2.0-7.7); Basophil# 0.03 X10^3/uL; Basophil% 0.5 % (0-1); Eosinophil# 0.09 X10^3/uL; Eosinophils% 1.5 % (0-5); Hematocrit 40.8 % (37-47); Lymphocyte # 1.04 X10^3/ul (0.83-4.51); Lymphocyte % 17.2 % (19-41); Mean Corp Hgb Conc 31.9 g/dL (32-36); Mean Corpuscular Hgb 30.5 pg (27.0-32.0); Mean Corpuscular Volume 95.8 fL (81-99); Monocyte# 0.46 X10^3/uL; Monocyte% 7.6 % (0-10); NRBC Flagged by Analyzer 0 % (0-5); Neutrophil # 4.39 X10^3/uL (2.7-7.7); Neutrophil % 72.9 % (47-70); Platelet Count 178 K/mm3 (150-450); RBC Distribution Width CV 12.5 % (11.6-14.6); RBC Distribution Width SD 44.2 fl (35.1-43.9); Red Blood Count 4.26 M/mm3 (4.2-5.4)
[2023-12-04 18:39] LABS: ALB/GLOB Ratio 1.1 RATIO (0.9-2.4); AST(SGOT) 14 U/L (15-37); Alanine Aminotransfer ALT/SGPT 21 U/L (13-56); Albumin, Serum 3.8 g/dL (3.2-5.0); Alkaline Phosphatase 67 U/L (45-117); Anion Gap 6 (5-15); BUN 7 mg/dL (7-18); BUN/Creat Ratio 12.3 RATIO (10-20); Calcium,Total 8.8 mg/dL (8.5-10.1); Chloride 99 mmol/L (98-107); Creatinine, Serum 0.57 mg/dL (0.55-1.02); EST Glomerular Filtration Rate 113 mL/min (>60); Est Glom Filt Rate - Afr Amer 136 mL/min (>60); Globulin 3.4 g/dL (2.2-4.2); Glucose 110 mg/dL (74-106); Potassium 3.3 mmol/L (3.5-5.1); Protein, Total 7.2 g/dL (6.4-8.2); Sodium Level 134 mmol/L (136-145)
== END | disposition home or self-care (01) ==
PROVIDERS: PCP Internal Medicine Infectious Disease; Referring Provider Psychiatry & Neurology Neurology; Visit Provider Psychiatry & Neurology Neurology
DX: G35 Multiple sclerosis (principal)
CPT/HCPCS: 36415; 80053; 85025

== ENCOUNTER → 2023-12-25 | Outpatient (CLI) | payer MEDICARE, OTHER, SELFPAY ==
[2023-12-25 18:16] LABS: Calcium,Total 9.5 mg/dL (8.5-10.1); Magnesium 2.1 mg/dL (1.6-2.6)
== END | disposition home or self-care (01) ==
PROVIDERS: PCP Internal Medicine Infectious Disease; Referring Provider Internal Medicine Rheumatology; Visit Provider Internal Medicine Rheumatology
DX: M05.79 Rheumatoid arthritis with rheumatoid factor of multiple sites without organ or systems involvement (principal); M81.0 Age-related osteoporosis without current pathological fracture
CPT/HCPCS: 36415; 82040; 82310; 83735; 84100

== ENCOUNTER → 2024-01-27 | Outpatient (CLI) | payer MEDICARE, OTHER, SELFPAY | END | disposition home or self-care (01) | LOC: LABSPEC 11:02 | PROVIDERS: PCP Internal Medicine Infectious Disease; Referring Provider Nurse Practitioner Family; Visit Provider Nurse Practitioner Family | DX: N39.0 Urinary tract infection, site not specified (principal) | CPT/HCPCS: 87077; 87086; 87088; 87186 ==

== ENCOUNTER 2024-03-11 12:52 | Emergency (ER) | payer MEDICARE, OTHER, SELFPAY ==
[2024-03-11 12:54] VITALS: BP 139/60; PULSE 93; RESP 18; TEMP 36.6; O2SAT 100; BMI 20.2
--- NOTE | 2024-03-11 13:29 | CT_ITS ---
STUDY: CT BRAIN WITHOUT CONTRAST REASON FOR EXAM: Female, 68 years old. Headache RADIATION DOSAGE (If Supplied By Facility): CTDIvol = ( 44.99 ) mGy, DLP = ( 745.49 ) mGycm TECHNIQUE: Transaxial CT imaging of the brain was performed without administration of intravenous contrast material. Individualized dose optimization techniques were used for this CT. COMPARISON: Comparison is made with prior study dated August 25, 2021. FINDINGS: Normal soft tissue structures. Normal calvarium. There is mild cerebral atrophy with widening of the extra-axial spaces and ventricular dilatation. There are areas of decreased attenuation within the white matter tracts of the supratentorial brain, consistent with microvascular disease changes. Focal encephalomalacia is seen in the anterior aspect of the right temporal lobe suggestive of old ischemic insult. Normal basal ganglia and thalami. Normal brainstem. Normal cerebellum. There is no intracranial hemorrhage. There are no findings of an acute ischemic infarction. Atherosclerotic plaque formation of the cavernous portions of the internal carotid arteries bilaterally. Normal visualized paranasal sinuses. CT/Brain/Head without Contrast IMPRESSION: Chronic involutional changes of the brain. Electronically Signed: Nikolas Masters MD at 14:10 EDT ,
--- NOTE | 2024-03-11 13:52 | RAD_ITS ---
STUDY: X-RAY CHEST REASON FOR EXAM: Female, 68 years old. Cough TECHNIQUE: Single AP portable view of the chest. COMPARISON: Comparison is made with prior study dated July 27, 2022. FINDINGS: The lungs are clear and expanded. There is no demonstrated pleural abnormality. Normal size heart. Normal mediastinum and kevin. Normal visualized pulmonary arteries. Normal visualized aortic arch and descending thoracic aorta. Normal visualized thoracic spine. There is degenerative osteoarthritis of the bilateral shoulders. There is no demonstrated abnormality of the visualized soft tissue structures of the upper abdomen. RAD/Chest 1 View (Portable) IMPRESSION: No acute abnormality is seen. Electronically Signed: Nikolas Masters MD at 14:06 EDT ,
[2024-03-11 14:00] LABS: Erythrocyte Sedimentation Rate 32 mm/hr (0-30)
[2024-03-11 14:04] LABS: Absolute Lymphocyte Count 0.34 X10^3/uL (0.83-4.51); Absolute Neutrophil Count 4.9 X10^3/uL (2.0-7.7); Basophil# 0.03 X10^3/uL; Basophil% 0.5 % (0-1); Eosinophil# 0.26 X10^3/uL; Eosinophils% 4.3 % (0-5); Hematocrit 39.2 % (37-47); Hemoglobin 12.9 g/dL (12.0-15.0); Lymphocyte # 0.34 X10^3/ul (0.83-4.51); Lymphocyte % 5.6 % (19-41); Mean Corp Hgb Conc 32.9 g/dL (32-36); Mean Corpuscular Hgb 30.7 pg (27.0-32.0); Mean Corpuscular Volume 93.3 fL (81-99); Mean Platelet Vol. 10.7 fl (6.2-12.0); Monocyte% 8.2 % (0-10); NRBC Flagged by Analyzer 0 % (0-5); Neutrophil # 4.94 X10^3/uL (2.7-7.7); Neutrophil % 80.9 % (47-70); POSITIVE DIFFERENTIAL YES; Partial Thromboplast Time 35.6 Seconds (24.1-36.2); Platelet Count 122 K/mm3 (150-450); Prothrombin Time (Protime)PT. 13.5 SECONDS (11.7-14.9); RBC Distribution Width CV 12.6 % (11.6-14.6); RBC Distribution Width SD 43.3 fl (35.1-43.9); White Blood Count 6.1 K/mm3 (4.4-11.0)
[2024-03-11 14:05] LABS: AST(SGOT) 34 U/L (15-37); Alanine Aminotransfer ALT/SGPT 90 U/L (13-56); Albumin, Serum 3.2 g/dL (3.2-5.0); Alkaline Phosphatase 181 U/L (45-117); Anion Gap 5 (5-15); BUN 5 mg/dL (7-18); BUN/Creat Ratio 8.4 RATIO (10-20); Bilirubin, Direct 0.11 mg/dL (0.00-0.30); Calcium,Total 9.1 mg/dL (8.5-10.1); Chloride 102 mmol/L (98-107); EST Glomerular Filtration Rate 107 mL/min (>60); Est Glom Filt Rate - Afr Amer 129 mL/min (>60); Estimated Creatinine Clearance 49.02 ml/min; Globulin 3.8 g/dL (2.2-4.2); Glucose 129 mg/dL (74-106); Potassium 3.9 mmol/L (3.5-5.1); Sodium Level 132 mmol/L (136-145)
[2024-03-11 14:34] LABS: Bacteria 0 SEEN /hpf (None Seen); Mucous, Urine 0 SEEN /hpf (<or=2+)
--- NOTE | 2024-03-11 14:45 | EDS_ITS ---
HPI History of Present Illness Chief Complaint: General Illness Informant: patient and spouse/S.O. Narrative Narrative: 68-year-old female presenting to the emergency room out of concern for meningitis. Patient has a history of rheumatoid arthritis and states about a week ago she developed sore throat. She states that it felt lower in her throat then most sore throats and she did not have any laryngitis like symptoms. She states that she has had minimal cough. She notes that she is prone to headaches but her headaches seem to be more severe with the illness. She describes them as variable in location. She did a home COVID test that was negative. No vomiting diarrhea. She notes a temperature up to around 99 just shy of 100 which she states for her is definitely fever because she felt achy. She went to urgent care yesterday where COVID test was negative and she was felt to have more of a viral syndrome. When she woke today she notes pain on the sides of her neck. It is worse when she rotates her head. She does not get pain when she flex. She denies any light sensitivity. No rashes. She denies any tick bites. She states that she believes she had a couple mosquito bites a couple weeks ago on her foot. This morning her hands felt different and believes that she could be in the middle of a rheumatoid arthritis flare. She states she called her educational administration teacher who advised her to come to emergency room out of concern for possible meningitis given the neck pain. [facility] Medical History Rheumatoid arthritis GERD (gastroesophageal reflux disease) Osteoporosis Environmental allergies Multiple sclerosis Worsening headaches Seasonal allergic reaction History of arthritis Home Medications ?Medication ?Instructions ?Recorded ?Last Taken ?Type alprazolam 0.5 mg tablet 0.5 mg PO BID PRN PRN Anxiety 09/25/13 Unknown History yjdttxthez-nflgenxknvirk-yegimabp 1 cap PO BID PRN PRN Pain 09/25/13 Unknown History 50 mg-325 mg-40 mg tablet gabapentin 800 mg tablet 800 mg PO QHS 09/25/13 Unknown History hydroxychloroquine 200 mg tablet 200 mg PO BIDCM 09/25/13 Unknown History protriptyline 10 mg tablet 15 mg PO QHS 09/25/13 Unknown History rizatriptan 10 mg tablet 10 mg PO .X1 PRN 09/25/13 Unknown History dimethyl fumarate 240 mg 240 mg PO BID 07/14/19 Unknown History capsule,delayed release (Tecfidera) albuterol sulfate 90 mcg/actuation 1 inh inhalation ONCE 09/18/20 Unknown History aerosol inhaler (ProAir HFA) prednisone 2.5 mg tablet 2.5 ea PO PRN PRN arthritis 09/18/20 Unknown History zolpidem 12.5 mg tablet,extended 12.5 mg PO QHS 09/18/20 Unknown History release,multiphase ergocalciferol (vitamin D2) 1,250 1,250 mcg PO QMONTH 08/25/21 Unknown History mcg (50,000 unit) capsule omeprazole 20 mg tablet,delayed 20 mg PO DAILY 08/25/21 Unknown History release abaloparatide (Tymlos) 80 mcg subcut DAILY 01/25/24 Unknown History denosumab 60 mg/mL subcutaneous mg subcut 01/25/24 Unknown History syringe (Prolia) nitrofurantoin 1 cap PO QDAY 01/25/24 Unknown History monohydrate/macrocrystals 100 mg capsule Allergy/AdvReac Type Severity Reaction Status Date / Time succinylcholine (From Allergy Unknown Verified 03/11/24 12:53 Anectine) Sulfa (Sulfonamide AdvReac Mild Nausea Verified 03/11/24 12:53 Antibiotics) clavulanic acid (From AdvReac Unknown Unknown Verified 03/11/24 12:53 Augmentin) amoxicillin AdvReac Unknown Verified 03/11/24 12:53 erythromycin base AdvReac Unknown Verified 03/11/24 12:53 Family History Other Breast cancer CVA (cerebral vascular accident) Cancer Heart disease Hypertension Kidney disease Surgical History History of cataract extraction Social History Smoking Status: Never smoker alcohol intake: never ROS ROS ED Constitutional Constitutional ED: Reports fever(s) and subjective; Denies chills or weight loss Eyes Eyes: Denies change in vision or diplopia ENT ENT ED: Reports sore throat; Denies ear pain or rhinorrhea Cardiovascular Cardiovascular: Denies chest pain, orthopnea, palpitations or racing heartbeat Respiratory/Chest Respiratory/Chest: Reports cough; Denies dyspnea or orthopnea Gastrointestinal Gastrointestinal: Reports constipation; Denies abdominal pain, diarrhea, nausea or vomiting Genitourinary Genitourinary ED: Denies dysuria, hematuria or urinary frequency Musculoskeletal Musculoskeletal: Reports neck pain and other Details: Bilateral hand pain ; Denies arthralgias, back pain or myalgias Integumentary Denies abscess or rash Neurologic Neurologic: Reports headache(s); Denies paresthesias or weakness Psychiatric Psychiatric: Denies anxiety, depression, suicidal ideation or suicidal thoughts Endocrine Endocrinology: Denies polydipsia, polyphagia or polyuria Allergic/Immunologic Allergic/Immunologic ED: Denies mouth swelling, tongue swelling or urticaria EXAM Physical Exam Narrative Exam Narrative: As I entered the room the patient clinically appears well. She is getting herself into the gown with her lights on and readily turns her head to greet me. Const Vital Signs: 03/11/24 12:54 03/11/24 13:00 03/11/24 14:53 Temperature 97.9 F Temperature Source Temporal Pulse Rate 93 78 Respiratory Rate 18 17 Respiratory Effort Normal Blood Pressure 139/60 H 125/58 H Blood Pressure Mean 86 80 Pulse Ox 100 98 Oxygen Delivery Method Room Air Room Air Positive well nourished and well developed General Appearance ED: well developed HEENT Reports normocephalic, head/scalp atraumatic and moist mucous membranes Eyes PERRL and EOMs intact bilaterally Eyes Narrative: There is no photophobia. Neck no lymphadenopathy, supple and no JVD Neck Narrative: Patient reports lateral neck soreness when she rotates. She has no difficulty with flexion and extension. Resp normal respiratory effort and clear to auscultation bilaterally Cardio regular rate, regular rhythm and no murmurs GI normal to inspection, nondistended, normoactive bowel sounds and non-tender Palpation: soft Back/Spine no CVA tenderness and normal ROM Extremity normal to inspection General Extremety ED: Negative for edema General Extremity: Negative for edema Neuro oriented x3 and CN's II-XII intact bilaterally Sensorium / Orientation: alert Motor Exam: strength 5/5 throughout Psych mental status grossly normal Mood & Affect: Negative for depressed or tearful Skin no rashes or lesions noted and no wounds MDM MDM MDM Narrative Medical decision making narrative: Differential diagnosis is very broad and includes rheumatoid arthritis flare, meningitis, viral syndrome, acute on chronic headaches, pneumonia dehydration sepsis. White count 6.1 hemoglobin 12.9 platelet count is 122. Normal coags. BMP is normal except for glucose of 129. Alkaline phosphatase is 181 C-reactive protein 92 with a sed rate of 32. These have typically been fairly normal on previous labs. My independent interpretation the chest x-ray is no acute process. CT the brain shows no acute findings. Patient is able to walk down the hallway without difficulty. I discussed the above results with the patient. As I discussed with the patient and her before I ordered blood work I feel that she most likely does not have meningitis. If she had bacterial meningitis I would feel that she would be sicker or she demonstrate at least some physical findings of meningitis. Viral meningitis would be mostly supportive unless she has herpes meningitis or encephalitis. But again she clinically appears quite well. I explained to her that an elevated sed rate and CRP is very nonspecific especially in somebody with a history of rheumatoid arthritis that possibly could be having a flare in her hands. We did discuss the possibility of performing a lumbar puncture. Given the low pretest probability in my opinion, a thrombocytopenia and the risk of harm I think it would be in her best interest to not do a lumbar puncture. Patient and her and I you shared decision making and it came up on a mutually agreed upon decision to not perform the LP at this time. Abdomen continues to be benign. Again clinically appears well. Would recommend PCP follow-up return if worsening History & Record Review Discussion w/independent historian: Patient and Significant other Lab Data Attestation: I reviewed the patient's lab results. Labs: Laboratory Results - last 24 hr 03/11/24 03/11/24 13:41 14:18 WBC 6.1 RBC 4.20 Hgb 12.9 Hct 39.2 MCV 93.3 MCH 30.7 MCHC 32.9 RDW Std Deviation 43.3 RDW Coeff of You 12.6 Plt Count 122 L MPV 10.7 Immature Gran % (Auto) 0.500 Neut % (Auto) 80.9 H Lymph % (Auto) 5.6 L [place] % (Auto) 8.2 Eos % (Auto) 4.3 Baso % (Auto) 0.5 Absolute Neuts (auto) 4.9 Absolute Lymphs (auto) 0.34 L Nucleated RBC % 0 ESR 32 H PT 13.5 INR 1.0 APTT 35.6 Sodium 132 L Potassium 3.9 Chloride 102 Carbon Dioxide 25.0 Anion Gap 5 BUN 5 L Creatinine 0.60 Estim Creat Clear Calc 49.02 Est GFR (MDRD) Af Amer 129 Est GFR (MDRD) Non-Af 107 BUN/Creatinine Ratio 8.4 L Glucose 129 H Calcium 9.1 Total Bilirubin 0.30 Direct Bilirubin 0.11 AST 34 ALT 90 H Alkaline Phosphatase 181 H C-React Prot Ext Range 92.30 H Total Protein 7.0 Albumin 3.2 Globulin 3.8 Urine Color Yellow Urine Clarity Sl. Cloudy Urine pH 7.0 Ur Specific [place] 1.010 Urine Protein 15 H Urine Glucose (UA) Normal Urine Ketones Negative Urine Occult Blood 50 H Urine Nitrite Negative Urine Bilirubin Negative Urine Urobilinogen Normal Ur Leukocyte Esterase 500 H Urine RBC 0-5 SEEN Urine WBC 10-25 SEEN Ur Squamous Epith Cells 0-5 SEEN Urine Bacteria 0 SEEN Urine Mucus 0 SEEN Radiography Diagnostic Testing: Clinical Impression(s) from Imaging Studies Brain CT 03/11/24 13:29 IMPRESSION: Chronic involutional changes of the brain. Electronically Signed: Nikolas Masters MD at 14:10 EDT , Chest X-Ray 03/11/24 13:52 IMPRESSION: No acute abnormality is seen. Electronically Signed: Nikolas Masters MD at 14:06 EDT , Discharge Plan Triage Chief Complaint: General Illness ED Provider: Xavier Dent Dx/Rx/DC Orders Clinical Impression: Viral illness, Thrombocytopenia, Headache, Rheumatoid arthritis flare Instructions: ED Viral Syndrome (Adult) Prescriptions: No Action Tecfidera 240 mg capsule,delayed release(DR/EC) 240 mg PO BID albuterol sulfate [ProAir HFA] 90 mcg/actuation HFA aerosol inhaler 1 inh INHALATION ONCE prednisone 2.5 mg tablet 2.5 ea PO PRN PRN (Reason: arthritis) Patient Comments: TAKE 1 OR 2 OR 3 TABLETS BY MOUTH EVERY MORNING DIRECTED zolpidem 12.5 mg tablet,ext release multiphase 12.5 mg PO QHS nitrofurantoin monohyd/m-cryst 100 mg capsule 1 cap PO QDAY Prolia 60 mg/mL syringe subcut Tymlos 80 mcg (3,120 mcg/1.56 mL) pen injector 80 mcg subcut DAILY Rx Instructions: inject into abdomen; do not inject within 2 inches of belly button/navel; rotate sites rizatriptan 10 MG tablet 10 mg PO .X1 PRN qqudgdtkqh-bhftfsnohycub-depe 1 TABLET tablet 1 cap PO BID PRN PRN (Reason: Pain) Patient Comments: protriptyline 10 MG tablet 15 mg PO QHS alprazolam 0.5 MG tablet 0.5 mg PO BID PRN PRN (Reason: Anxiety) gabapentin 800 MG tablet 800 mg PO QHS Patient Comments: may take up to 1600 mg hydroxychloroquine 200 MG tablet 200 mg PO BIDCM ergocalciferol (vitamin D2) [Ergo-D] 1,250 mcg (50,000 unit) Capsule 1,250 mcg PO QMONTH omeprazole 20 mg Tablet,Delayed Release (Dr/Ec) 20 mg PO DAILY Primary Care Provider: Elena Loo Referrals: Elena Loo MD [Primary Care Provider] - 3-5 Days Print Language: Thai Disposition Disposition: Home, Self Care
[2024-03-11 14:49] LABS: Color, Urine Yellow (Yellow); Glucose, Dipstick Normal (Normal); Ketone-Dipstick Negative (Negative); Leukocyte Esterase-Dipstick 500 /ul (Negative); Nitrite-Dipstick Negative (Negative); Occult Blood-Urine 50 /ul (Negative); Protein-Dipstick 15 mg/dl (Negative); Urine Bilirubin Dipstick Negative (Negative); Urine Clarity Sl. Cloudy (Clear); Urine Urobilinogen Normal (Normal)
[2024-03-11 14:53] VITALS: BP 125/58; PULSE 78; RESP 17; O2SAT 98
[2024-03-11 14:55] LABS: Red Blood Cells-Urine 0-5 SEEN /hpf (0-5); Squamous Epithelial Cells - UA 0-5 SEEN /hpf (5-10); White Blood Cells 10-25 SEEN /hpf (0-5)
[2024-03-11 15:23] VITALS: BP 127/69; PULSE 85; RESP 15; TEMP 36.7; O2SAT 99
== END 2024-03-11 15:26 | disposition home or self-care (01) ==
PROVIDERS: Emergency Provider Emergency Medicine; PCP Internal Medicine Infectious Disease; Visit Provider Emergency Medicine
DX: B34.9 Viral infection, unspecified (principal); M06.9 Rheumatoid arthritis, unspecified; D69.6 Thrombocytopenia, unspecified; R51.9 Headache, unspecified; K21.9 Gastro-esophageal reflux disease without esophagitis; Z79.899 Other long term (current) drug therapy; Z98.49 Cataract extraction status, unspecified eye
CPT/HCPCS: 70450; 71045; 80048; 80076; 81001; 85025; 85610; 85652; 85730; 86140; 99283; A4216

== ENCOUNTER → 2024-06-16 | Outpatient (CLI) | payer MEDICARE, OTHER, SELFPAY ==
[2024-06-16 12:34] LABS: Erythrocyte Sedimentation Rate 6 mm/hr (0-30)
[2024-06-16 12:37] LABS: Absolute Lymphocyte Count 0.83 X10^3/uL (0.83-4.51); Absolute Neutrophil Count 3.7 X10^3/uL (2.0-7.7); Basophil# 0.04 X10^3/uL; Basophil% 0.7 % (0-1); Eosinophil# 0.12 X10^3/uL; Eosinophils% 2.2 % (0-5); Hematocrit 41.4 % (37-47); Hemoglobin 13.9 g/dL (12.0-15.0); Lymphocyte # 0.83 X10^3/ul (0.83-4.51); Lymphocyte % 15.5 % (19-41); Mean Corp Hgb Conc 33.6 g/dL (32-36); Mean Corpuscular Hgb 31.5 pg (27.0-32.0); Mean Corpuscular Volume 93.9 fL (81-99); Mean Platelet Vol. 10.6 fl (6.2-12.0); Monocyte# 0.64 X10^3/uL; NRBC Flagged by Analyzer 0 % (0-5); Neutrophil # 3.69 X10^3/uL (2.7-7.7); Platelet Count 220 K/mm3 (150-450); RBC Distribution Width SD 41.8 fl (35.1-43.9); Red Blood Count 4.41 M/mm3 (4.2-5.4); White Blood Count 5.4 K/mm3 (4.4-11.0)
[2024-06-16 12:55] LABS: AST(SGOT) 20 U/L (15-37); Alanine Aminotransfer ALT/SGPT 24 U/L (13-56); BUN 9 mg/dL (7-18); CRP < 2.90 mg/L (0.0-3.0); EST Glomerular Filtration Rate 89 mL/min (>60); Est Glom Filt Rate - Afr Amer 108 mL/min (>60)
== END | disposition home or self-care (01) ==
LOC: MTLAB 10:31
PROVIDERS: PCP Internal Medicine Infectious Disease; Referring Provider Internal Medicine Rheumatology; Visit Provider Internal Medicine Rheumatology
DX: M05.79 Rheumatoid arthritis with rheumatoid factor of multiple sites without organ or systems involvement (principal); M81.0 Age-related osteoporosis without current pathological fracture
CPT/HCPCS: 36415; 82565; 84450; 84460; 84520; 85025; 85652; 86140

== ENCOUNTER → 2024-08-24 | Outpatient (CLI) | payer MEDICARE, OTHER, SELFPAY ==
[2024-08-24 15:58] LABS: Absolute Lymphocyte Count 0.69 X10^3/uL (0.83-4.51); Absolute Neutrophil Count 3.4 X10^3/uL (2.0-7.7); Basophil# 0.05 X10^3/uL; Basophil% 1.1 % (0-1); Eosinophil# 0.09 X10^3/uL; Eosinophils% 1.9 % (0-5); Hematocrit 41.6 % (37-47); Hemoglobin 13.5 g/dL (12.0-15.0); Lymphocyte # 0.69 X10^3/ul (0.83-4.51); Lymphocyte % 14.8 % (19-41); Mean Corp Hgb Conc 32.5 g/dL (32-36); Mean Corpuscular Hgb 30.9 pg (27.0-32.0); Mean Corpuscular Volume 95.2 fL (81-99); Mean Platelet Vol. 11.1 fl (6.2-12.0); Monocyte# 0.43 X10^3/uL; Monocyte% 9.2 % (0-10); NRBC Flagged by Analyzer 0 % (0-5); Neutrophil % 72.8 % (47-70); Platelet Count 183 K/mm3 (150-450); RBC Distribution Width CV 12.6 % (11.6-14.6); RBC Distribution Width SD 43.9 fl (35.1-43.9); Red Blood Count 4.37 M/mm3 (4.2-5.4); White Blood Count 4.7 K/mm3 (4.4-11.0)
[2024-08-24 16:32] LABS: AST(SGOT) 18 U/L (15-37); Alanine Aminotransfer ALT/SGPT 19 U/L (13-56); Albumin, Serum 3.7 g/dL (3.2-5.0); BUN 10 mg/dL (7-18); CRP < 2.90 mg/L (0.0-3.0); Calcium,Total 9.2 mg/dL (8.5-10.1); Creatinine, Serum 0.66 mg/dL (0.55-1.02); EST Glomerular Filtration Rate 94 mL/min (>60); Est Glom Filt Rate - Afr Amer 113 mL/min (>60); Magnesium 2.4 mg/dL (1.6-2.6); Phosphorus 3.3 mg/dL (2.5-4.9)
[2024-08-24 16:59] LABS: Erythrocyte Sedimentation Rate 7 mm/hr (0-30)
== END | disposition home or self-care (01) ==
LOC: MTLAB 11:07
PROVIDERS: PCP Internal Medicine Infectious Disease; Referring Provider Internal Medicine Rheumatology; Visit Provider Internal Medicine Rheumatology
DX: M05.79 Rheumatoid arthritis with rheumatoid factor of multiple sites without organ or systems involvement (principal); Z79.899 Other long term (current) drug therapy; M81.0 Age-related osteoporosis without current pathological fracture
CPT/HCPCS: 36415; 82040; 82310; 82565; 83735; 84100; 84450; 84460; 84520; 85025; 85652; 86140

== ENCOUNTER → 2024-12-07 | Outpatient (CLI) | payer MEDICARE, OTHER, SELFPAY ==
--- NOTE | 2024-12-07 11:44 | BI_ITS ---
EXAM: SCRN MAMM (CAD)W/JUAN BILAT DATE: 12/07/2024 CLINICAL HISTORY: F, Age 69 y/o , SCREENING BREAST CANCER RISK ASSESSMENT: Has not been calculated. TECHNIQUE: Bilateral screening digital breast tomosynthesis with 2D and 3D images. Computer aided detection. COMPARISON: Prior exam(s) dated 08/23/2023, 08/19/2023, and 08/16/2022. FINDINGS: TISSUE DENSITY: The breast tissue is composed of scattered area of fibroglandular density. Bilateral Breast Mammographic Findings: There are no suspicious masses, suspicious cluster of microcalcifications, architectural distortion or secondary signs of malignancy identified in either breast. Benign vascular calcifications are seen in both breasts. No suspicious masses, suspicious cluster of microcalcifications, architectural distortion or secondary signs of malignancy is identified in either breast. A benign-appearing macrocalcification is seen in the right breast. BI/SCRN MAMM (CAD)W/JUNA BILAT IMPRESSION: OVERALL FINAL ASSESSMENT: BIRADS 2 BENIGN FINDING RECOMMENDATION: Routine annual follow-up in 1 Year A letter with findings and recommendations will be mailed to the patient. Reading Location: [id number]
== END | disposition home or self-care (01) ==
LOC: OPBI 11:43
PROVIDERS: PCP Internal Medicine Infectious Disease; Referring Provider Internal Medicine Infectious Disease; Visit Provider Internal Medicine Infectious Disease
DX: Z12.31 Encounter for screening mammogram for malignant neoplasm of breast (principal)
CPT/HCPCS: 77063; 77067

== ENCOUNTER → 2025-01-25 | Outpatient (CLI) | payer MEDICARE, OTHER, SELFPAY | END | disposition home or self-care (01) | LOC: LABSPEC 11:04 | PROVIDERS: PCP Internal Medicine Infectious Disease; Referring Provider Nurse Practitioner Family; Visit Provider Nurse Practitioner Family | DX: R30.0 Dysuria (principal) | CPT/HCPCS: 87077; 87086; 87088; 87186 ==

== ENCOUNTER → 2025-02-15 | Outpatient (CLI) | payer MEDICARE, OTHER, SELFPAY ==
[2025-02-15 15:41] LABS: Hematocrit 40.7 % (37-47); Hemoglobin 13.3 g/dL (12.0-15.0); Immature Granulocytes Count 0.010 X10^3/uL (0.0-0.0); Mean Corp Hgb Conc 32.7 g/dL (32-36); Mean Corpuscular Volume 94.2 fL (81-99); Mean Platelet Vol. 11.1 fl (6.2-12.0); NRBC Flagged by Analyzer 0 % (0-5); POSITIVE DIFFERENTIAL YES; Platelet Count 165 K/mm3 (150-450); RBC Distribution Width CV 12.2 % (11.6-14.6); RBC Distribution Width SD 42.6 fl (35.1-43.9); Red Blood Count 4.32 M/mm3 (4.2-5.4); White Blood Count 4.5 K/mm3 (4.4-11.0)
[2025-02-15 16:10] LABS: AST(SGOT) 22 U/L (<=31); Alanine Aminotransfer ALT/SGPT 13 U/L (<=34); Albumin, Serum 4.2 g/dL (3.4-4.8); Alkaline Phosphatase 61 U/L (35-104); Anion Gap 11 (5-15); BUN 8 mg/dL (4-19); BUN/Creat Ratio 12.4 RATIO (10-20); Calcium 8.8 mg/dL (7.6-11.0); Calcium,Total 8.8 mg/dL (7.6-11.0); Carbon Dioxide 24.8 mmol/L (21.0-32.0); Chloride 97 mmol/L (98-108); Globulin 2.4 g/dL (2.2-4.2); Glucose 114 mg/dL (70-99); Potassium 4.2 mmol/L (3.3-5.1)
[2025-02-15 16:12] LABS: CRP < 3.00 mg/L (0.0-3.0); Magnesium 2.1 mg/dL (1.5-2.2)
== END | disposition home or self-care (01) ==
LOC: MTLAB 11:27
PROVIDERS: PCP Internal Medicine Infectious Disease; Referring Provider Psychiatry & Neurology Neurology; Visit Provider Psychiatry & Neurology Neurology
DX: G35 Multiple sclerosis (principal); M05.79 Rheumatoid arthritis with rheumatoid factor of multiple sites without organ or systems involvement; M81.0 Age-related osteoporosis without current pathological fracture; Z79.899 Other long term (current) drug therapy
CPT/HCPCS: 36415; 80053; 82310; 83735; 84100; 85025; 85652; 86140

== ENCOUNTER → 2025-06-16 | Outpatient (CLI) | payer MEDICARE, OTHER, SELFPAY ==
[2025-06-16 10:16] LABS: Hematocrit 42.4 % (37-47); Hemoglobin 14.1 g/dL (12.0-15.0); Mean Corp Hgb Conc 33.3 g/dL (32-36); Mean Corpuscular Volume 92.6 fL (81-99); Mean Platelet Vol. 10.4 fl (6.2-12.0); Platelet Count 152 K/mm3 (150-450); RBC Distribution Width CV 11.9 % (11.6-14.6); RBC Distribution Width SD 41.1 fl (35.1-43.9); Red Blood Count 4.58 M/mm3 (4.2-5.4); White Blood Count 4.0 K/mm3 (4.4-11.0)
[2025-06-16 10:32] LABS: Color, Urine Yellow (Yellow); Glucose, Dipstick Normal (Normal); Ketone-Dipstick Negative (Negative); Leukocyte Esterase-Dipstick Negative /ul (Negative); Nitrite-Dipstick Negative (Negative); Occult Blood-Urine 25 /ul (Negative); Protein-Dipstick 15 mg/dl (Negative); Specific Gravity, Urine 1.010 (1.002-1.030); Urine Bilirubin Dipstick Negative (Negative)
[2025-06-16 13:07] LABS: AST(SGOT) 55 U/L (<=31); Alanine Aminotransfer ALT/SGPT 42 U/L (<=34); Albumin, Serum 4.2 g/dL (3.4-4.8); Alkaline Phosphatase 66 U/L (35-104); Anion Gap 9 (5-15); BUN 8 mg/dL (4-19); BUN/Creat Ratio 13.2 RATIO (10-20); Calcium,Total 9.0 mg/dL (7.6-11.0); Carbon Dioxide 27.2 mmol/L (21.0-32.0); Chloride 100 mmol/L (98-108); Cholesterol 246 mg/dL (<=200); Globulin 2.6 g/dL (2.2-4.2); Glucose 95 mg/dL (70-99); Low Density Lipoprotein Calc. 152 mg/dL; Potassium 4.7 mmol/L (3.3-5.1); Triglycerides 134 mg/dL; Very Low Density Lipoprotein 27 mg/dL (5-40); cholesterol:hdl ratio screen 3.51
== END | disposition home or self-care (01) ==
LOC: MTLAB 08:44
PROVIDERS: PCP Internal Medicine Infectious Disease; Referring Provider Internal Medicine Infectious Disease; Visit Provider Internal Medicine Infectious Disease
DX: E78.5 Hyperlipidemia, unspecified (principal); R31.9 Hematuria, unspecified
CPT/HCPCS: 36415; 80053; 80061; 81002; 84443; 85027

== ENCOUNTER → 2025-06-28 | Outpatient (CLI) | payer MEDICARE, OTHER, SELFPAY | END | disposition home or self-care (01) | LOC: LABSPEC 15:39 | PROVIDERS: PCP Internal Medicine Infectious Disease; Visit Provider Physician Assistant | DX: R30.0 Dysuria (principal) | CPT/HCPCS: 87077; 87086; 87088; 87186 ==